=== PATIENT | female | born 1945 | race Caucasian/White ===

== ENCOUNTER 2025-07-17 17:34 | Inpatient (IN) | payer SELFPAY ==
[~2025-07-17] VITALS: Ht 160 cm; Wt 92.6 kg
[~2025-07-17 17:34] MED LIST: DOBUTamine/D5W 500mg/250ml premix IV ONE; calcium chloride 100 MG/1 ML inj IV ONE; epiNEPHrine 0.1mg/ml 10ml syringe ONE
--- NOTE | 2025-07-17 17:46 | ELECTROCARDIOGRAPH REPORT ---
[facility] Test Date: 2025-07-17 Test Time: 17:35:59 Pat Name: SONIA BRANTLEY Department: EMERGENCY ROOM Patient ID: [id number] Room: Gender: F Relief Pharmacist: MIRANDA : 1945 Requested By: PERI CASTRO Order Number: [id number] Reading MD: Measurements Intervals [place] Rate: 59 P: 0 NE: 61 QRS: 163 QRSD: 177 T: 25 QT: 470 QTc: 466 Interpretive Statements Sinus bradycardia Multiple premature complexes, vent & supraven Short NE interval Right bundle branch block Baseline wander in lead(s) I,aVL Please click the below link to view image of tracing.
--- NOTE | 2025-07-17 17:48 | Physician Documentation ---
History of Present Illness General Chief Complaint: Respiratory Arrest Stated Complaint: RESPIRATORY Time Seen by MD: 17:48 History of Present Illness Initial Comments The patient is a 80-year-old female who has had a history of atrial fibrillation as well as a coronary angiogram 18 years ago who had sudden onset collapse and CPR was performed for 4 minutes the patient received one round of epinephrine in the field through an IO that was placed in the right leg, the patient had return of spontaneous circulation after the epinephrine. The patient arrived in the emergency room conversant breathing on her own. The patient denies any preced ing chest pain or shortness of breath. She denies any recent changes to her medications. She states he recently went back into AFib and she does take Eliquis. The patient denies any chest pain or shortness of breath Medication Reconciliation Allergies: Coded Allergies: No Known Allergies (Unverified , 07/17/25) Scheduled Apixaban (Eliquis), 1 TAB PO BID, (Reported) Carvedilol Phosphate (Carvedilol ER), 1 CAP PO DAILY, (Reported) Losartan Potassium (Losartan Potassium), 1 TAB PO HS, (Reported) Propafenone HCl (Propafenone HCl), 1 CAP PO BID, (Reported) Rosuvastatin Calcium (Rosuvastatin Calcium), 1 TAB PO DAILY, (Reported) Past Medical History Past Medical History: Atrial Fibrillation, Coronary Artery Disease Review of Systems All Other Systems at this time: Reviewed and Negative Physical Exam Physical Exam Physical Exam VITALS: Reviewed and as above. GENERAL: Alert, no apparent distress. HEENT: Normocephalic, atraumatic, PERRL, EOMI, dry mucosa, no erythema RESPIRATORY: Lungs clear, normal breath sounds, no respiratory distress. CHEST: No accessory muscle use, no retractions CV: Bradycardic irregularly irregular rhythm, no edema, no murmur, No: JVD GI: Soft, non-tender, bowels sounds present, no rebound, guarding, or rigidity BACK: No CVA tenderness, or swelling MUSCULOSKELETAL: No deformities, no edema SKIN: Pale cool NEURO: Oriented x4, No motor or sensory deficit PSYCH: Normal mood and affect, no agitation Progress Progress Note The patient presented after 4 minutes of CPR and one round of epi in the field for sudden onset cardiac arrest, the patient had regain of spontaneous pulse and circulation in route to the emergency department and was conversant and at her neurologic baseline on arrival in the emergency department. The patient's EKG shows a bradycardic rate of uncertain etiology possibly atrial fib possibly complete heart block, the patient has remained hemodynamically stable the p atient will be admitted to the ICU the patient has been discussed with the oncoming physician the patient will be signed out to the oncoming physician for further management. Results/Orders Results/Orders Orders - OHLPERI SOSA MD Chest,Single View (07/17/25 17:44) Monitor (07/17/25 17:44) Saline Lock (07/17/25 17:44) Oxygen (07/17/25 17:44) Completed Orders - PERI BLACKWELL MD Chest,Single View (07/17/25 17:44) Cbc/Diff (07/17/25 17:44) BMP (07/17/25 17:44) PBNP (07/17/25 17:44) Electrocardiogram (07/17/25 17:44) Hs Troponin I W Calculations (07/17/25 17:44) Hs Troponin I W Calculations (07/17/25 19:44) Hs Troponin I W Calculations (07/17/25 20:44) Man Diff (07/17/25 17:38) Pathology Review (07/17/25 17:38) Normal Saline 1000ml (0.9% Sodium Chlori (07/17/25 18:15) MG (07/17/25 17:38) Vital Signs 07/17/25 07/17/25 07/17/25 07/17/25 17:45 17:49 18:04 18:08 Temp 99.1 Pulse 56 67 57 Resp 24 20 24 B/P (MAP) 129/89 96/77 (83) Pulse Ox 96 96 98 98 O2 Delivery Simple Mask* Nasal Cannula* Non-Rebreather O2 Flow Rate 10.0 10 10.0 2 FiO2 99 N/A 07/17/25 07/17/25 07/17/25 07/17/25 18:18 18:30 18:36 18:50 Pulse 49 46 49 Resp 19 24 24 22 B/P (MAP) 75/43 (54) 99/63 (75) 105/64 (78) Pulse Ox 100 98 99 O2 Flow Rate 10.0 10.0 10.0 07/17/25 18:58 Pulse 55 Resp 28 B/P (MAP) 127/83 (98) Laboratory Tests Test 07/17/25 17:38 07/17/25 17:46 White Blood Count 11.8 H Red Blood Count 3.96 L Hemoglobin 12.0 Hematocrit 37.5 Mean Corpuscular Volume 94.7 Mean Corpuscular Hemoglobin 30.2 Mean Corpuscular Hemoglobin Concent 31.9 L Red Cell Distribution Width 14.5 Platelet Count 219 Mean Platelet Volume 9.4 Neutrophils (%) (Auto) 46.1 Lymphocytes (%) (Auto) 44.2 Monocytes (%) (Auto) 6.6 Eosinophils (%) (Auto) 2.7 Basophils (%) (Auto) 0.4 Neutrophils # (Auto) 5.5 Lymphocytes # (Auto) 5.2 H Monocytes # (Auto) 0.8 Eosinophils # (Auto) 0.3 Basophils # (Auto) 0.0 CBC Comment Differential Total Cells Counted 100 Neutrophils % (Manual) 50.0 Lymphocytes % (Manual) 38.0 Monocytes % (Manual) 7.0 Eosinophils % (Manual) 2.0 Reactive Lymphocytes 3.0 H Platelet Estimate Normal Giant Platelets Few Red Blood Cell Morphology Normal Basophilic Stippling Hematology Pathologist Comment See note Sodium Level 142 Potassium Level 3.8 Chloride Level 104 Carbon Dioxide Level 24.6 Anion Gap 13 Blood Urea Nitrogen 25 H Creatinine 1.53 H Estimated GFR/1.73 m2 33 BUN/Creatinine Ratio 16.3 17.9 Glucose Level 138 H Calcium Level 8.5 Magnesium Level 2.4 Troponin I High Sensitivity 10 Pro-B-Type Natriuretic Peptide 1503 H Albumin 3.3 L Chemistry Comments Bedside Hemoglobin 11.9 L Bedside Hematocrit 35 Bedside Sodium 143 Bedside Potassium 3.8 Bedside Chloride 105 Bedside Total CO2 23 L Bedside Anion Gap 15 H Bedside Blood Urea Nitrogen 25 H Bedside Creatinine 1.4 H Bedside Estimated GFR (eGFR) 36 Bedside Glucose 142 H Bedside Ionized Calcium (Shannon) 1.17 Medical Decision Making Additional information obtaine: other Findings Twelve lead EKG demonstrates a bradycardia with bradycardia right bundle-branch block nonspecific ST-T abnormalities rate of 57 time of the EKG is 1737 the EKG was interpreted by me Differential Diagnosis Cardiac arrest, dysrhythmia, electrolyte derangement Addendum Sign-out note: I received sign-out on this patient at shift change. Briefly: She presents with cardiac arrest. Now she is awake and alert. Pending workup. Re-evaluation: The patient is awake and alert, appears pale. She is hypotensive and bradycardic. Reviewed her EKG which shows a abnormal rhythm, po ssibly reperfusion rhythm. The patient's blood pressure continued to decrease. She was given push dose epinephrine with minimal improvement. She was given IV calcium. We planned for central line or possible pacemaker. She was then started on dobutamine. She responded well to this, including increased heart rate and blood pressure. Labs returned without an obvious cause for this episode. Consult: I spoke to the internal medicine service, for admission in the hospital Critical Care Note The very real possibility of a deterioration of this patient's condition required the highest level of my preparedness for sudden, emergent intervention. I provided critical care services, which included medication orders, frequent reevaluations of the patient's condition and response to treatment, ordering and reviewing test results, and discussing the case with various consultants. Excludes time spent performing separately billable procedures. The critical care time associated with the care of the patient was 45 minutes in the management of hypotensive cardiogenic shock Flavio Gottlieb MD Departure Impression: Primary Impression: Cardiac arrest Referrals: NO PRIMARY CARE PROVIDER (PCP) Signature Scribe Signature: na Attestation: na The note accurately reflects work and decisions made by me.Peri Blackwell MD 07/21/25 07:13 PERI BLACKWELL MD Jul 17, 2025 17:48 FLAVIO GOTTLIEB MD Jul 19, 2025 03:09
[2025-07-17 17:49] VITALS: PULSE 67; RESP 20; O2SAT 96
[2025-07-17 17:54] LABS: MEAN PLATELET VOLUME 9.4 FL (7.4-10.4); RED CELL DISTRIBUTION WIDTH 14.5 % (11.5-14.5)
--- NOTE | 2025-07-17 18:12 | RADIOLOGY REPORT ---
CHEST RADIOGRAPH Indication: CP Technique: Single frontal view of the chest was obtained Comparison: None FINDINGS: Lines and Tubes: None Lungs: No focal consolidation. Fat interstitial prominence. Pleura: No effusion. No pneumothorax. Cardiomediastinal contours: Borderline cardiomegaly Bones: No acute osseous abnormality. IMPRESSION: Borderline cardiomegaly with mild pulmonary vascular congestion.
[2025-07-17 18:15] LABS: CREATININE 1.53 MG/DL (0.40-0.90); PRO BRAIN NATRIURETIC PEPTIDE 1503 PG/ML (0-450); TOTAL CARBON DIOXIDE 24.6 MMOL/L (24-32); eCRCL 25 ML/MIN; eGFR 33 ML/MIN
[2025-07-17] MEDS: normal saline 1000ml 1,000 ML IV ONE (18:18)
[2025-07-17] MEDS: normal saline 1000ml 1,000 ML IV SCH (18:25)
[2025-07-17] MEDS ORDERED: morphine 4 MG/ML inj SYRINge IV PRN (18:25)
[2025-07-17] MEDS ORDERED: DOPamine 400mg/D5W 250ml 250 ML IV SCH (18:25)
[2025-07-17] MEDS ORDERED: ondansetron/PF 4mg/2ml inj IV PRN (18:25)
[2025-07-17] MEDS: DOBUTamine-DoBUTrex 500mg/D5W 250 ML IV PRN (18:37)
[2025-07-17] MEDS ORDERED: DOBUTamine-DoBUTrex 500mg/D5W 250 ML IV PRN (18:40)
[2025-07-17 18:42] LABS: EOSINOPHILS % (MANUAL) 2.0 % (0-6); LYMPHOCYTES % (MANUAL) 38.0 % (21-51); MONOCYTES % (MANUAL) 7.0 % (2-12); NEUTROPHILS % (MANUAL) 50.0 % (42-75); REACTIVE LYMPHOCYTES % 3.0 % (0-0)
[2025-07-17 18:43] LABS: GIANT PLATELET FEW; PLATELET ESTIMATE NORMAL
--- NOTE | 2025-07-17 19:11 | HISTORY AND PHYSICAL-Residence ---
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 The patient was traveling from [facility] to [place] for the [facility], and as she got out of a car she progressively became short of breath and collapsed to the ground. A bystander noticed and started doing chest compressions and called the EMS. On arrival of the EMS, the patient was found to be in asystole. She was coded for 4 minutes and received epinephrine during this time. She was stabilized and brought into the ER, she was awake, alert and oriented x4. However, she was bradycardic and hypotensive due to which ICU was consulted for admission. She denies any prior similar history of cardiac arrest. She denies recent nausea, vomiting, diarrhea, recent illnesses that could cause electrolyte imbalances. Her baseline rhythm is first-degree heart block and her resting heart rate as per the patient is usually between 50-60 and her blood pressure runs most of time between 110/80 but sometimes does happen to go down to the 90s systolic. Allergies: Coded Allergies: No Known Allergies (Unverified , 07/17/25) Past Medical History Past Medical History CAD to the LAD x2 2002 Orthostatic hypotension, stopped midodrine in January 2025 as hypotension resolved Recurrence of paroxysmal atrial fibrillation in 2024- on metoprolol and Eliquis Past Surgical History Surgical History Comment Bilateral parathyroidectomy Past Social History Social History Comment Lifetime nonsmoker. Occasionally drinks alcohol, no other illicit drug abuse. 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 Ambulates independently ROS ROS As stated above in the HPI, otherwise all systems are reviewed and negative. Exam Vitals: Vital Signs Date Time Temp Pulse Resp B/P (MAP) Pulse Ox O2 Delivery O2 Flow Rate FiO2 07/17/25 18:58 55 28 127/83 (98) 07/17/25 18:50 99 10.0 07/17/25 18:08 Nasal Cannula* N/A Non-Rebreather 07/17/25 17:45 99.1 General: General: Awake and Alert, complaining of chest pain HEENT: Conjunctiva pink, Sclera clear, Mucus Membranes moist. Resp: Unlabored. Bilateral rhonchi heard Heart: Bradycardia, normal S1 and S2 without murmur, rub or gallop. Abdomen: Soft and non tender no organomegaly. Bowel sounds present Extremities: No cyanosis,clubbing or edema. Right IO in place Skin: Warm and Dry. No rashes Diagnostic Data Last Recorded Lab Results: 07/17/25 1738 07/17/25 1738 Advance Care Planning Advanced Care plannin - 30 Minutes Additional Plan Out of hospital cardiac arrest Asystole on the field Hypotension secondary to above EKG in the hospital reveals right bundle branch block, PACs and sinus bradycardia Stat echocardiogram ordered 2 L IV fluid boluses given, continue maintenance IVF at a rate of 75 cc/hour Heart rate and blood pressure improved significantly with dobutamine drip; currently running at a low rate at 1.5 units/kg/hour Consulted Dr. High, plan for pacemaker in a.m. Patient is currently asymptomatic with the bradycardia, if she develops any symptoms, prefer transcutaneous pacing Maintain map greater than 65. Maintain heart rate greater than 40 bpm Close telemetry monitoring Atrial fibrillation: Currently in sinus rhythm Continue telemetry monitoring Stop metoprolol at discharge Eliquis to be restarted 24 hours after pacemaker placement CAD status post PTCA: PTCA to the proximal and distal LAD in 2002 [place]s forensic materials engineer [place] [facility]. Garland Continue statin after reconciliation Acute on chronic kidney injury: Continue IVF Lines: PIV DVT prophylaxis: Lovenox Gi prophylaxis: Protonix Diet: Heart healthy Code status: Full code; POA sister Brielle Amada Villafana PGY3, Internal medicine resident Patient seen, examined and plan of care discussed with Dr. Nakia MD Patient is seen and examined and agree with above assessment and plan. Overall prognosis remains guarded Critical care time in excess of 35 minutes. Date of Service: Jul 17, 2025 Billing Provider: JANAY FELTON MD, DEEPANJALI, [facility] Jul 17, 2025 19:11 JANAY FELTON MD Jul 18, 2025 13:48
[2025-07-17] MEDS: fentaNYL/PF 50MCG/1 ML 2ML syringe IV ONE ×2 (20:27→20:40)
[2025-07-17] MEDS ORDERED: CARV10CP7 PO (20:53)
[2025-07-17] MEDS ORDERED: LOSA50TA64 PO (20:53)
[2025-07-17] MEDS ORDERED: ROSU40TA89 PO (20:53)
[2025-07-17] MEDS ORDERED: APIX5TAB3 PO (20:53)
[2025-07-17] MEDS ORDERED: [UNRECOGNIZED DRUG - CODE] PO (20:53)
[2025-07-17] MEDS: ondansetron/PF 4mg/2ml inj IV STA (21:04)
[2025-07-17 22:30] VITALS: BP 109/76; PULSE 72; RESP 30; O2SAT 92
[2025-07-17 23:00] VITALS: BP 109/54; PULSE 72; RESP 22; RESP 26; O2SAT 92; O2SAT 97
[2025-07-17 23:23] VITALS: PULSE 71; RESP 12; RESP 72; O2SAT 93
[2025-07-18] VITALS (27 sets, daily range): BP systolic 89–117; BP diastolic 52–72; PULSE 68–121; RESP 0–27; O2SAT 92–98
[2025-07-18] MEDS: ketorolac trometh 15mg/ml vial 15 MG/ML ML IV ONE (00:24)
[2025-07-18] MEDS ORDERED: DOBUTamine/D5W 500mg/250ml premix IV ONE (03:00)
[2025-07-18] MEDS ORDERED: epiNEPHrine 0.1mg/ml 10ml syringe ONE (03:00)
[2025-07-18] MEDS ORDERED: calcium chloride 100 MG/1 ML inj IV ONE (03:00)
[2025-07-18 06:04] LABS: MEAN PLATELET VOLUME 9.6 FL (7.4-10.4); RED CELL DISTRIBUTION WIDTH 14.2 % (11.5-14.5)
[2025-07-18 06:14] LABS: APTT 28 SECONDS (22-32); INR 1.2 INR
--- NOTE | 2025-07-18 06:19 | ELECTROCARDIOGRAPH REPORT ---
[facility] Test Date: 2025-07-17 Test Time: 21:35:18 Pat Name: SONIA WARNER Department: EMERGENCY ROOM Room: [place] [address] Gender: F Directory Compiler: MORIAH : 1945 Requested By: JANYA FELTON Order Number: [id number] Reading MD: Dr. CRISTHIAN High Measurements Intervals [place] Rate: 66 P: 27 DC: 339 QRS: -10 QRSD: 112 T: 83 QT: 427 QTc: 448 Interpretive Statements Sinus rhythm Atrial premature complex Prolonged DC interval Probable left atrial enlargement Incomplete left bundle branch block Low voltage, extremity and precordial leads Anterior Q waves, possibly due to ILBBB Electronically Signed On 07-19-2025 15:17:[address] CRISTHIAN High Please click the below link to view image of tracing.
[2025-07-18 06:27] LABS: CREATININE 1.35 MG/DL (0.40-0.90); PHOSPHORUS 4.3 MG/DL (2.3-4.5); TOTAL CARBON DIOXIDE 23.7 MMOL/L (24-32); eCRCL 28 ML/MIN; eGFR 38 ML/MIN
[2025-07-18 07:48] LABS: ISTAT ANION GAP 15.0 (8-12); ISTAT BUN 25.0 mg/dL (7-18); ISTAT CL 105.0 mmol/L (99-107); ISTAT CREATININE 1.4 mg/dL (0.6-1.1); ISTAT GLUCOSE 142.0 mg/dL (70-104); ISTAT HGB 11.9 g/dl (12.0-16.0); ISTAT Hct 35.0 %PCV (35-45); ISTAT IONIZED CALCIUM 1.17 mmol/L (1.03-1.32); ISTAT K 3.8 mmol/L (3.5-5.1); ISTAT NA 143.0 mmol/L (135-145); ISTAT TOTAL CO2 23.0 mmol/L (24-32); ISTAT eGFR 36.0 ML/MIN; POC BUN/CREATININE RATIO 17.9 (6.6-38.0)
[2025-07-18] MEDS ORDERED: enoxaparin 40mg/0.4ml syringe SUBCUT SCH (08:00)
[2025-07-18] MEDS ORDERED: fentaNYL/PF 50MCG/1 ML 2ML syringe ONE (09:50)
[2025-07-18] MEDS ORDERED: iohexol 350 MG/ML 50ML vial IV ONE (09:50)
[2025-07-18] MEDS ORDERED: midazolam 1 mg/ML 2ml injection ONE ×2 (09:50→11:33)
[2025-07-18] MEDS ORDERED: LIDOcaine 1% W/epiNEPHrine 1:100,000 20ml vial ONE (09:51)
[2025-07-18] MEDS: normal saline 500ml IV soln 500 ML IV SCH (12:54)
[2025-07-18] MEDS ORDERED: HYDROcodone/acetaminophen 10/325mg tab PO PRN (12:55)
[2025-07-18] MEDS ORDERED: HYDROcodone/acetaminophen 5mg/325mg tablet PO PRN (12:55)
--- NOTE | 2025-07-18 13:53 | PROGRESS NOTE ---
Subjective Subjective Patient is seen today. She is status post pacemaker implantation after cardiac arrest and high-grade AV block. Reason for visit: Pulmonary critical care follow-up Reviewed: Care Plan, H&P, Labs, Radiology Review of Systems Changes from previous H/P or p: No Changes Daily Progress Note Exam Vitals Vital Signs Date Time Temp Pulse Resp B/P (MAP) Pulse Ox O2 Delivery O2 Flow Rate FiO2 07/18/25 13:00 76 19 107/63 (78) 96 Nasal Cannula 5.0 07/18/25 07:53 36 07/18/25 03:00 98.2 Result Diagram: 07/18/2514 07/18/2514 Exam General: Awake and Alert, complaining of chest pain HEENT: Conjunctiva pink, Sclera clear, Mucus Membranes moist. Resp: Unlabored. Bilateral rhonchi heard Heart: Bradycardia, normal S1 and S2 without murmur, rub or gallop. Abdomen: Soft and non tender no organomegaly. Bowel sounds present Extremities: No cyanosis,clubbing or edema. Right IO in place Skin: Warm and Dry. No rashes Results Coagulation Studies Laboratory Tests Test 07/18/25 05:14 Prothrombin Time 11.8 SECONDS (9.0-12.0) INR International Normalized Ratio 1.2 INR Activated Partial Thromboplast Time 28 SECONDS (22-32) Coagulation Comments VTE VTE Risk Score VTE Risk Score Reference Ranges: Score 0-1 = Low Risk (Aggressive mobilization; early ambulation; no VTE prophylaxis required) Score 2: Moderate Risk (Intermittent/Pneumatic Compression Device OR Lovenox/Heparin/Coumadin) Score 3-4: High Risk (Intermittent/Pneumatic Compression Device AND Lovenox/Heparin/Coumadin) Score > or = 5: Highest Risk (Intermittent/Pneumatic Compression Device AND Lovenox/Heparin/Coumadin) Assessment/Plan Plan Advanced Care planning: Additional Plan Out of hospital cardiac arrest Asystole on the field Hypotension secondary to above Status post pacemaker implantation. Off pressors. 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 Garland Continue statin after reconciliation Acute on chronic kidney injury: Continue IVF Lines: PIV DVT prophylaxis: Lovenox Gi prophylaxis: Protonix Diet: Heart healthy Code status: Full code; POA sister Brielle Overall prognosis remains guarded Critical care time in excess of 35 minutes. JANAY FELTON MD Jul 18, 2025 13:53
--- NOTE | 2025-07-18 14:44 | CARDIOLOGY REPORT ---
APPROVED REPORT EXAM: Comprehensive 2D, Doppler, and color-flow Echocardiogram. Patient Location: 2008 A Blood Pressure: 101/65 mmHg Heart Rate: 71 bpm Rhythm: Sinus Rhythm Indications Cardiomegaly S/P Cardiac Arrest (4 min of CPR) Respiratory Distress 1st Degree Heart block/ Bradycardia Hx of CAD Stents X 2 LAD (2002) Aircraft Cleaner: MD Karlee (Consult) Previous echo: None available (Patient is from the area) 2D Dimensions RVDd 3.4 cm LA Diam 3.9 cm RA Minor 4.1 cm LVOT Diameter 2.13 (1.8-2.4cm) Ao Asc Diam. 3.15 cm IVC 16.00 mm CO 3.0 L/min M-Mode Dimensions IVSd 1.28 (0.7-1.1cm) LVDd 4.49 (4.0-5.6cm) PWd 1.32 (0.7-1.1cm) IVSs 1.52 cm LVDs 2.92 (2.0-3.8cm) FS (%) 36 % PWs 1.64 cm ESV(Teich) 22.5 ml LVEF(%) 66 (>50%) Aortic Valve AoV Peak Andrew. 259.9 cm/s AoV VTI 51.2 cm AO Peak GR. 27.0 mmHg AO Mean GR. 14 mmHg LVOT VTI 20.00 cm LVOT Peak Andrew. 106.1 cm/s DANDRE (VTI) 1.54 cm2 AV DI 0.39 % Mitral Valve MV E Velocity 105.5 cm/s MV Peak Gr. 6 mmHg MV DECEL TIME 244 ms MV A Velocity 64.8 cm/s MV Mean Gr. 2 mmHg MV PHT 68 ms E/A Ratio 1.6 MV VMax 125.7 cm/s MV VMean 64.2 cm/s MVA VTI 2.87 cm2 MV VTI 28.8 cm Tricuspid Valve TR P. Velocity 258 cm/s RAP ESTIMATE 10 mmHg TR Peak Gr. 27 mmHg RVSP 37 mmHg LEFT VENTRICLE Normal LV size and function. Mild concentric hypertrophy. Overall LVEF is 65-70%. RIGHT VENTRICLE Right ventricle is mildly dilated with normal function. Estimated PA systolic pressure is 37 mmHg. ATRIA The left atrium size is normal. Right atrium is mildly dilated. AORTIC VALVE Trileaflet AV appears moderately calcified with at least mild stenosis. DANDRE: 1.54 cmsq; Pkv : 259.9 cm/sec; Gradients: 27/14 mmHG. No significant insufficiency appreciated. Doppler measurements are estimates due to poor Doppler angles. Recommend clinical correlation if indicated. MITRAL VALVE Moderate MV annular calcification with very mild stenosis. MVA:2.89 cmsq (Averaged VTI); Pkv: 125.7 cm/sec; Gradients: 6/2 mmHG. Mild regurgitation. TRICUSPID VALVE TV appears structurally normal with mild regurgitation. PULMONIC VALVE Normal PV without stenosis, physiologic insufficiency. GREAT VESSELS The aortic root is normal in size. IVC is normal in size and collapses less than 50% with inspiration. PERICARDIUM Normal pericardium. Epicardial fat pad is noted. No pericardial effusion seen. Other Information Study Quality: Fair. TDS due to body habitus and respiratory status. Conclusion Overall LVEF is 65-70%. Normal LV size and function. Mild concentric hypertrophy. Right ventricle is mildly dilated with normal function. Estimated PA systolic pressure is 37 mmHg. Trileaflet AV appears moderately calcified with at least mild stenosis. DANDRE: 1.54 cmsq; Pkv : 259.9 cm/sec; Gradients: 27/14 mmHG. No significant insufficiency appreciated. Doppler measurements are estimates due to poor Doppler angles. Recommend clinical correlation if indicated. Moderate MV annular calcification with very mild stenosis. MVA:2.89 cmsq (Averaged VTI); Pkv: 125.7 cm/sec; Gradients: 6/2 mmHG. Mild regurgitation. TV appears structurally normal with mild regurgitation. Normal PV without stenosis, physiologic insufficiency. Normal pericardium. Epicardial fat pad is noted. No pericardial effusion seen.
[2025-07-18] MEDS: HYDROcodone/acetaminophen 10/325mg tab PO PRN (14:52)
[2025-07-18] MEDS ORDERED: vancomycin/NS 1 GM ADD-VANTAGE 250 ML IV ONE (15:00)
[2025-07-18] MEDS: vancomycin/NS 1 GM ADD-VANTAGE 250 ML X 1 DOSE IV ONE (15:30)
--- NOTE | 2025-07-18 18:11 | RADIOLOGY REPORT ---
CHEST RADIOGRAPH Indication: s/p pacemaker placement Technique: Single frontal view of the chest was obtained COMPARISON: DI CHEST,SINGLE VIEW on DOS: 07/17/25 FINDINGS: Lines and Tubes: Left chest pacemaker Lungs: Congestion Pleura: No effusion.No pneumothorax. Cardiomediastinal contours: Cardiomegaly Bones: Unremarkable IMPRESSION: Pulmonary vascular congestion, mild
[2025-07-19] VITALS (18 sets, daily range): BP systolic 81–109; BP diastolic 52–66; PULSE 79–127; RESP 14–22; TEMP 96.6–98.1; O2SAT 90–97
[2025-07-19 03:40] LABS: MEAN PLATELET VOLUME 9.3 FL (7.4-10.4); RED CELL DISTRIBUTION WIDTH 14.2 % (11.5-14.5)
[2025-07-19 05:48] LABS: APTT 30 SECONDS (22-32); INR 1.1 INR
[2025-07-19 06:11] LABS: CREATININE 0.97 MG/DL (0.40-0.90); PHOSPHORUS 2.9 MG/DL (2.3-4.5); TOTAL CARBON DIOXIDE 23.7 MMOL/L (24-32); eCRCL 40 ML/MIN; eGFR 56 ML/MIN
--- NOTE | 2025-07-19 11:02 | PROGRESS NOTE ---
Subjective Subjective Patient is seen today. She is status post pacemaker implantation after cardiac arrest and high-grade AV block. Complain of anterior chest wall pains after cardiac arrest and CPR. Reason for visit: Pulmonary critical care follow-up Reviewed: Care Plan, H&P, Labs, Radiology Daily Progress Note Exam Vitals Vital Signs Date Time Temp Pulse Resp B/P (MAP) Pulse Ox O2 Delivery O2 Flow Rate FiO2 07/19/25 10:50 22 07/19/25 10:00 104 97/53 (68) 96 Nasal Cannula 2.0 07/19/25 08:00 96.8 07/18/25 18:53 36 Result Diagram: 07/19/25 0322 07/19/25 0433 Exam General: Awake and Alert, complaining of chest pain HEENT: Conjunctiva pink, Sclera clear, Mucus Membranes moist. Resp: Unlabored. Bilateral rhonchi heard Heart: Bradycardia, normal S1 and S2 without murmur, rub or gallop. Abdomen: Soft and non tender no organomegaly. Bowel sounds present Extremities: No cyanosis,clubbing or edema. Right IO in place Skin: Warm and Dry. No rashes Results Coagulation Studies Laboratory Tests Test 07/19/25 04:33 Prothrombin Time 11.6 SECONDS (9.0-12.0) INR International Normalized Ratio 1.1 INR Activated Partial Thromboplast Time 30 SECONDS (22-32) Coagulation Comments VTE VTE Risk Score VTE Risk Score Reference Ranges: Score 0-1 = Low Risk (Aggressive mobilization; early ambulation; no VTE prophylaxis required) Score 2: Moderate Risk (Intermittent/Pneumatic Compression Device OR Lovenox/Heparin/Coumadin) Score 3-4: High Risk (Intermittent/Pneumatic Compression Device AND Lovenox/Heparin/Coumadin) Score > or = 5: Highest Risk (Intermittent/Pneumatic Compression Device AND Lovenox/Heparin/Coumadin) Assessment/Plan Plan Advanced Care planning: Additional Plan Out of hospital cardiac arrest Asystole on the field Hypotension secondary to above: Resolved and off pressors. Status post pacemaker implantation. Off pressors. Atrial fibrillation: Currently in AFib. Continue telemetry monitoring Restart Eliquis as per Cardiology Services. 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 Garland Continue statin after reconciliation Acute on chronic kidney injury: Continue IVF Lines: PIV DVT prophylaxis: Resume Eliquis. Gi prophylaxis: Protonix Diet: Heart healthy Code status: Full code; POA sister Brielle Overall prognosis remains guarded Critical care time in excess of 35 minutes. JANAY FELTON MD Jul 19, 2025 11:02
[2025-07-19] MEDS: normal saline 500ml IV soln 500 ML IV ONE (11:22)
[2025-07-19] MEDS: metoprolol tartrate 1mg/ml inj IV ONE ×2 (11:30→12:00)
[2025-07-19] MEDS: propafenone 150mg tablet PO SCH (11:41)
--- NOTE | 2025-07-19 15:07 | PROGRESS NOTE ---
Progress Note Cardiology Providers to CC ~ Subjective Subjective Patient seen and examined in ICU this morning. Overall she is doing well. Pacemaker is working fine. Patient has developed AFib with RVR. Objective Result Diagram: 07/19/25 0322 07/19/25 0433 Objective General: Normal body habitus, no acute distress, HEENT: Sclerae clear, PERRL, gums without lesions or bleeding, oropharynx clear without erythema or exudate. Neck: Supple without enlargement of the thyroid, or lymphadenopathy, Chest: Normal size and shape, no tenderness, nonlabored breathing, Breath sounds clear to auscultation. Heart: Irregularly irregular, variable S1. Abdomen: Soft, nontender, no organomegaly, bowel sounds present. Extremities: No edema cyanosis or clubbing. Pacemaker site looks good. Coagulation Studies Laboratory Tests Test 07/19/25 04:33 Prothrombin Time 11.6 SECONDS (9.0-12.0) INR International Normalized Ratio 1.1 INR Activated Partial Thromboplast Time 30 SECONDS (22-32) Coagulation Comments Problem\Assessment\Plan Additional Plan 1. 80-year-old female with third-degree AV block with asystole: Status post dual-chamber ppm on 07/18/25. Pacemaker working well. Chest x-ray shows no pneumothorax. Patient educated about staple removal in one week with her primary building construction teacher 2. History of PAF: It recurred this morning. Resume propafenone 300 mg p.o. t.i.d. resume anticoagulation continue beta blockers. 3. CAD status post proximal and distal LAD stent: Recommend aspirin 81 mg p.o. q.d. 4. Hypertension hyperlipidemia counseled on coronary risk factor modification MACI MOLINA MD Jul 19, 2025 15:07
[2025-07-19] MEDS: normal saline 1000ml 500 ML IV ONE (22:05)
[2025-07-20] VITALS (30 sets, daily range): BP systolic 82–121; BP diastolic 46–78; PULSE 64–124; RESP 12–26; TEMP 97.5–97.8; O2SAT 91–99
[2025-07-20] MEDS: normal saline 1000ml 500 ML IV ONE (02:10)
[2025-07-20 06:25] LABS: MEAN PLATELET VOLUME 9.3 FL (7.4-10.4); RED CELL DISTRIBUTION WIDTH 14.0 % (11.5-14.5)
[2025-07-20 06:38] LABS: APTT 33 SECONDS (22-32); INR 1.2 INR
[2025-07-20 06:46] LABS: CREATININE 0.96 MG/DL (0.40-0.90); PHOSPHORUS 3.0 MG/DL (2.3-4.5); TOTAL CARBON DIOXIDE 22.2 MMOL/L (24-32); eCRCL 40 ML/MIN; eGFR 56 ML/MIN
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
[2025-07-20] MEDS: aspirin 81mg, enteric-coated 1 TAB TABLET.DR PO SCH (08:00)
[2025-07-20] MEDS ORDERED: propafenone 150mg tablet PO SCH ×2 (08:00→13:00)
--- NOTE | 2025-07-20 08:38 | RADIOLOGY REPORT ---
CHEST RADIOGRAPH Indication: hypoxia Technique: Single frontal view of the chest was obtained Comparison: DI CHEST,SINGLE VIEW on DOS: 07/18/25, DI CHEST,SINGLE VIEW on DOS: 07/17/25, DI CHEST,SINGLE VIEW on DOS: 07/18/25 FINDINGS: Lines and Tubes: Left chest pacemaker Lungs: Congestion Pleura: No effusion.No pneumothorax. Cardiomediastinal contours: Cardiomegaly Bones: Unremarkable IMPRESSION: 1. Pulmonary vascular congestion, mild
[2025-07-20] MEDS: amiodarone 150mg/dext, iso-os 100 ML IV ONE (08:40)
[2025-07-20] MEDS: albuterol 2.5 MG/3 ML nebule CONTNEB PRN (08:52)
[2025-07-20] MEDS: metoprolol tartrate 1mg/ml inj IV SCH (08:55)
[2025-07-20] MEDS: amiodarone/D5 360MG/200ML BAG 200 ML IV SCH (10:35)
--- NOTE | 2025-07-20 10:45 | PROGRESS NOTE- Residence ---
Progress Note - Resident Providers to CC Resident Creating Document: GABRIELE SLATER RES ~ Antibiotic Timeout Antibiotic Ordered?: No Subjective A rapid response was activated due to acute hypoxia. The patient's oxygen saturation dropped to the 80s. On exam, she had moderate bilateral wheezing. HR was in the 130s, consistent with AFib with RVR. Blood pressure was soft. She remained alert, able to speak in full sentences and responded appropriately. Mentation was intact. Pacemaker was function appropriately. ProBNP was elevated. Chest x-ray showed vascular congestion with 2+ pedal edema. She had received 1 L NS bolus overnight and has been on maintenance fluid at 100 mL/hour. Objective Vital Signs Date Time Temp Pulse Resp B/P (MAP) Pulse Ox O2 Delivery O2 Flow Rate FiO2 07/20/25 10:11 60 07/20/25 10:10 77 16 97 07/20/25 08:36 Non-Rebreather 16 07/20/25 02:00 97.8 82/50 (61) General: Awake and Alert, BiPAP Resp: Bilateral wheezing Heart: Regular rhythm, heart rate in 130s Abdomen: Soft and non tender no organomegaly Extremities: 2+ pedal edema Skin: Warm and Dry. Result Diagram: 07/20/25 0551 07/20/25 0551 Coagulation Studies Laboratory Tests Test 07/20/25 05:51 Prothrombin Time 11.9 SECONDS (9.0-12.0) INR International Normalized Ratio 1.2 INR Activated Partial Thromboplast Time 33 SECONDS (22-32) H Coagulation Comments Advance Care Planning Advanced Care plannin - 30 Minutes Assessment Assessment Assessment and plan: 80-year-old female with third-degree AV block, status post dual-chamber pacemaker placement on July 14 2025, now presenting with the acute hypoxia in the atrial fibrillation with RVR. Third-degree AV block with asystole Status post dual-chamber pacemaker 07/18/2025. Device functioning appropriately. No evidence of lead malfunction Staple removal with her primary document imaging specialist in one week Atrial fibrillation with RVR Heart rate in the 130s Propafenone discontinued Amiodarone 150 mg IV bolus given, followed by amiodarone drip Lopressor 5 mg IV given Continue close telemetry monitoring and upgrad to CICU if becomes hemodynamically unstable. Continue Eliquis 5 mg twice daily Acute hypoxemic respiratory failure Acute CHFpEF exacerbation CXR shows pulmonary vascular congestion with 2+ pedal edema Received 1 L IV fluid bolus or night + 100 mL/hour maintenance. Discontinued BiPAP initiated for hypoxemic respiratory failure Monitor respiratory status closely Diuresis with Lasix 20 mg IV daily Reassess ABG, mental status, and oxygenation frequently Coronary artery disease, status post proximal distal LAD stent Continuous with a rate 1 mg p.o. daily Hypertension Hyperlipidemia Counseled on coronary risk factor modifications Gabriele Slater Internal Medicine Resident, PGY-3 (Cardiology) Patient seen and examined in PCU by Dr. Janel AGUIRRE. Patient with AFib with RVR and CHF became more symptomatic transferred to ICU. Started on IV amiodarone. Also got some digoxin for rate control. Has been diuresing well with Lasix. Continue anticoagulation for AFib. Continue to monitor her heart rate blood pressure and hemodynamics. Date of Service: Jul 20, 2025 Billing Provider: MACI MOLINA MD, SHAMS, RES Jul 20, 2025 10:45 MACI MOLINA MD Jul 20, 2025 17:26
--- NOTE | 2025-07-20 11:53 | ELECTROCARDIOGRAPH REPORT ---
[facility] Test Date: 2025-07-20 Test Time: 07:01:27 Pat Name: SONIA WARNER Department: [facility] 3S Room: [place] [address] [address] Gender: F Practice Business Asst: : 1945 Requested By: MACI HIGH Order Number: [id number] Reading MD: Dr. CRISTHIAN High Measurements Intervals [place] Rate: 114 P: 0 MN: 0 QRS: 10 QRSD: 104 T: 177 QT: 368 QTc: 507 Interpretive Statements Atrial fibrillation Low voltage, precordial leads Abnormal R-wave progression, early transition Repol abnrm suggests ischemia, anterolateral Prolonged QT interval Electronically Signed On 07-20-2025 12:49:[address] CRISTHIAN High Please click the below link to view image of tracing.
[2025-07-20] MEDS: ipratropium/albuterol 3ml nebule NEB SCH (12:16)
--- NOTE | 2025-07-20 12:18 | RADIOLOGY REPORT ---
CHEST RADIOGRAPH Indication: RIB PAIN , S/P CPR Technique: DI RIBS,BILAT 3VW MIN COMPARISON: None FINDINGS: Left chest dual lead cardiac pacer device. The cardiac silhouette is enlarged. The lungs demonstrate bilateral patchy airspace opacities. The pulmonary vasculature is prominent. Moderate left and small right pleural effusions. There is no pneumothorax. No identifiable rib fracture. If concern persists recommend obtaining CT chest to evaluate. IMPRESSION: As above
[2025-07-20 12:30] LABS: ABG BASE EXCESS -7.8 mmol/L (-2.0-3.0); ABG HCO3 17.1 mmol/L (21.0-28.0); ABG OXYGEN SATURATION 99.6 % (94.0-98.0); ABG PCO2 (T) 31.6 mmHg (32.0-45.0); ABG PH (T) 7.349 (7.350-7.450); ABG PO2 (T) 225.6 mmHg (83.0-108.0); ALLEN'S TEST POSITIVE; FCOHb 0.4 % (0.5-1.5); FHHb 0.4 % (0.0-5.0); FIO2 90.0 mmHg/%; FMetHb 0.3 % (0.0-1.5); FO2Hb 98.9 % (94.0-98.0); MODE MASK - BIPAP; PATIENT TEMPERATURE 36.4; RESPIRATORY RATE 12 b/min; TOTAL HEMOGLOBIN 10.2 G/dl (12.0-16.0)
[2025-07-20] MEDS: digoxin 250mcg/ml 2ml ampule IV ONE ×2 (13:42→19:41)
[2025-07-20] MEDS: NORepinephrine 8mg/ 250ml NS 250 ML IV SCH (18:23)
--- NOTE | 2025-07-20 18:34 | RADIOLOGY REPORT ---
CHEST RADIOGRAPH Indication: central line placement Technique: Single frontal view of the chest was obtained COMPARISON: DI CHEST,SINGLE VIEW on DOS: 07/20/25, DI CHEST,SINGLE VIEW on DOS: 07/18/25, DI CHEST,SINGLE VIEW on DOS: 07/17/25 FINDINGS: Right-sided central line with tip near the cavoatrial junction. Left chest wall pacing device with leads unchanged. Stable enlargement of the cardiac silhouette with diffuse prominence of the pulmonary vasculature. Stable small layering bilateral pleural effusions with mild bibasilar atelectatic changes. No pneumothorax or other adverse interval change IMPRESSION: Right-sided central line appears well positioned terminating near the cavoatrial junction.
--- NOTE | 2025-07-20 19:07 | PROCEDURE NOTE- Residance ---
Procedure Note Providers to CC ~ Planned Procedure Right internal jugular central venous catheter placement Description Consent was obtained and a time-out was completed verifying correct patient, procedure, site, and positioning. The patient was placed in appropriate dependent position for central line placement. The patients right neck was prepped and draped in sterile fashion. 1% Lidocaine was used to anesthetize the surrounding skin area. Ultrasound was used to identify the vein and observe the needle entering the vein. A quadruple lumen catheter was introduced into the internal jugular vein using Seldinger technique. The catheter was threaded smoothly over the guide wire and guide wire was removed. Appropriate blood return was obtained and each lumen of the catheter was evacuated of air and flushed with sterile saline. The catheter was then sutured in place to the skin and a sterile dressing applied. The patient tolerated the procedure well and there were no complications. Blood loss was minimal. Date of Service: Jul 20, 2025 Billing Provider: JANAY FELTON MD, SOWMYA MANJARI, [facility] Jul 20, 2025 19:07 JANAY FELTON MD Jul 25, 2025 11:59
--- NOTE | 2025-07-20 19:14 | PROGRESS NOTE- Residence ---
Progress Note - Resident Providers to CC Resident Creating Document: NOEMI SUH, RES ~ Antibiotic Timeout Antibiotic Ordered?: Yes Subjective The patient was seen and examined at bedside today. This morning the patient was hypoxic when she was off BiPAP and her saturations dropped down to 50s. She was later transferred to the ICU for close monitoring. She continued being hypotensive and required initiation of Levophed. Objective Vital Signs Date Time Temp Pulse Resp B/P (MAP) Pulse Ox O2 Delivery O2 Flow Rate FiO2 07/20/25 18:00 100.2 96 18 95/59 (71) 97 Bi-pap/CPAP 50 07/20/25 08:36 16 Result Diagram: 07/20/25 0551 07/20/25 0551 Elderly female, alert and oriented, on BiPAP Head: Normocephalic with an atraumatic Eyes: Pupils- 3mm, reacting to light, conjunctiva- anicteric Nose and throat: No polyps, septum- normal, no mucosal ulcers Neck: Supple, no lymphadenopathy, no carotid bruit, right IJV line in place Respiratory: On BiPAP, coarse breath sounds bilaterally Cardiac: S1-S2 heard, rhythm irregular, no gallop/murmur Abdomen: non distended, no tenderness, no organomegaly, bowel sounds - heard Extremities: no clubbing, 2+ pedal edema, no deformities, peripheral pulses - 2+ Skin: warm and dry, no rash, no purpura Neuro: No focal deficit, gross cranial nerve exam - normal Coagulation Studies Laboratory Tests Test 07/20/25 05:51 Prothrombin Time 11.9 SECONDS (9.0-12.0) INR International Normalized Ratio 1.2 INR Activated Partial Thromboplast Time 33 SECONDS (22-32) H Coagulation Comments Assessment Assessment Cardiovascular system: Out of hospital cardiac arrest Hypotension secondary to above 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 High is on board. The patient has been brought back to the ICU today for close monitoring. Patient started on Levophed for hypotension. Continue Lasix 20 mg IV daily for diuresis. Close telemetry monitoring. Atrial fibrillation with RVR She continues to have AFib with RVR. Currently on amiodarone running at 1 mg/minute. Because of hypotension, she was started on digoxin by Cardiology. Discontinue metoprolol. Eliquis for anticoagulation. Continue telemetry monitoring. Acute hypoxemic respiratory failure Likely secondary to CHF exacerbation Continue BiPAP. CAD status post PTCA: PTCA to the proximal and distal LAD in 2002 Follows boom tender in [place]; Dr. Garland Continue atorvastatin 80 mg and aspirin 81 mg daily. Acute on chronic kidney injury, resolved Continue to monitor kidney functions. Lines: Right IJV line DVT prophylaxis: Eliquis Gi prophylaxis: Protonix Diet: Heart healthy Code status: Full code; POA sister Brielle Noemi Suh MD Internal Medicine Resident, PGY-2 The patient was seen, examined and discussed with the attending physician, Dr. Yee. Case discussed prior to morning conference ,at morning conference and multidisciplinary rounds. Agree with above assessment and plan. CC Time 35 minutes Date of Service: Jul 20, 2025 Billing Provider: JANAY YEE MD, SOWMYA MANJARI, RES Jul 20, 2025 19:14 JANAY YEE MD Jul 25, 2025 11:55
--- NOTE | 2025-07-20 21:44 | PROGRESS NOTE ---
Daily Progress Note Providers to CC ~ Antibiotic Timeout Antibiotic Ordered?: No Subjective Patient was seen in presence of nursing staff. They called rapid response early this morning for her blood pressure was soft. warehouse distribution specialist evaluated the patient and further order placed. We will follow ABG x-ray chest. Objective Vital Signs Date Time Temp Pulse Resp B/P (MAP) Pulse Ox O2 Delivery O2 Flow Rate FiO2 07/20/25 21:04 88 07/20/25 19:29 15 Bi-pap 45 07/20/25 19:26 97 07/20/25 19:00 100.4 100/55 (70) 07/20/25 08:36 16 Result Diagram: 07/20/25 0551 07/20/25 0551 General-patient not in any acute distress, awake ill-appearing, obese HEENT-atraumatic normocephalic, neck supple without elevated JVD, no thyromegaly or carotid bruit. No lymphadenopathy bilaterally. Eyes-no icterus or pallor seen in eyes Chest-decreased breathing sounds to auscultation bilaterally, breathing nonlabored no tachypnea, no wheezing, no crepitation, no crackles.on BiPAP Heart-S1-S2 normal, regular heart rate no murmur Abdomen bowel sounds positive on auscultation, soft nondistended nontender no guarding, no rigidity Skin -visible bruise over right flank. 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 The patient was traveling from [facility] to [facility], and as she got out of a car she progressively became short of breath and collapsed to the ground. A bystander noticed and started doing chest compressions and called the EMS. On arrival of the EMS, the patient was found to be in asystole. She was coded for 4 minutes and received epinephrine during this time. She was stabilized and brought into the ER, she was awake, alert and oriented x4. However, she was bradycardic and hypotensive due to which ICU was consulted for admission. she is currently in PCU. Out of hospital cardiac arrest Asystole on the field Hypotension secondary to above EKG in the hospital reveals right bundle branch block, PACs and sinus bradycardia Heart rate and blood pressure stable Consulted Dr. 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 Garland will Continue statin Acute on chronic kidney injury: Continue IVF Lines: PIV DVT prophylaxis: Lovenox Gi prophylaxis: Protonix Diet: Heart healthy Code status: Full code; POA sister Brielle Patient's current condition is guarded we will continue to follow patient in PCU . Date of Service: Jul 20, 2025 Billing Provider: DYLAN CRONIN MD Common Visit Codes: [id number] INP/OBS CARE(HIGH) DYLAN CRONIN MD Jul 20, 2025 21:44
[2025-07-20] MEDS ORDERED: morphine 4 MG/ML inj SYRINge IV PRN (21:50)
[2025-07-20] MEDS: albumin (human) 25% 100 ML IV solution IV ONE (22:42)
[2025-07-20] MEDS: NORepinephrine 8mg/ 250ml NS 250 ML IV PRN (22:57)
[2025-07-21] VITALS (49 sets, daily range): BP systolic 83–129; BP diastolic 39–71; PULSE 64–100; RESP 13–35; TEMP 99.5; O2SAT 91–99
[2025-07-21 02:45] LABS: MEAN PLATELET VOLUME 9.0 FL (7.4-10.4); RED CELL DISTRIBUTION WIDTH 14.0 % (11.5-14.5)
[2025-07-21 02:57] LABS: APTT 37 SECONDS (22-32); INR 1.3 INR
[2025-07-21 03:01] LABS: CREATININE 1.02 MG/DL (0.40-0.90); PHOSPHORUS 2.8 MG/DL (2.3-4.5); TOTAL CARBON DIOXIDE 24.4 MMOL/L (24-32); eCRCL 38 ML/MIN; eGFR 52 ML/MIN
[2025-07-21] MEDS ORDERED: magnesium sulf-water 2g/50mL 50 ML IV PRN (04:25)
[2025-07-21] MEDS ORDERED: potassium Cl 20 mEq SR tablet PO PRN (04:25)
[2025-07-21] MEDS ORDERED: potassium Cl 40MEQ/270ML bag 270 ML IV PRN (04:25)
[2025-07-21] MEDS ORDERED: potassium Cl 40MEQ/1/2NS 520ml 520 ML IV PRN (04:25)
[2025-07-21] MEDS ORDERED: magnesium sulf-water 4G/100mL 100 ML IV PRN (04:25)
[2025-07-21] MEDS: potassium Cl 20 mEq SR tablet PO PRN (04:51)
[2025-07-21] MEDS: pantoprazole 40mg Tablet.DR PO SCH (07:04)
[2025-07-21 07:41] LABS: LEUKOCYTE ESTERASE ,URINE NEGATIVE (Neg); NITRITES, URINE NEGATIVE (Neg); OCCULT BLOOD,URINE MODERATE (Neg)
[2025-07-21] MEDS: K and/or MAG REPLACEMENT MC SCH (07:41)
[2025-07-21 07:43] LABS: UA COLLECTION TYPE CLN CATCH MIDSTREAM
[2025-07-21 07:47] LABS: AMORPHOUS URATES 1+; SQUAMOUS EPITHELIAL CELL,UR FEW /LPF (FEW)
--- NOTE | 2025-07-21 08:24 | RADIOLOGY REPORT ---
EXAM: DI CHEST,SINGLE VIEW Indication: HYPOXIA Technique: Single frontal view of the chest was obtained Comparison: DI CHEST,SINGLE VIEW on DOS: 07/20/25, DI CHEST,SINGLE VIEW on DOS: 07/20/25, DI CHEST,SINGLE VIEW on DOS: 07/18/25, DI CHEST,SINGLE VIEW on DOS: 07/17/25 FINDINGS: Lines and Tubes: Cardiac pacemaker projects over left chest wall. Right internal jugular central venous catheter tip projects over the SVC. Lungs: Small bilateral pleural effusions. Bibasilar opacities. Pulmonary edema. No pneumothorax. Cardiomediastinal contours: Cardiomegaly. Bones: No acute osseous abnormality. IMPRESSION: Cardiomegaly with small bilateral pleural effusions. Pulmonary edema and bibasilar opacities.
[2025-07-21] MEDS ORDERED: potassium CL 10mEq/100ml bag 100 ML IV PRN (10:20)
[2025-07-21] MEDS ORDERED: potassium Cl 40MEQ/270ML bag 250 ML IV PRN (10:20)
[2025-07-21] MEDS: potassium Cl 20 mEq SR tablet PO SCH (10:35)
[2025-07-21 10:51] LABS: CREATININE 1.00 MG/DL (0.40-0.90); TOTAL CARBON DIOXIDE 27.2 MMOL/L (24-32); eCRCL 38 ML/MIN; eGFR 54 ML/MIN
[2025-07-21] MEDS: magnesium sulf-water 4G/100mL 100 ML IV PRN (11:08)
[2025-07-21] MEDS: potassium Cl 20mEq/100mL bag 100 ML IV PRN (11:09)
--- NOTE | 2025-07-21 11:57 | PROGRESS NOTE- Residence ---
Progress Note - Resident Providers to CC Resident Creating Document: NOEMI SUH, RES ~ Antibiotic Timeout Antibiotic Ordered?: No Subjective The patient was seen and examined at bedside today. She was transferred back to the ICU yesterday for respiratory distress and hypotension. She is on high-flow nasal cannula. Was started on Levophed last night. Still in AFib. Plan to cardiovert her if she continues to stay in AFib by this afternoon. Dr. High is on board. Objective Vital Signs Date Time Temp Pulse Resp B/P (MAP) Pulse Ox O2 Delivery O2 Flow Rate FiO2 07/21/25 11:00 85 18 High Flow Nasal Cannula 60.0 50 07/21/25 11:00 99.7 93/54 (66) 96 Result Diagram: 07/21/25 0230 07/21/25 1030 Elderly female, alert and oriented, in mild distress because of shortness of breath Head: Normocephalic with an atraumatic Eyes: Pupils- 3mm, reacting to light, conjunctiva- anicteric Nose and throat: No polyps, septum- normal, no mucosal ulcers Neck: Supple, no lymphadenopathy, no carotid bruit, right IJV line in place Respiratory: On HFNC, coarse breath sounds bilaterally, tender chest Cardiac: S1-S2 heard, rhythm irregular, no gallop/murmur Abdomen: non distended, no tenderness, no organomegaly, bowel sounds - heard Extremities: no clubbing, 1+ pedal edema, no deformities, peripheral pulses - 2+ Skin: warm and dry, no rash, no purpura Neuro: No focal deficit, gross cranial nerve exam - normal Coagulation Studies Laboratory Tests Test 07/21/25 02:30 Prothrombin Time 12.9 SECONDS (9.0-12.0) H INR International Normalized Ratio 1.3 INR Activated Partial Thromboplast Time 37 SECONDS (22-32) H Coagulation Comments Plan Plan Out of hospital cardiac arrest Hypotension secondary to above 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 High is on board. Patient started on Levophed for hypotension currently running at 0.01 mcg/kg/minute. Increased the Lasix to 40 mg q.6 H along with potassium 40 mEq q.6 H in addition to the protocol. Maintain potassium above four and magnesium above two. Close telemetry monitoring. Atrial fibrillation with RVR She continues to have AFib with RVR. Currently on amiodarone running at 0.5 mg/minute. She received two doses of digoxin - 500 mcg and 250 mcg. Plan to cardiovert her if she continues to stay in AFib by this afternoon. Maintain potassium above four and magnesium above two. Eliquis for anticoagulation. Continue telemetry monitoring. Acute hypoxemic respiratory failure Likely secondary to CHFpEF exacerbation Continue high-flow nasal cannula. Switch back to BiPAP if necessary. Continue diuresis. CAD status post PTCA PTCA to the proximal and distal LAD in 2002 Follows quiller runner in [place]; Dr. Garland Continue atorvastatin 80 mg and aspirin 81 mg daily. Acute on chronic kidney injury, resolved Continue to monitor kidney functions. Strict I&Os. Lines: Right IJV line DVT prophylaxis: Eliquis Gi prophylaxis: Protonix Diet: Heart healthy Code status: Full code; POA sister Brielle Disposition: The patient is currently in the ICU under the care of cloth winding supervisor. We will assume care of the patient once she is downgraded to the floors. Noemi Suh MD Internal Medicine Resident, PGY-2 The patient was seen, examined and discussed with the attending physician, Dr. Garza. Date of Service: Jul 21, 2025 Billing Provider: DYLAN GARZA MD Common Visit Codes: [id number] INP/OBS CARE(MOD) NOEMI SUH, RES Jul 21, 2025 11:57 DYLAN GARZA MD Jul 21, 2025 18:41
[2025-07-21] MEDS: midazolam 1 mg/ML 2ml injection ONE (12:16)
[2025-07-21] MEDS: fentaNYL/PF 50MCG/1 ML 2ML syringe ONE (12:16)
[2025-07-21] MEDS: fentaNYL/PF 50MCG/1 ML 2ML syringe IV ONE (12:35)
[2025-07-21] MEDS: midazolam 1 mg/ML 2ml injection IV ONE (12:36)
--- NOTE | 2025-07-21 13:50 | PROGRESS NOTE- Residence ---
Progress Note - Resident Providers to CC Resident Creating Document: RALPH SLATER RES ~ Antibiotic Timeout Antibiotic Ordered?: No Subjective Patient was evaluated at bedside in the ICU. She remains in atrial fibrillation with RVR despite receiving digoxin, amiodarone drip, and rate control measures. She is hemodynamically unstable, with persistent low blood pressure requiring vasopressor support. Due to refractory RVR and instability, the patient was successfully cardioverted today. Objective Vital Signs Date Time Temp Pulse Resp B/P (MAP) Pulse Ox O2 Delivery O2 Flow Rate FiO2 07/21/25 13:31 73 18 96 60.0 55 07/21/25 13:00 99.5 96/54 (68) High Flow Nasal Cannula General: Awake and Alert, BiPAP Resp: Bilateral wheezing Heart: Sinus rhythm after cardioversion Abdomen: Soft and non tender no organomegaly Extremities: 2+ pedal edema Skin: Warm and Dry. Result Diagram: 07/21/25 0230 07/21/25 1030 Coagulation Studies Laboratory Tests Test 07/21/25 02:30 Prothrombin Time 12.9 SECONDS (9.0-12.0) H INR International Normalized Ratio 1.3 INR Activated Partial Thromboplast Time 37 SECONDS (22-32) H Coagulation Comments Advance Care Planning Advanced Care plannin - 30 Minutes Assessment Assessment Assessment and plan: 80-year-old female with third-degree AV block, status post dual-chamber pacemaker placement on July 14 2025, now presenting with the acute hypoxia in the atrial fibrillation with RVR. Third-degree AV block with asystole Status post dual-chamber pacemaker 07/18/2025. Device functioning appropriately. 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 Continue Eliquis 5 mg twice daily Cardioverted today, sinus rhythm Acute hypoxemic respiratory failure Acute CHFpEF exacerbation CXR shows pulmonary vascular congestion with 2+ pedal edema Received 1 L IV fluid bolus or night + 100 mL/hour maintenance. Discontinued BiPAP initiated for hypoxemic respiratory failure Monitor respiratory status closely Diuresis with Lasix 20 mg IV daily Reassess ABG, mental status, and oxygenation frequently Coronary artery disease, status post proximal distal LAD stent Continuous with a rate 1 mg p.o. daily Hypertension Hyperlipidemia Counseled on coronary risk factor modifications Attestation: Patient seen and examined in ICU with Dr. Janel AGUIRRE. Despite receiving digoxin, and on amiodarone drip, she is hemodynamically unstable, with persistent low blood pressure requiring vasopressor support. Due to refractory RVR and instability, the patient was successfully cardioverted today. Ralph Slater Internal Medicine Resident, PGY-3 (Cardiology) Patient seen and examined by Dr. Janel AGUIRRE. Subsequently underwent planned electrical cardioversion. Converted to normal sinus rhythm. We will gradually transitioned to p.o. amiodarone and carvedilol when able to tolerate Date of Service: Jul 21, 2025 Billing Provider: MACI MOLINA MD, SHAMS, RES Jul 21, 2025 13:50 MACI MOLINA MD Jul 21, 2025 17:30
--- NOTE | 2025-07-21 16:12 | PROGRESS NOTE- Residence ---
Progress Note - Resident Providers to CC Resident Creating Document: DILMA DUARTE RES ~ Antibiotic Timeout Antibiotic Ordered?: No Subjective Patient seen and examined today. Got electrically cardioverted today by Dr. High. Remains in sinus rhythm. Levophed requirement coming down-now at 0.1 mcg/kg/minute. Mentioned that she feels better than earlier. Requiring high-flow with 60 L and intermittent BiPAP Objective Vital Signs Date Time Temp Pulse Resp B/P (MAP) Pulse Ox O2 Delivery O2 Flow Rate FiO2 07/21/25 16:03 92/46 07/21/25 16:00 99.0 76 18 97 High Flow Nasal Cannula 60.0 50 Result Diagram: 07/21/25 0230 07/21/25 1030 General: Alert and oriented x 4. In mild distress due to shortness of breaths HEENT: Normocephalic and atraumatic. Pupils equal round and reactive to light and accommodation. Extraocular movements intact. Oral and nasal mucosa moist Neck: Trachea is in midline. No masses or JVD. Right IJ in place Lungs: Bilateral mildly decreased breath sounds. Bilateral crackles present. No rhonchi or wheezes Heart: Regular rate and rhythm. S1-S2 normal. No rubs or murmurs Abdomen: Soft, nontender and nondistended. 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 High on 07/18/2025. Hypotensive due to acute heart failure with preserved EF and requiring pressors. Management ICU Plan Plan 3rd degree AV block with asystole S/p dual-chamber pacemaker placement on 07/18/2025 AFib with RVR-resolved - s/p electrical cardioversion today Continues to be on amiodarone drip On Coreg 3.125 mg p.o. b.i.d. per Cardiology but not receiving due to low hypotension - receiving one dose in 24 hours at a max Maintain potassium above four and magnesium above two. Continue Eliquis 5 mg p.o. b.i.d.. No longer on propofol now Received two doses of digoxin 500 mcg IV and 250 mcg IV on 07/20/2025 Acute hypoxemic respiratory failure/ARDS Acute heart failure with preserved ejection fraction exacerbation Possible cardiogenic shock Trending down Levophed requirement-now requiring 0.1 mcg/kg/minute PH in ABG on 07/20 close to normal but elevated PO2, low pCO2 and low bicarb- like a compensated metabolic acidosis Repeat ABG ordered On high-flow with 60 L with intermittent BiPAP Increased the Lasix to 40 mg IV q.6 H along with potassium 40 mEq p.o. q.6 H in addition to the protocol. Switch back to BiPAP if necessary. Negative fluid - 686 Strict I&Os Urinalysis showed moderate occult blood, 5-10 WBC, 1+ bacteria Preliminary urine culture and blood cultures negative CAD status post PTCA PTCA to the proximal and distal LAD in 2002 Follows anesthetist in [place]; Dr. Garland Continue atorvastatin 80 mg and aspirin 81 mg daily. Acute on chronic kidney stage III A Improving Continue diuresis for heart failure Normocytic normochromic anemia H&H stable Platelets improved to normal level # corrected calcium with albumin-within normal limits Lines: Right IJV line DVT prophylaxis: Eliquis Gi prophylaxis: Protonix Diet: Heart healthy and sodium restricted diet Code status: Full code; POA sister Brielle Duarte MD Internal Medicine Resident, PGY 3 Date of Service: Jul 21, 2025 Billing Provider: JANAY FELTON MD, MANOJNA RES Jul 21, 2025 16:12 JANAY FELTON MD Jul 25, 2025 11:55
[2025-07-21 16:55] LABS: ABG BASE EXCESS 0.1 mmol/L (-2.0-3.0); ABG HCO3 23.8 mmol/L (21.0-28.0); ABG OXYGEN SATURATION 92.5 % (94.0-98.0); ABG PCO2 (T) 35.6 mmHg (32.0-45.0); ABG PH (T) 7.445 (7.350-7.450); ABG PO2 (T) 62.0 mmHg (83.0-108.0); ALLEN'S TEST POSITIVE; FCOHb 0.8 % (0.5-1.5); FHHb 7.4 % (0.0-5.0); FIO2 40.0 mmHg/%; FLOW 60 L/min; FMetHb 0.3 % (0.0-1.5); FO2Hb 91.5 % (94.0-98.0); MODE HIGH FLOW; PATIENT TEMPERATURE 37.3; TOTAL HEMOGLOBIN 10.3 G/dl (12.0-16.0)
[2025-07-21] MEDS: HYDROcodone/acetaminophen 5mg/325mg tablet PO PRN (20:13)
--- NOTE | 2025-07-21 22:17 | PROGRESS NOTE ---
Progress Note Dictate Providers to CC ~HYPOXIC RESPIRATORY FAILURE Central Line/PICC still needed: N\A [place] Indications Met/Not Met: F/C Indications Met Antibiotic Ordered?: N/A MRSA Education MRSA Education Provided to pt: N/A Objective Vitals Vital Signs Date Time Temp Pulse Resp B/P (MAP) Pulse Ox O2 Delivery O2 Flow Rate FiO2 07/21/25 20:13 35 07/21/25 20:08 82 07/21/25 19:37 Bi-pap 40 07/21/25 19:33 99 07/21/25 17:48 99.5 122/51 (74) 60.0 Lab Results: 07/21/25 0230 07/21/25 1030 Coagulation Studies Laboratory Tests Test 07/21/25 02:30 Prothrombin Time 12.9 SECONDS (9.0-12.0) H INR International Normalized Ratio 1.3 INR Activated Partial Thromboplast Time 37 SECONDS (22-32) H Coagulation Comments Counseling Services Smoking & Tobacco Cessation: N/A Advance Care Planning Advanced Care planning: N/A Problem\Assessment\Plan Additional Plan IMPRESSION/PLAN: 1. 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 b.i.d.. 2. Acute hypoxemic respiratory failure Acute heart failure with preserved ejection fraction exacerbation BiPAP 35%, 10/5 Lasix 40 q6h Urine and blood cx neg so far 3. CAD status post PTCA PTCA to the proximal and distal LAD in 2002 Continue atorvastatin 80 mg and aspirin 81 mg daily. 4. Acute on chronic kidney stage III A Lasix 5. Normocytic normochromic anemia H&H stable Lines: Right IJV line DVT prophylaxis: Eliquis Gi prophylaxis: Protonix Code status: Full code Patient seen and assessed with HIPAA compliant audio visual aid MD OLIVER Adamson SUCHITRA MD Jul 21, 2025 22:17
[2025-07-22] VITALS (43 sets, daily range): BP systolic 96–127; BP diastolic 48–67; PULSE 64–80; RESP 17–33; O2SAT 86–99
[2025-07-22 02:42] LABS: MEAN PLATELET VOLUME 8.5 FL (7.4-10.4); RED CELL DISTRIBUTION WIDTH 13.7 % (11.5-14.5)
[2025-07-22 02:59] LABS: APTT 35 SECONDS (22-32); INR 1.2 INR
[2025-07-22 03:07] LABS: CREATININE 1.04 MG/DL (0.40-0.90); PHOSPHORUS 1.8 MG/DL (2.3-4.5); TOTAL CARBON DIOXIDE 30.3 MMOL/L (24-32); eCRCL 37 ML/MIN; eGFR 51 ML/MIN
[2025-07-22] MEDS ORDERED: SODIUM PHOSPHATE IN D5W 260 ML IV PRN (06:55)
--- NOTE | 2025-07-22 08:40 | RADIOLOGY REPORT ---
CHEST RADIOGRAPH Indication: PULMONARY EDEMA Technique: Single frontal view of the chest was obtained Comparison: DI CHEST,SINGLE VIEW on DOS: 07/21/25, DI CHEST,SINGLE VIEW on DOS: 07/20/25, DI CHEST,SINGLE VIEW on DOS: 07/20/25, DI CHEST,SINGLE VIEW on DOS: 07/18/25, DI CHEST,SINGLE VIEW on DOS: 07/17/25, DI CHEST,SINGLE VIEW on DOS: 07/21/25 FINDINGS: Lines and Tubes: Cardiac pacemaker projects over left chest wall. Right internal jugular central venous catheter tip projects over the SVC. Lungs: Small bilateral pleural effusions. Bibasilar opacities. Pulmonary edema. No pneumothorax. Cardiomediastinal contours: Cardiomegaly. Bones: No acute osseous abnormality. IMPRESSION: Cardiomegaly with small bilateral pleural effusions. Pulmonary edema and bibasilar opacities.
[2025-07-22] MEDS: sodium phos 15mmol/D5 255mL 255 ML IV PRN (08:55)
--- NOTE | 2025-07-22 09:19 | PROGRESS NOTE- Residence ---
Progress Note - Resident Providers to CC Resident Creating Document: RALPH SLATER RES ~ Antibiotic Timeout Antibiotic Ordered?: No Subjective Patient seen and examined today. She has remained in sinus rhythm since cardioversion. Started on BiPAP last night, switching to high flow. Still requires minimal Levopohed (0.07 mcg/kg/m). Objective Vital Signs Date Time Temp Pulse Resp B/P (MAP) Pulse Ox O2 Delivery O2 Flow Rate FiO2 07/22/25 09:00 100.0 72 33 119/63 (81) 98 Bi-pap/CPAP 35 07/21/25 19:00 60.0 General: Awake and Alert, BiPAP Resp: Bilateral wheezing Heart: Sinus rhythm after cardioversion Abdomen: Soft and non tender no organomegaly Extremities: 2+ pedal edema Skin: Warm and Dry. Result Diagram: 07/22/2522407/22/25224 Coagulation Studies Laboratory Tests Test 07/22/25 02:25 Prothrombin Time 12.5 SECONDS (9.0-12.0) H INR International Normalized Ratio 1.2 INR Activated Partial Thromboplast Time 35 SECONDS (22-32) H Coagulation Comments Advance Care Planning Advanced Care plannin - 30 Minutes Assessment Assessment 80-year-old female with third-degree AV block, status post dual-chamber pacemaker placement on July 14 2025, now presenting with the acute hypoxia in the atrial fibrillation with RVR. Electrical cardioversion yesterday, has remained in sinus rhythm. Plan Plan Third-degree AV block with asystole Status post dual-chamber pacemaker 07/18/2025. Device functioning appropriately. 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 Continue Eliquis 5 mg twice daily Cardioverted 07/22, has remained in sinus rhythm Acute hypoxemic respiratory failure Acute CHFpEF exacerbation CXR shows pulmonary vascular congestion with 2+ pedal edema Received 1 L IV fluid bolus or night + 100 mL/hour maintenance. Discontinued BiPAP initiated for hypoxemic respiratory failure Monitor respiratory status closely Continue diuresing well with Lasix 40 mg Q6H Strictly monitor JUAN JOSÉ's, Heart healthy diet Reassess ABG, mental status, and oxygenation frequently Coronary artery disease, status post proximal distal LAD stent Aggressive cardiovascular risk factor modification recommended, including: - Heart healthy diet: Low-fat, low-cholesterol, low-sodium - Maintain ideal body weight and engage in regular aerobic exercise as tolerated - Achieve lipid goal with LDL less than 70 mg/dL - Optimize blood pressure control - Adherence to guideline directed medical therapy Hypertension Hyperlipidemia Counseled on coronary risk factor modifications Attestation: Patient seen and examined in ICU with Dr. Janel AGUIRRE. Scheduled electrical cardioversion on 07/21. Has remained in sinus rhythm. Will be transitioned to p.o. amiodarone and carvedilol when able to tolerate Ralph Sltaer Internal Medicine Resident, PGY-3 (Cardiology) Patient seen and examined by Dr. SCHMIDT. Patient continues to be in sinus rhythm. Plans to transition IV amiodarone to p.o. amiodarone. Patient still on pressors. Once patient is off of Lopressor and stable blood pressure consider low-dose beta blockers Date of Service: Jul 22, 2025 Billing Provider: MACI MOLINA MD, SHAMS, RES Jul 22, 2025 09:19 MACI MOLINA MD Jul 22, 2025 17:24
--- NOTE | 2025-07-22 12:42 | PROGRESS NOTE- Residence ---
Progress Note - Resident Providers to CC Resident Creating Document: DILMA DUARTE RES ~ Antibiotic Timeout Antibiotic Ordered?: No Subjective Patient seen and examined today. Remains in sinus rhythm with regular rate. On BiPAP at night. Stated that she does not feel much change. T-max in the last 24 hours-100.8 F. Levophed requirement went up Objective Vital Signs Date Time Temp Pulse Resp B/P (MAP) Pulse Ox O2 Delivery O2 Flow Rate FiO2 07/22/25 12:00 100.0 78 18 100/50 (67) 86 High Flow Nasal Cannula 40.0 30 Result Diagram: 07/22/2522407/22/25224 General: Alert and oriented x 4. In mild distress due to shortness of breaths HEENT: Normocephalic and atraumatic. Pupils equal round and reactive to light and accommodation. Extraocular movements intact. Oral and nasal mucosa moist Neck: Trachea is in midline. No masses or JVD. Right IJ in place Lungs: Bilateral mildly decreased breath sounds. Bilateral crackles present. No rhonchi or wheezes Heart: Regular rate and rhythm. S1-S2 normal. No rubs or murmurs Abdomen: Soft, nontender and nondistended. 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 High on 07/18/2025. Hypotensive due to acute heart failure with preserved EF and requiring pressors. Management in ICU Plan Plan 3rd degree AV block with asystole S/p dual-chamber pacemaker placement on 07/18/2025 AFib with RVR-resolved - s/p electrical cardioversion on 07/21/25 Continues to be on amiodarone drip On Coreg 3.125 mg p.o. b.i.d. per Cardiology but not receiving due to low hypotension - receiving one dose in 24 hours at a max Maintain potassium above four and magnesium above two. Continue Eliquis 5 mg p.o. b.i.d.. No longer on propofol now Received two doses of digoxin 500 mcg IV and 250 mcg IV on 07/20/2025 Management as per the geotechnical department manager Acute hypoxemic respiratory failure/ARDS Acute heart failure with preserved ejection fraction exacerbation Possible cardiogenic shock Suspected pneumonia due to elevated temperatures, neutrophilia but WBC normal and procalcitonin not elevated Sputum culture showed few Gram-positive cocci in pairs. Follow up with the final result Requiring Levophed-at 0.07 mcg/kg/minute Requiring BiPAP at night and high-flow at 40 L/minute Repeat ABG on 07/21 showed normal pH but low PO2 Continue Lasix 40 mg IV q.6 H along with potassium 40 mEq p.o. q.6 H in addition to the protocol. Good urine output. 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 Garland Continue atorvastatin 80 mg and aspirin 81 mg daily. Acute on chronic kidney stage III A Hypokalemia, hypophosphatemia Improving Continue diuresis for heart failure Replacing phosphorus as per protocol Continue potassium 40 mEq p.o. q.6 H in addition to the protocol. Normocytic normochromic anemia H&H stable Platelets improved to normal level # corrected calcium with albumin-within normal limits Lines: Right IJV line DVT prophylaxis: Eliquis Gi prophylaxis: Protonix Diet: Heart healthy and sodium restricted diet Code status: Full code; POA sister Brielle Disposition: Continue management in ICU Dilma Duarte MD Internal Medicine Resident, PGY 3 The patient was seen, examined and discussed with the attending physician, Dr. Yee. Case discussed prior to morning conference ,at morning conference and multidisciplinary rounds. Agree with above assessment and plan. CC Time 35 minutes Date of Service: Jul 22, 2025 Billing Provider: DILMA DUARTE RES, MANOJNA RES Jul 22, 2025 12:42 JANAY YEE MD Jul 25, 2025 11:56
[2025-07-22] MEDS: psyllium seed 5.8 gm packet (sugar-free) PO SCH (13:22)
--- NOTE | 2025-07-22 16:17 | PROGRESS NOTE- Residence ---
Progress Note - Resident Providers to CC Resident Creating Document: NOEMI SUH, RES ~ Antibiotic Timeout Antibiotic Ordered?: Yes Subjective Patient seen and examined today. She got cardioverted by cardiology yesterday for Afib. She is currently in sinus rhythm but still has some runs of Afib. Still on amiodarone maintainance drip and levophed. Urine output of almost 7000 ml in the last 24 hours. Elevated temperature last night. Objective Vital Signs Date Time Temp Pulse Resp B/P (MAP) Pulse Ox O2 Delivery O2 Flow Rate FiO2 07/22/25 15:00 99.1 73 20 114/61 (78) 92 High Flow Nasal Cannula 40.0 30 Result Diagram: 07/22/2522407/22/25224 Elderly female, alert and oriented, in mild distress because of shortness of breath Head: Normocephalic with an atraumatic Eyes: Pupils- 3mm, reacting to light, conjunctiva- anicteric Nose and throat: No polyps, septum- normal, no mucosal ulcers Neck: Supple, no lymphadenopathy, no carotid bruit, right IJV line in place Respiratory: On HFNC, bibasilar bilaterally, tender chest Cardiac: S1-S2 heard, rhythm irregular, no gallop/murmur Abdomen: non distended, no tenderness, no organomegaly, bowel sounds - heard Extremities: no clubbing, trace pedal edema, no deformities, peripheral pulses - 2+ Skin: warm and dry, no rash, no purpura Neuro: No focal deficit, gross cranial nerve exam - normal Coagulation Studies Laboratory Tests Test 07/22/25 02:25 Prothrombin Time 12.5 SECONDS (9.0-12.0) H INR International Normalized Ratio 1.2 INR Activated Partial Thromboplast Time 35 SECONDS (22-32) H Coagulation Comments Assessment Assessment The 80-year-old female was admitted for systolic, third-degree AV block and got a dual-chamber pacemaker placement done by Dr. High on 07/18/2025. Hypotensive due to acute heart failure with preserved EF and requiring pressors. She is currently being managed in the ICU. Plan Plan Out of hospital cardiac arrest Hypotension secondary to above 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 High is on board. Continue Levophed currently running at 0.07 mcg/kg/minute. Continue Lasix 40 mg q.6 H along with potassium 40 mEq q.6 H in addition to the protocol. Urine output of almost 7000 mL in the last 24 hours. Continue diuresis. Maintain potassium above four and magnesium above two. Close telemetry monitoring. Atrial fibrillation with RVR S/p electrical cardioversion, 07/21/2025 The patient is currently in sinus rhythm. She underwent electrical cardioversion by Dr. High yesterday. Still has few runs of AFib. Currently on amiodarone running at 0.5 mg/minute. Home propafenone discontinued. Maintain potassium above four and magnesium above two. Eliquis for anticoagulation. Continue telemetry monitoring. Acute hypoxemic respiratory failure Likely secondary to CHFpEF exacerbation Continue high-flow nasal cannula. Switch back to BiPAP if necessary. Continue diuresis. 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 Garland Continue atorvastatin 80 mg and aspirin 81 mg daily. Acute on chronic kidney injury, resolved Continue to monitor kidney functions. Strict I&Os. Lines: Right IJV line DVT prophylaxis: Eliquis Gi prophylaxis: Protonix Diet: Heart healthy Code status: Full code; POA sister Brielle Disposition: The patient is currently in the ICU under the care of palletizer operator. We will assume care of the patient once she is downgraded to the floors. Noemi Suh MD Internal Medicine Resident, PGY-2 The patient was seen, examined and discussed with the attending physician, Dr. Garza. Date of Service: Jul 22, 2025 Billing Provider: DYLAN GARZA MD Common Visit Codes: [id number] INP/OBS CARE(MOD) NOEMI SUH, RES Jul 22, 2025 16:17 DYLAN GARZA MD Jul 22, 2025 18:28
[2025-07-23] VITALS (39 sets, daily range): BP systolic 85–116; BP diastolic 35–72; PULSE 64–135; RESP 12–35; O2SAT 89–98
[2025-07-23 02:51] LABS: MEAN PLATELET VOLUME 7.8 FL (7.4-10.4); RED CELL DISTRIBUTION WIDTH 14.0 % (11.5-14.5)
[2025-07-23 02:59] LABS: INR 1.2 INR
[2025-07-23 03:01] LABS: CREATININE 0.98 MG/DL (0.40-0.90); PHOSPHORUS 3.2 MG/DL (2.3-4.5); TOTAL CARBON DIOXIDE 33.2 MMOL/L (24-32); eCRCL 39 ML/MIN; eGFR 55 ML/MIN
[2025-07-23 03:07] LABS: APTT 34 SECONDS (22-32)
[2025-07-23] MEDS: magnesium sulf-water 2g/50mL 50 ML IV PRN (04:32)
--- NOTE | 2025-07-23 09:07 | RADIOLOGY REPORT ---
EXAM: DI CHEST,SINGLE VIEW Indication: monitor changes Technique: Single frontal view of the chest was obtained Comparison: DI CHEST,SINGLE VIEW on DOS: 07/22/25, DI CHEST,SINGLE VIEW on DOS: 07/21/25, DI CHEST,SINGLE VIEW on DOS: 07/20/25, DI CHEST,SINGLE VIEW on DOS: 07/20/25, DI CHEST,SINGLE VIEW on DOS: 07/18/25 FINDINGS: Lines and Tubes: Cardiac pacemaker projects over left chest wall. Lungs: Small left pleural effusion and left basilar opacity. Pulmonary vascular congestion. No pneumothorax. Cardiomediastinal contours: Unremarkable Bones: No acute osseous abnormality. IMPRESSION: No significant change compared to prior exam.
--- NOTE | 2025-07-23 09:17 | PROGRESS NOTE- Residence ---
Progress Note - Resident Providers to CC Resident Creating Document: GABRIELE SLATER RES ~ Antibiotic Timeout Antibiotic Ordered?: No Subjective Patient seen and examined in CICU today. She reports thick phlegm coming up onto her throat. Mixed color, modest leukocytosis. She had been in sinus rhythm since cordioversion, however, back to A-fib this morning with CVR. She is on Lasix 40 mg Q6H and is diuresing well with a net negative of >4 L the day before and > 2 L yesterday. Her HCO3 is elevated (>33), consistent with contractio alkalosis in the setting of aggessive diuresis. Objective Vital Signs Date Time Temp Pulse Resp B/P (MAP) Pulse Ox O2 Delivery O2 Flow Rate FiO2 07/23/25 08:57 15 07/23/25 07:23 66 Bi-pap 40 07/23/25 07:22 92 40 07/23/25 06:00 95/56 (69) 07/23/25 05:00 99.1 General: Awake and Alert, BiPAP Resp: Bilateral wheezing Heart: Sinus rhythm after cardioversion Abdomen: Soft and non tender no organomegaly Extremities: 2+ pedal edema Skin: Warm and Dry. Result Diagram: 07/23/25 0230 07/23/25 0230 Coagulation Studies Laboratory Tests Test 07/23/25 02:30 Prothrombin Time 12.4 SECONDS (9.0-12.0) H INR International Normalized Ratio 1.2 INR Activated Partial Thromboplast Time 34 SECONDS (22-32) H Coagulation Comments Advance Care Planning Advanced Care plannin - 30 Minutes Assessment Assessment 80-year-old female with third-degree AV block, status post dual-chamber pacemaker placement on July 14 2025, now presenting with the acute hypoxia in the atrial fibrillation with RVR. She had been in sinus rhythm since cordioversion, however, back to A-fib this morning with CVR. Plan Plan Third-degree AV block with asystole Status post dual-chamber pacemaker 07/18/2025. Device functioning appropriately. No evidence of lead malfunction Staple removal with her primary stone driller in one week Atrial fibrillation with RVR Heart rate in the 70's Propafenone discontinued Amiodarone 150 mg IV bolus given, followed by amiodarone drip Lopressor 5 mg IV given Continue close telemetry monitoring and upgrad to CICU if becomes hemodynamically unstable. Continue Eliquis 5 mg twice daily Cardioverted 07/22, has remained in sinus rhythm 07/23/25: She had been in sinus rhythm since cordioversion, however, back to A-fib this morning with CVR. She is on Lasix 40 mg Q6H and is diuresing well with a net negative of >4 L the day before and > 2 L yesterday. Her HCO3 is elevated (>33), consistent with contraction alkalosis in the setting of aggessive diuresis. Acute hypoxemic respiratory failure Acute CHFpEF exacerbation CXR shows pulmonary vascular congestion with 2+ pedal edema Received 1 L IV fluid bolus or night + 100 mL/hour maintenance. Discontinued BiPAP initiated for hypoxemic respiratory failure Monitor respiratory status closely Continue diuresing well with Lasix 40 mg Q6H Strictly monitor JUAN JOSÉ's, Heart healthy diet 07/23/25: She is on Lasix 40 Q6H and is diuresing well with a net negative of >4 L the day before and > 2 L yesterday. Her HCO3 is elevated (>33), consistent with contractio alkalosis in the setting of aggessive diuresis. She continues to require low dose levophed. She had remained in sinus rhythm but has now converted back to A-fib with CVR. - Continue Amiodarone 200 mg po twice daily - Once patient is off of Lopressor and stable blood pressure consider low-dose beta blockers - Repeat proBNP Coronary artery disease, status post proximal distal LAD stent Aggressive cardiovascular risk factor modification recommended, including: - Heart healthy diet: Low-fat, low-cholesterol, low-sodium - Maintain ideal body weight and engage in regular aerobic exercise as tolerated - Achieve lipid goal with LDL less than 70 mg/dL - Optimize blood pressure control - Adherence to guideline directed medical therapy Hypertension Hyperlipidemia Counseled on coronary risk factor modifications Attestation: Patient seen and examined in ICU with Dr. Janel Slaetr Internal Medicine Resident, PGY-3 (Cardiology) Patient seen and examined by Dr. Janel AGUIRRE. Discussed with booking supervisor team. Patient converted back to AFib with relatively controlled ventricular rhythm. Continue p.o. amiodarone. Date of Service: Jul 23, 2025 Billing Provider: MACI MOLINA MD, SHAMS, RES Jul 23, 2025 09:17 MACI MOLINA MD Jul 23, 2025 16:54
[2025-07-23] MEDS: midodrine tablet 2.5 MG TABLET PO SCH (14:00)
[2025-07-23] MEDS: midodrine 5mg tablet ONE (14:07)
--- NOTE | 2025-07-23 16:26 | RADIOLOGY REPORT ---
CTA Chest with intravenous contrast INDICATION: Chest pain. Rule out pulmonary embolus. COMPARISON: None TECHNIQUE: Multidetector spiral CTA of the chest was performed of the chest with intravenous contrast. PULMONARY ANGIOGRAPHY PROTOCOL was utilized using a bolus- tracking technique centered on the main pulmonary artery. Axial, coronal and sagittal multiplanar and MIP reformats were performed. Radiation Dose : 1. Chest: CTDI volume is 24.91 mGy. Dose-length product is 826.98 mGy*cm The dose indicators for CT are the volume Computed Tomography (CT) Dose Index (CTDIvol) and the Dose Length Product (DLP), and are measured in units of mGy and mGy-cm, respectively. These indicators are not patient dose, but values generated from the CT scanner acquisition factors. The report includes radiation exposure data for exposures received during this examination. Findings: Pulmonary artery: No pulmonary embolism Lower neck: Normal thyroid. Lungs: Mild diffuse interlobular septal thickening. Moderate passive atelectatic changes within both lower lobes. Heart/Vascular Structures: Multichamber cardiac enlargement. Left chest wall pacing device with lead tips in the right atrium and right ventricle. Coronary calcifications. Lymph Nodes: No adenopathy Pleura: Small bilateral pleural effusions. Musculoskeletal: Fractures of the right anterior 1st through 7th ribs and left anterior 2nd through 7th ribs. A few of the fractures are mildly displaced. For example, the right anterior 2nd through 5th fractures. Soft tissues: Normal. Upper abdomen: Limited portions of the upper abdomen are unremarkable. IMPRESSION: No pulmonary embolus. Cardiomegaly with bilateral effusions and mild pulmonary edema. Multiple bilateral anterior rib fractures.
--- NOTE | 2025-07-23 18:20 | PROGRESS NOTE- Residence ---
Progress Note - Resident Providers to CC Resident Creating Document: NOEMI SUH, RES ~ Antibiotic Timeout Antibiotic Ordered?: No Subjective The patient was seen and examined at bedside today. She does not have any new complaints. Continuing aggressive diuresis. Continues to be on Levophed. Objective Vital Signs Date Time Temp Pulse Resp B/P (MAP) Pulse Ox O2 Delivery O2 Flow Rate FiO2 07/23/25 18:00 100.4 117 17 104/65 (78) 95 High Flow Nasal Cannula 40.0 65 Result Diagram: 07/23/25 0230 07/23/25 0230 Elderly female, alert and oriented, in no acute distress Head: Normocephalic with an atraumatic Eyes: Pupils- 3mm, reacting to light, conjunctiva- anicteric Nose and throat: No polyps, septum- normal, no mucosal ulcers Neck: Supple, no lymphadenopathy, no carotid bruit, right IJV line in place Respiratory: On HFNC, bibasilar bilaterally, tender chest Cardiac: S1-S2 heard, rhythm irregular, no gallop/murmur Abdomen: non distended, no tenderness, no organomegaly, bowel sounds - heard Extremities: no clubbing, no pedal edema, no deformities, peripheral pulses - 2+ Skin: warm and dry, no rash, no purpura Neuro: No focal deficit, gross cranial nerve exam - normal Coagulation Studies Laboratory Tests Test 07/23/25 02:30 Prothrombin Time 12.4 SECONDS (9.0-12.0) H INR International Normalized Ratio 1.2 INR Activated Partial Thromboplast Time 34 SECONDS (22-32) H Coagulation Comments Assessment Assessment The 80-year-old female was admitted for systolic, third-degree AV block and got a dual-chamber pacemaker placement done by Dr. High on 07/18/2025. Hypotensive due to acute heart failure with preserved EF and requiring pressors. She is currently being managed in the ICU. Plan Plan Out of hospital cardiac arrest Hypotension secondary to above 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 High is on board. Continue Levophed currently running at 0.09 mcg/kg/minute. Started on midodrine 10 mg TID. Decreased Lasix to 20 mg q.6 H along with potassium 40 mEq q.6 H in addition to the protocol. Urine output of almost 5500 mL in the last 24 hours. Continue diuresis. Maintain potassium above four and magnesium above two. Close telemetry monitoring. Atrial fibrillation with RVR S/p electrical cardioversion, 07/21/2025 The patient reverted back to AFib this morning. Amiodarone drip stopped and she is currently on p.o. amiodarone 200 mg b.i.d. Home propafenone discontinued. Maintain potassium above four and magnesium above two. Eliquis for anticoagulation. Continue telemetry monitoring. Acute hypoxemic respiratory failure Likely secondary to CHFpEF exacerbation Continue high-flow nasal cannula. Switch back to BiPAP if necessary. Continue diuresis. 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 Garland Continue atorvastatin 80 mg and aspirin 81 mg daily. Acute on chronic kidney injury, resolved Continue to monitor kidney functions. Strict I&Os. Lines: Right IJV line DVT prophylaxis: Eliquis Gi prophylaxis: Protonix Diet: Heart healthy Code status: Full code; POA sister Brielle Disposition: The patient is currently in the ICU under the care of chief of safety and protection. We will assume care of the patient once she is downgraded to the floors. Noemi Suh MD Internal Medicine Resident, PGY-2 The patient was seen, examined and discussed with the attending physician, Dr. Garza. Date of Service: Jul 23, 2025 Billing Provider: DYLAN GARZA MD Common Visit Codes: [id number] INP/OBS CARE(MOD) NOEMI SUH, RES Jul 23, 2025 18:20 DYLAN GARZA MD Jul 23, 2025 19:24
--- NOTE | 2025-07-23 18:58 | PROGRESS NOTE- Residence ---
Progress Note - Resident Providers to CC Resident Creating Document: DILMA DUARTE RES ~ Antibiotic Timeout Antibiotic Ordered?: No Subjective Patient seen and examined today. Continues to require 40 L O2 via high-flow nasal cannula. No significant improvement. T-max 100.8 in the last 24 hours Objective Vital Signs Date Time Temp Pulse Resp B/P (MAP) Pulse Ox O2 Delivery O2 Flow Rate FiO2 07/23/25 18:00 100.4 117 17 104/65 (78) 95 High Flow Nasal Cannula 40.0 65 Result Diagram: 07/23/25 0230 07/23/25 0230 General: Alert and oriented x 4. In mild distress due to shortness of breaths HEENT: Normocephalic and atraumatic. Pupils equal round and reactive to light and accommodation. Extraocular movements intact. Oral and nasal mucosa moist Neck: Trachea is in midline. No masses or JVD. Right IJ in place Lungs: Bilateral mildly decreased breath sounds. Bilateral crackles present. No rhonchi or wheezes Heart: Irregular rhythm. Controlled rate. S1-S2 normal. No rubs or murmurs Abdomen: Soft, nontender and nondistended. Bowel sounds present [employer] [place] [employer]: No gross sensory or motor abnormalities Extremities: No cyanosis, clubbing or edema Skin: Warm and dry Coagulation Studies Laboratory Tests Test 07/23/25 02:30 Prothrombin Time 12.4 SECONDS (9.0-12.0) H INR International Normalized Ratio 1.2 INR Activated Partial Thromboplast Time 34 SECONDS (22-32) H Coagulation Comments Assessment Assessment The 80-year-old female was admitted for systolic, third-degree AV block and got a dual-chamber pacemaker placement done by Dr. High on 07/18/2025. Hypotensive due to acute heart failure with preserved EF and requiring pressors. She is currently being managed in the ICU. Plan Plan 3rd degree AV block with asystole S/p dual-chamber pacemaker placement on 07/18/2025 AFib with RVR-resolved - s/p electrical cardioversion on 07/21/25 Back to AFib this morning but with a controlled ventricular rate Amiodarone drip changed to p.o. amiodarone On Coreg 3.125 mg p.o. b.i.d. per Cardiology but not receiving due to low hypotension - receiving one dose in 24 hours at a max Maintain potassium above four and magnesium above two. Continue Eliquis 5 mg p.o. b.i.d.. No longer on propofol now Still requiring Levophed and started midodrine 10 mg p.o. q.8h Received two doses of digoxin 500 mcg IV and 250 mcg IV on 07/20/2025 Management as per the leather stretcher Acute hypoxemic respiratory failure Acute heart failure with preserved ejection fraction exacerbation Possible cardiogenic shock Suspected pneumonia due to elevated temperatures, neutrophilia but WBC normal and procalcitonin not elevated Sputum culture showed few Gram-positive cocci in pairs. Follow up with the final result Requiring Levophed-at 0.07 mcg/kg/minute Requiring BiPAP at night and high-flow at 40 L/minute Repeat ABG on 07/21 showed normal pH but low PO2 Decreased Lasix to 20 mg IV q.6h Continue potassium 40 mEq p.o. q.6 H in addition to the protocol. Good urine output. Negative 4122 mL in the last 24 hours Strict I&Os Urinalysis showed moderate occult blood, 5-10 WBC, 1+ bacteria Preliminary urine culture and blood cultures negative Chest CTA negative for PE. Cardiomegaly with bilateral pleural effusion-worse on the right and mild pulmonary edema. Multiple anterior rib fractures. 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 Garland Continue atorvastatin 80 mg and aspirin 81 mg daily. Acute on chronic kidney stage III A Hypokalemia, hypophosphatemia Improving Continue diuresis for heart failure Replacing phosphorus as per protocol Continue potassium 40 mEq p.o. q.6 H in addition to the protocol. Normocytic normochromic anemia H&H stable Platelets improved to normal level # corrected calcium with albumin-within normal limits Lines: Right IJV line DVT prophylaxis: Eliquis Gi prophylaxis: Protonix Diet: Heart healthy and sodium restricted diet Code status: Full code; POA sister Brielle Disposition: Continue management in ICU Dilma Duarte MD Internal Medicine Resident, PGY 3 The patient was seen, examined and discussed with the attending physician, Dr. Yee. Case discussed prior to morning conference ,at morning conference and multidisciplinary rounds. Agree with above assessment and plan. CC Time 35 minutes Date of Service: Jul 23, 2025 Billing Provider: JANAY YEE MD [facility] Jul 23, 2025 18:57 JANAY YEE MD Jul 25, 2025 11:57
[2025-07-24] VITALS (40 sets, daily range): BP systolic 81–121; BP diastolic 46–76; PULSE 81–130; RESP 11–32; O2SAT 87–97
[2025-07-24 03:06] LABS: MEAN PLATELET VOLUME 8.0 FL (7.4-10.4); RED CELL DISTRIBUTION WIDTH 13.7 % (11.5-14.5)
[2025-07-24 03:15] LABS: APTT 35 SECONDS (22-32); INR 1.3 INR
[2025-07-24 03:19] LABS: CREATININE 1.06 MG/DL (0.40-0.90); PHOSPHORUS 3.8 MG/DL (2.3-4.5); TOTAL CARBON DIOXIDE 34.3 MMOL/L (24-32); eCRCL 36 ML/MIN; eGFR 50 ML/MIN
[2025-07-24] MEDS: potassium Cl 20 mEq SR tablet PO SCH (08:13)
--- NOTE | 2025-07-24 09:02 | PROGRESS NOTE- Residence ---
Progress Note - Resident Providers to CC Resident Creating Document: RALPH SLATER RES ~ Antibiotic Timeout Antibiotic Ordered?: Yes Subjective Patient seen and examined in CICU today. Continues to require 50 L O2 via high- flow nasal cannula. Still in A-fib with controlled heart rate. Off pressors, BP soft. Diuresing well with a net negative of >2 L yesterday and >3 L today. Lasix decreased to 20 mg Q6H. She had a spike of early in the morning. She still reports thick phlegm coming up onto her throat. Mixed color with leukocytosis. CT chest shows left lower lobe consolidation/pleural effusion. Started on Zosyn. Objective Vital Signs Date Time Temp Pulse Resp B/P (MAP) Pulse Ox O2 Delivery O2 Flow Rate FiO2 07/24/25 08:28 19 07/24/25 08:00 99.9 117 82/64 (70) 97 High Flow Nasal Cannula 50.0 55 General: Awake and Alert, High flow oxygen Resp: air entry LLL reduced. Heart: Sinus rhythm after cardioversion Abdomen: Soft and non tender no organomegaly Extremities: 1+ pedal edema Skin: Warm and Dry. Result Diagram: 07/24/25 0200 07/24/25 0200 Coagulation Studies Laboratory Tests Test 07/24/25 02:00 Prothrombin Time 12.8 SECONDS (9.0-12.0) H INR International Normalized Ratio 1.3 INR Activated Partial Thromboplast Time 35 SECONDS (22-32) H Coagulation Comments Advance Care Planning Advanced Care plannin - 30 Minutes Assessment Assessment 80-year-old female with third-degree AV block, status post dual-chamber pacemaker placement on July 14 2025, now presenting with the acute hypoxia in the atrial fibrillation with RVR. She had been in sinus rhythm since cordioversion, however, back to A-fib yesterday morning with CVR. Plan Plan Third-degree AV block with asystole Status post dual-chamber pacemaker 07/18/2025. Device functioning appropriately. No evidence of lead malfunction Staple removal with her primary machine sewer in one week Atrial fibrillation with RVR Heart rate in the 90's Propafenone discontinued Amiodarone 150 mg IV bolus given, followed by amiodarone drip Lopressor 5 mg IV given Continue close telemetry monitoring and upgrad to CICU if becomes hemodynamically unstable. Continue Eliquis 5 mg twice daily Cardioverted 07/22, has remained in sinus rhythm 07/23/25: She had been in sinus rhythm since cordioversion, however, back to A-fib this morning with CVR. Digoxin 05 mcg now, 0.25 mcg after six hours, and 0.125 mg once daily, starting tomorrow. She is on Lasix 40 mg Q6H and is diuresing well with a net negative of >4 L the day before and > 2 L yesterday. Her HCO3 is elevated (>33), consistent with contraction alkalosis in the setting of aggessive diuresis. 07/24/25: She continues to require 50 L O2 via high-flow nasal cannula. Still in A-fib with controlled heart rate. Off pressors, BP soft. She had a spike of fever early in the morning. She still reports thick phlegm coming up onto her throat. Mixed color with leukocytosis. CT chest shows left lower lobe consolidation/pleural effusion. Started on Zosyn. Acute hypoxemic respiratory failure Acute CHFpEF exacerbation CXR shows pulmonary vascular congestion with 2+ pedal edema Received 1 L IV fluid bolus or night + 100 mL/hour maintenance. Discontinued BiPAP initiated for hypoxemic respiratory failure Monitor respiratory status closely Continue diuresing well with Lasix 40 mg Q6H Strictly monitor JUAN JOSÉ's, Heart healthy diet 07/23/25: She is on Lasix 40 Q6H and is diuresing well with a net negative of >4 L the day before and > 2 L yesterday. Her HCO3 is elevated (>33), consistent with contractio alkalosis in the setting of aggessive diuresis. She continues to require low dose levophed. She had remained in sinus rhythm but has now converted back to A-fib with CVR. - Continue Amiodarone 200 mg po twice daily - Once patient is off of Lopressor and stable blood pressure consider low-dose beta blockers - Repeat proBNP 07/24/25: ProBNP 3360. Diuresing well with a net negative of >2 L yesterday and >3 L today. Lasix decreased to 20 mg Q6H. Cr is okay. Coronary artery disease, status post proximal distal LAD stent Aggressive cardiovascular risk factor modification recommended, including: - Heart healthy diet: Low-fat, low-cholesterol, low-sodium - Maintain ideal body weight and engage in regular aerobic exercise as tolerated - Achieve lipid goal with LDL less than 70 mg/dL - Optimize blood pressure control - Adherence to guideline directed medical therapy Hypertension Hyperlipidemia Counseled on coronary risk factor modifications Patient seen and examined by Dr. Janel AGUIRRE. Discussed with industrial arts teacher team. Ralph Slater Internal Medicine Resident, PGY-3 (Cardiology) Patient seen and examined by Dr. Janel AGUIRRE. Short-term digoxin added for better control of atrial fibrillation. Patient on antibiotic for pulmonary infection. Date of Service: Jul 24, 2025 Billing Provider: MACI MOLINA MD, SHAMS, RES Jul 24, 2025 09:02 MACI MOLINA MD Jul 24, 2025 19:04
--- NOTE | 2025-07-24 09:13 | RADIOLOGY REPORT ---
EXAM: DI CHEST,SINGLE VIEW Indication: monitor changes Technique: Single frontal view of the chest was obtained Comparison: DI CHEST,SINGLE VIEW on DOS: 07/23/25, DI CHEST,SINGLE VIEW on DOS: 07/22/25, DI CHEST,SINGLE VIEW on DOS: 07/21/25, DI CHEST,SINGLE VIEW on DOS: 07/20/25, DI CHEST,SINGLE VIEW on DOS: 07/20/25 FINDINGS: Lines and Tubes: Right central venous catheter tip projects over superior vena cava. Cardiac pacemaker projects over left chest wall. Lungs: Left retrocardiac opacity. Pleura: Trace bilateral pleural effusions. No pneumothorax. Cardiomediastinal contours: Cardiomegaly. Bones: No acute osseous abnormality. IMPRESSION: Cardiomegaly with left retrocardiac opacity and trace bilateral pleural effusions.
[2025-07-24] MEDS: piperacillin/tazo 4.5gm/100ml 100 ML IV SCH (11:10)
[2025-07-24 12:11] LABS: INFLUENZA TYPE A ANTIGEN RAPID NEGATIVE (Negative); INFLUENZA TYPE B ANTIGEN RAPID NEGATIVE (Negative)
--- NOTE | 2025-07-24 12:52 | PROGRESS NOTE- Residence ---
Progress Note - Resident Providers to CC Resident Creating Document: DILMA DUARTE RES ~ Antibiotic Timeout Antibiotic Ordered?: No Subjective Patient seen and examined today. She still requires about 52 L O2 via high-flow cannula. Mentioned that she is bringing up sputum has cough. Chest CT showed left lower lobe consolidative changes and so is started on Zosyn. In AFib and heart rate ranging between 90s to 110/minute with occasional increase to 130/minute. T-max at 100.8 degree F in the last 24 hours Objective Vital Signs Date Time Temp Pulse Resp B/P (MAP) Pulse Ox O2 Delivery O2 Flow Rate FiO2 07/24/25 11:48 104 18 High Flow Nasal Cannula 50.0 55 07/24/25 11:43 94 07/24/25 09:08 84/53 07/24/25 08:00 99.9 Result Diagram: 07/24/25 0200 07/24/25 0200 General: Alert and oriented x 4. In mild distress due to shortness of breaths HEENT: Normocephalic and atraumatic. Pupils equal round and reactive to light and accommodation. Extraocular movements intact. Oral and nasal mucosa moist Neck: Trachea is in midline. No masses or JVD. Right IJ in place Lungs: Bilateral mildly decreased breath sounds. Bilateral crackles present. No rhonchi or wheezes Heart: Irregular rhythm. Controlled rate. S1-S2 normal. No rubs or murmurs Abdomen: Soft, nontender and nondistended. Bowel sounds present DRY CAN TENDER: No gross sensory or motor abnormalities Extremities: No cyanosis, clubbing or edema Skin: Warm and dry Coagulation Studies Laboratory Tests Test 07/24/25 02:00 Prothrombin Time 12.8 SECONDS (9.0-12.0) H INR International Normalized Ratio 1.3 INR Activated Partial Thromboplast Time 35 SECONDS (22-32) H Coagulation Comments Assessment Assessment The 80-year-old female was admitted for systolic, third-degree AV block and got a dual-chamber pacemaker placement done by Dr. High on 07/18/2025. Hypotensive due to acute heart failure with preserved EF and requiring pressors. She is currently being managed in the ICU. Plan Plan 3rd degree AV block with asystole S/p dual-chamber pacemaker placement on 07/18/2025 AFib with RVR-resolved - s/p electrical cardioversion on 07/21/2025 On amiodarone 200 mg p.o. b.i.d. On Coreg 3.125 mg p.o. b.i.d. per Cardiology but not receiving due to low hypotension - receiving one dose in 24 hours at a max Maintain potassium above four and magnesium above two. Continue Eliquis 5 mg p.o. b.i.d.. No longer on propofol now Still requiring Levophed and on midodrine 10 mg p.o. q.8h Received two doses of digoxin 500 mcg IV and 250 mcg IV on 07/20/2025 Management as per the hourly associate Acute hypoxemic respiratory failure Acute heart failure with preserved ejection fraction exacerbation Possible cardiogenic shock Suspected pneumonia due to elevated temperatures, neutrophilia but WBC normal and procalcitonin not elevated Sputum culture showed few Gram-positive cocci in pairs. Follow up with the final result Chest CTA showed no pulmonary embolism, cardiomegaly with bilateral effusions and mild pulmonary edema, multiple bilateral anterior rib fractures, consolidative changes in left lower lobe, and T-max 100.8 F Started Zosyn 4.5 g IV q.8h Requiring Levophed-at 0.09mcg/kg/minute Requiring BiPAP at night and high-flow at 50 L/minute Repeat ABG on 07/21 showed normal pH but low PO2 Continue Lasix to 20 mg IV q.6h Potassium went up to 5.2. Decreased scheduled K-Dur Good urine output Strict I&Os Urinalysis showed moderate occult blood, 5-10 WBC, 1+ bacteria Preliminary urine culture and blood cultures negative CAD status post PTCA PTCA to the proximal and distal LAD in 2002 Follows hourly associate in [place]; Dr. Garland Continue atorvastatin 80 mg and aspirin 81 mg daily. Acute on chronic kidney stage III A Hypokalemia, hypophosphatemia Improving Continue diuresis for heart failure Replacing phosphorus as per protocol Normocytic normochromic anemia H&H stable Platelets improved to normal level # corrected calcium with albumin-within normal limits Lines: Right IJ line DVT prophylaxis: Eliquis Gi prophylaxis: Protonix Diet: Heart healthy and sodium restricted diet Code status: Full code; POA sister Brielle Disposition: Continue management in ICU Dilma Duarte MD Internal Medicine Resident, PGY 3 The patient was seen, examined and discussed with the attending physician, Dr. Yee. Case discussed prior to morning conference ,at morning conference and multidisciplinary rounds. Agree with above assessment and plan. CC Time 35 minutes Date of Service: Jul 24, 2025 Billing Provider[facility] Jul 24, 2025 12:52 JANAY YEE MD Jul 25, 2025 11:58
[2025-07-24] MEDS ORDERED: morphine 4 MG/ML inj SYRINge IV PRN (14:41)
[2025-07-24] MEDS: digoxin 250mcg/ml 2ml ampule IV SCH ×2 (15:16→19:20)
[2025-07-24] MEDS: midodrine 5mg tablet PO SCH (17:22)
--- NOTE | 2025-07-24 18:39 | PROGRESS NOTE ---
Daily Progress Note Providers to CC ~ Antibiotic Timeout Antibiotic Ordered?: Yes Subjective Patient is seen in presence of her sister and her friend today. Concerned about her lung secretions Objective Vital Signs Date Time Temp Pulse Resp B/P (MAP) Pulse Ox O2 Delivery O2 Flow Rate FiO2 07/24/25 18:00 100.6 108 21 92/68 (76) 96 High Flow Nasal Cannula 50.0 55 Result Diagram: 07/24/25 0200 07/24/25 0200 General-patient not in any acute distress, awake ill-appearing, obese, on high-flow oxygen HEENT-atraumatic normocephalic, neck supple without elevated JVD, no thyromegaly or carotid bruit. No lymphadenopathy bilaterally. Eyes-no icterus or pallor seen in eyes Chest-decreased breathing sounds to auscultation bilaterally, breathing nonlabored no tachypnea, no wheezing, Heart-S1-S2 normal, regular heart rate no murmur Abdomen bowel sounds positive on auscultation, soft nondistended nontender no guarding, no rigidity Neurology-grossly intact, nonfocal alert awake oriented Extremity- no pedal edema able to move all 4 extremities Psychiatry - patient is not confused or agitated cooperated during physical examination Coagulation Studies Laboratory Tests Test 07/24/25 02:00 Prothrombin Time 12.8 SECONDS (9.0-12.0) H INR International Normalized Ratio 1.3 INR Activated Partial Thromboplast Time 35 SECONDS (22-32) H Coagulation Comments Problem\Assessment\Plan This is a 80-year-old female patient with a 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 The patient was traveling from [facility] to [facility], and as she got out of a car she progressively became short of breath and collapsed to the ground. A bystander noticed and started doing chest compressions and called the EMS. On arrival of the EMS, the patient was found to be in asystole. She was coded for 4 minutes and received epinephrine during this time. She was stabilized and brought into the ER, she was awake, alert and oriented x4. However, she was bradycardic and hypotensive due to which ICU was consulted for admission. she is currently in PCU. Out of hospital cardiac arrest Asystole on the field Hypotension secondary to above EKG in the hospital reveals right bundle branch block, PACs and sinus bradycardia Heart rate and blood pressure stable Consulted Dr. Cobos and pacemaker was placed Close telemetry monitoring done on Levophed and midodrine 10 mg TID. on Lasix to 20 mg q.6 H along with potassium 40 mEq q.6 H in addition to the protocol. Atrial fibrillation: Currently in sinus rhythm Continue telemetry monitoring on Eliquis CAD status post PTCA: PTCA to the proximal and distal LAD in 2002 Follows therapeutic recreation assistant in [place]; Dr. Garland Continued statin Acute on chronic kidney injury: Continue to monitor renal function Lines: PIV DVT prophylaxis: Lovenox Gi prophylaxis: Protonix Diet: Heart healthy Code status: Full code; POA sister Brielle Patient's current condition is guarded we will continue to follow patient in CICU. Date of Service: Jul 24, 2025 Billing Provider: DYLAN CRONIN MD Common Visit Codes: [id number] INP/OBS CARE(MOD) DYLAN CRONIN MD Jul 24, 2025 18:39
[2025-07-25] VITALS (43 sets, daily range): BP systolic 86–130; BP diastolic 39–75; PULSE 71–96; RESP 13–26; O2SAT 93–99
[2025-07-25 02:08] LABS: MEAN PLATELET VOLUME 7.2 FL (7.4-10.4); RED CELL DISTRIBUTION WIDTH 13.8 % (11.5-14.5)
[2025-07-25 02:23] LABS: APTT 37 SECONDS (22-32); INR 1.3 INR
[2025-07-25 02:58] LABS: CREATININE 1.42 MG/DL (0.40-0.90); PHOSPHORUS 4.5 MG/DL (2.3-4.5); TOTAL CARBON DIOXIDE 34.5 MMOL/L (24-32); eCRCL 27 ML/MIN; eGFR 36 ML/MIN
[2025-07-25] MEDS: potassium Cl 20 mEq SR tablet PO PRN (03:06)
[2025-07-25] MEDS: digoxin 250mcg/ml 2ml ampule IV SCH (10:29)
--- NOTE | 2025-07-25 12:02 | PROGRESS NOTE ---
Subjective Subjective Patient seen and examined today. She is awake alert and conversant. She is in no apparent distress. Reason for visit: Pulmonary critical care follow-up Reviewed: Care Plan, H&P, Labs, Radiology Daily Progress Note Exam Vitals Vital Signs Date Time Temp Pulse Resp B/P (MAP) Pulse Ox O2 Delivery O2 Flow Rate FiO2 07/25/25 11:46 82 20 High Flow Nasal Cannula 45.0 50 07/25/25 11:45 98 07/25/25 11:00 98.8 97/56 (70) Result Diagram: 07/25/25 0145 07/25/25 0014 Exam General: Awake and Alert, complaining of chest pain HEENT: Conjunctiva pink, Sclera clear, Mucus Membranes moist. Resp: Unlabored. Bilateral rhonchi heard Heart: Bradycardia, normal S1 and S2 without murmur, rub or gallop. Abdomen: Soft and non tender no organomegaly. Bowel sounds present Extremities: No cyanosis,clubbing or edema. Right IO in place Skin: Warm and Dry. No rashes Results Coagulation Studies Laboratory Tests Test 07/25/25 01:45 Prothrombin Time 13.0 SECONDS (9.0-12.0) H INR International Normalized Ratio 1.3 INR Activated Partial Thromboplast Time 37 SECONDS (22-32) H Coagulation Comments VTE VTE Risk Score VTE Risk Score Reference Ranges: Score 0-1 = Low Risk (Aggressive mobilization; early ambulation; no VTE prophylaxis required) Score 2: Moderate Risk (Intermittent/Pneumatic Compression Device OR Lovenox/Heparin/Coumadin) Score 3-4: High Risk (Intermittent/Pneumatic Compression Device AND Lovenox/Heparin/Coumadin) Score > or = 5: Highest Risk (Intermittent/Pneumatic Compression Device AND Lovenox/Heparin/Coumadin) Assessment/Plan Assessment Cardiovascular system: Out of hospital cardiac arrest Hypotension secondary to above 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 High is on board. The patient has been brought back to the ICU today for close monitoring. Patient started on Levophed for hypotension. Continue Lasix 20 mg IV daily for diuresis. Close telemetry monitoring. Atrial fibrillation with RVR She continues to have AFib with RVR. Currently on amiodarone running at 1 mg/minute. Because of hypotension, she was started on digoxin by Cardiology. Discontinue metoprolol. Eliquis for anticoagulation. Continue telemetry monitoring. Acute hypoxemic respiratory failure Likely secondary to CHF exacerbation Continue BiPAP. CAD status post PTCA: PTCA to the proximal and distal LAD in 2002 Follows risk investigator in [place]; Dr. Garland Continue atorvastatin 80 mg and aspirin 81 mg daily. Acute on chronic kidney injury, resolved Continue to monitor kidney functions. Lines: Right IJV line DVT prophylaxis: Eliquis Gi prophylaxis: Protonix Diet: Heart healthy Code status: Full code; POA sister Brielle Franklin Tarv Villanueva MD Internal Medicine Resident, PGY-2 The patient was seen, examined and discussed with the attending physician, Dr. Yee. Case discussed prior to morning conference ,at morning conference and multidisciplinary rounds. Agree with above assessment and plan. 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 b.i.d. Discontinue 3.125 mg p.o. b.i.d. in light of hypotension. Maintain potassium above four and magnesium above two. Continue Eliquis 5 mg p.o. b.i.d.. No longer on propofol now Still requiring Levophed and on midodrine 10 mg p.o. q.8h Received two doses of digoxin 500 mcg IV and 250 mcg IV on 07/20/2025 Management as per the risk investigator Acute hypoxemic respiratory failure Acute heart failure with preserved ejection fraction exacerbation Possible cardiogenic shock Suspected pneumonia due to elevated temperatures, neutrophilia but WBC normal and procalcitonin not elevated Sputum culture showed few Gram-positive cocci in pairs. Follow up with the final result Chest CTA showed no pulmonary embolism, cardiomegaly with bilateral effusions and mild pulmonary edema, multiple bilateral anterior rib fractures, consolidative changes in left lower lobe, and T-max 100.8 F Started Zosyn 4.5 g IV q.8h Requiring Levophed-at 0.09mcg/kg/minute Requiring BiPAP at night and high-flow at 50 L/minute Repeat ABG on 07/21 showed normal pH but low PO2 Continue Lasix to 20 mg IV q.6h Potassium went up to 5.2. Decreased scheduled K-Dur Good urine output Strict I&Os Urinalysis showed moderate occult blood, 5-10 WBC, 1+ bacteria Preliminary urine culture and blood cultures negative CAD status post PTCA PTCA to the proximal and distal LAD in 2002 Follows risk investigator in [place]; Dr. Garland Continue atorvastatin 80 mg and aspirin 81 mg daily. Acute on chronic kidney stage III A Hypokalemia, hypophosphatemia Improving Continue diuresis for heart failure Replacing phosphorus as per protocol Normocytic normochromic anemia H&H stable Platelets improved to normal level # corrected calcium with albumin-within normal limits Lines: Right IJ line DVT prophylaxis: Eliquis Gi prophylaxis: Protonix Diet: Heart healthy and sodium restricted diet Code status: Full code; POA sister Brielle Disposition: Continue management in ICU Prognosis remains guarded Critical care time 35 minutes. Expected Outcome/Goals Expected Outcomes/Goals: Meet minimum 75% estimated protein and energy needs, ONS acceptance, wt maintenance, bowel regularity, skin integrity JANAY YEE MD Jul 25, 2025 12:02
[2025-07-25 12:05] LABS: PHOSPHORUS 4.2 MG/DL (2.3-4.5)
--- NOTE | 2025-07-25 17:15 | PROGRESS NOTE ---
Daily Progress Note Providers to CC ~ Antibiotic Timeout Antibiotic Ordered?: Yes Subjective Patient is seen in CICU communicating well. On high-flow oxygen and still on pressors. Management as per supervisory investigative specialist and coal feeder operator team. Objective Vital Signs Date Time Temp Pulse Resp B/P (MAP) Pulse Ox O2 Delivery O2 Flow Rate FiO2 07/25/25 17:02 99.1 78 25 124/50 (74) 94 High Flow Nasal Cannula 40.0 40 Result Diagram: 07/25/25 0145 07/25/25 1058 General-patient not in any acute distress, awake ill-appearing, obese, on high-flow oxygen HEENT-atraumatic normocephalic, neck supple without elevated JVD, no thyromegaly or carotid bruit. No lymphadenopathy bilaterally. Eyes-no icterus or pallor seen in eyes Chest- breathing sounds improved and more clear to auscultation bilaterally, breathing nonlabored no tachypnea, no wheezing, Heart-S1-S2 normal, regular heart rate no murmur Abdomen bowel sounds positive on auscultation, soft nondistended nontender no guarding, no rigidity Neurology-grossly intact, nonfocal alert awake oriented Extremity- no pedal edema able to move all 4 extremities Psychiatry - patient is not confused or agitated cooperated during physical examination Coagulation Studies Laboratory Tests Test 07/25/25 01:45 Prothrombin Time 13.0 SECONDS (9.0-12.0) H INR International Normalized Ratio 1.3 INR Activated Partial Thromboplast Time 37 SECONDS (22-32) H Coagulation Comments Problem\Assessment\Plan This is a 80-year-old female patient with a 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 The patient was traveling from [facility] to [facility], and as she got out of a car she progressively became short of breath and collapsed to the ground. A bystander noticed and started doing chest compressions and called the EMS. On arrival of the EMS, the patient was found to be in asystole. She was coded for 4 minutes and received epinephrine during this time. She was stabilized and brought into the ER, she was awake, alert and oriented x4. However, she was bradycardic and hypotensive due to which ICU was consulted for admission. she is currently in PCU. Out of hospital cardiac arrest Asystole on the field Hypotension secondary to above EKG in the hospital reveals right bundle branch block, PACs and sinus bradycardia Heart rate and blood pressure stable Consulted Dr. Cobos and pacemaker was placed Close telemetry monitoring done on Levophed and midodrine 10 mg TID. on Lasix to 20 mg q.6 H along with potassium 40 mEq q.6 H in addition to the protocol. Atrial fibrillation: Currently in sinus rhythm Continue telemetry monitoring on Eliquis CAD status post PTCA: PTCA to the proximal and distal LAD in 2002 Follows fundraiser in [place]; Dr. Garland Continued statin Acute on chronic kidney injury: Continue to monitor renal function Lines: PIV DVT prophylaxis: Lovenox Gi prophylaxis: Protonix Diet: Heart healthy Code status: Full code; POA sister Brielle Patient's current condition is guarded we will continue to follow patient in CICU. Date of Service: Jul 25, 2025 Billing Provider: DYLAN CRONIN MD Common Visit Codes: [id number] INP/OBS CARE(MOD) DYLAN CRONIN MD Jul 25, 2025 17:15
[2025-07-26] VITALS (38 sets, daily range): BP systolic 98–171; BP diastolic 39–90; PULSE 67–114; RESP 11–27; O2SAT 93–99
[2025-07-26 02:37] LABS: CREATININE 1.49 MG/DL (0.40-0.90); PHOSPHORUS 4.6 MG/DL (2.3-4.5); TOTAL CARBON DIOXIDE 36.7 MMOL/L (24-32); eCRCL 26 ML/MIN; eGFR 34 ML/MIN
[2025-07-26 02:46] LABS: MEAN PLATELET VOLUME 7.6 FL (7.4-10.4); RED CELL DISTRIBUTION WIDTH 13.9 % (11.5-14.5)
[2025-07-26 03:16] LABS: APTT 38 SECONDS (22-32); INR 1.3 INR
[2025-07-26] MEDS: magnesium hydroxide 30ml (MOM) UD suspension PO PRN (07:45)
[2025-07-26] MEDS: digoxin 125mcg (0.125mg) tablet PO SCH (07:47)
[2025-07-26] MEDS ORDERED: digoxin 250mcg/ml 2ml ampule IV SCH (08:00)
--- NOTE | 2025-07-26 10:57 | PROGRESS NOTE ---
Subjective Subjective Patient seen and examined today. She is awake alert and conversant. She is in no apparent distress. Reason for visit: Pulmonary critical care follow-up Reviewed: Care Plan, H&P, Labs, Radiology Review of Systems Changes from previous H/P or p: No Changes Daily Progress Note Exam Vitals Vital Signs Date Time Temp Pulse Resp B/P (MAP) Pulse Ox O2 Delivery O2 Flow Rate FiO2 07/26/25 10:09 14 07/26/25 10:00 98.4 72 98/39 (58) 95 High Flow Nasal Cannula 25.0 35 Result Diagram: 07/26/2514407/26/25144 Exam General: Awake and Alert, complaining of chest pain HEENT: Conjunctiva pink, Sclera clear, Mucus Membranes moist. Resp: Unlabored. Bilateral rhonchi heard Heart: AFib normal S1 and S2 without murmur, rub or gallop. Abdomen: Soft and non tender no organomegaly. Bowel sounds present Extremities: No cyanosis,clubbing or edema. Right IO in place Skin: Warm and Dry. No rashes Results Coagulation Studies Laboratory Tests Test 07/26/25 01:45 Prothrombin Time 12.6 SECONDS (9.0-12.0) H INR International Normalized Ratio 1.3 INR Activated Partial Thromboplast Time 38 SECONDS (22-32) H Coagulation Comments VTE VTE Risk Score VTE Risk Score Reference Ranges: Score 0-1 = Low Risk (Aggressive mobilization; early ambulation; no VTE prophylaxis required) Score 2: Moderate Risk (Intermittent/Pneumatic Compression Device OR Lovenox/Heparin/Coumadin) Score 3-4: High Risk (Intermittent/Pneumatic Compression Device AND Lovenox/Heparin/Coumadin) Score > or = 5: Highest Risk (Intermittent/Pneumatic Compression Device AND Lovenox/Heparin/Coumadin) Assessment/Plan Assessment Cardiovascular system: Out of hospital cardiac arrest Hypotension secondary to above 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 High is on board. The patient has been brought back to the ICU today for close monitoring. Patient started on Levophed for hypotension. Continue Lasix 20 mg IV daily for diuresis. Close telemetry monitoring. Atrial fibrillation with RVR She continues to have AFib with RVR. Currently on amiodarone running at 1 mg/minute. Because of hypotension, she was started on digoxin by Cardiology. Discontinue metoprolol. Eliquis for anticoagulation. Continue telemetry monitoring. Acute hypoxemic respiratory failure Likely secondary to CHF exacerbation Continue BiPAP. CAD status post PTCA: PTCA to the proximal and distal LAD in 2002 Follows plan examiner in [place]; Dr. Garland Continue atorvastatin 80 mg and aspirin 81 mg daily. Acute on chronic kidney injury, resolved Continue to monitor kidney functions. Lines: Right IJV line DVT prophylaxis: Eliquis Gi prophylaxis: Protonix Diet: Heart healthy Code status: Full code; POA sister Brielle Franklin Trav Villanueva MD Internal Medicine Resident, PGY-2 The patient was seen, examined and discussed with the attending physician, Dr. Yee. Case discussed prior to morning conference ,at morning conference and multidisciplinary rounds. Agree with above assessment and plan. 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 b.i.d. 3.125 mg p.o. b.i.d. discontinued in light of hypotension. Maintain potassium above four and magnesium above two. Continue Eliquis 5 mg p.o. b.i.d.. No longer on propofol now Still requiring Levophed and on midodrine 10 mg p.o. q.8h Received two doses of digoxin 500 mcg IV and 250 mcg IV on 07/20/2025 Management as per the plan examiner Acute hypoxemic respiratory failure Acute heart failure with preserved ejection fraction exacerbation Possible cardiogenic shock Suspected pneumonia due to elevated temperatures, neutrophilia but WBC normal and procalcitonin not elevated Sputum culture showed few Gram-positive cocci in pairs. Follow up with the final result Chest CTA showed no pulmonary embolism, cardiomegaly with bilateral effusions and mild pulmonary edema, multiple bilateral anterior rib fractures, consolidative changes in left lower lobe, and T-max 99.5 F Started Zosyn 4.5 g IV q.8h Requiring Levophed-at 0.04mcg/kg/minute Requiring BiPAP at night and high-flow at 50 L/minute Continue Lasix to 40 mg IV q.6h Potassium went up to 3.3. Increased scheduled potassium to 40 mEq p.o. q.6 again. Good urine output Strict I&Os Urinalysis showed moderate occult blood, 5-10 WBC, 1+ bacteria Preliminary urine culture and blood cultures negative CAD status post PTCA PTCA to the proximal and distal LAD in 2002 Follows plan examiner in [place]; Dr. Garland Continue atorvastatin 80 mg and aspirin 81 mg daily. Acute on chronic kidney stage III A Hypokalemia, hypophosphatemia Improving Continue diuresis for heart failure Replacing phosphorus as per protocol Normocytic normochromic anemia H&H stable Platelets improved to normal level # corrected calcium with albumin-within normal limits Lines: Right IJ line DVT prophylaxis: Eliquis Gi prophylaxis: Protonix Diet: Heart healthy and sodium restricted diet Code status: Full code; POA sister Brielle Disposition: Continue management in ICU Prognosis remains guarded Critical care time 35 minutes. Expected Outcome/Goals Expected Outcomes/Goals: Meet minimum 75% estimated protein and energy needs, ONS acceptance, wt maintenance, bowel regularity, skin integrity JANAY YEE MD Jul 26, 2025 10:57
--- NOTE | 2025-07-26 12:08 | PROCEDURE NOTE CC ---
Procedure Note Providers to CC ~ Planned Procedure Right radial artery A-line placement Indications Hypotension on Levophed. Post Operative Dx: Cardiogenic shock, acute CHF Outbound Supervisor Nakia Type of Anesthesia 1% lidocaine without epinephrine Informed Consent Yes Description The right wrist was prepped and draped in sterile fashion after locating the radial artery with ultrasound. The radial artery was cannulated with an 18 gauge needle after a few attempts and a guidewire was inserted into the radial artery. The a line was then inserted over the guidewire using Seldinger technique and secured to the skin with a suture. A dicrotic waveform was noted on the monitor confirming appropriate placement of the a line in the radial artery. Estimated Blood Loss Negligible Complication Non X-Ray Findings Not indicated JANAY FELTON MD Jul 26, 2025 12:08
[2025-07-26] MEDS: potassium Cl 20 mEq SR tablet PO SCH (14:27)
[2025-07-26] MEDS: midodrine 5mg tablet PO SCH (15:45)
--- NOTE | 2025-07-26 18:23 | PROGRESS NOTE ---
Daily Progress Note Providers to CC ~ Antibiotic Timeout Antibiotic Ordered?: Yes Subjective Patient is seen in CICU she is on Zosyn even though her blood cultures showed no growth after five days and urine culture showed no growth after two days. Sputum culture results in preliminary report does not show any organism. She is currently on 3 L of oxygen saturating 93%. Patient is still requiring pressor agents. On Norcos for pain control Objective Vital Signs Date Time Temp Pulse Resp B/P (MAP) Pulse Ox O2 Delivery O2 Flow Rate FiO2 07/26/25 17:52 98.8 94 16 102/45 (64) 93 Nasal Cannula 3.0 07/26/25 15:38 36 Result Diagram: 07/26/25 0145 07/26/25 0145 General-patient not in any acute distress, awake ill-appearing, obese, on 3 L nasal cannula HEENT-atraumatic normocephalic, neck supple without elevated JVD, no thyromegaly or carotid bruit. No lymphadenopathy bilaterally. Eyes-no icterus or pallor seen in eyes Chest- coarse breath sounds present to auscultation bilaterally, breathing nonlabored no tachypnea, no wheezing, Heart-S1-S2 normal, regular heart rate no murmur Abdomen bowel sounds positive on auscultation, soft nondistended nontender no guarding, no rigidity Neurology-grossly intact, nonfocal alert awake oriented Extremity- no pedal edema able to move all 4 extremities Psychiatry - patient is not confused or agitated cooperated during physical examination Coagulation Studies Laboratory Tests Test 07/26/25 01:45 Prothrombin Time 12.6 SECONDS (9.0-12.0) H INR International Normalized Ratio 1.3 INR Activated Partial Thromboplast Time 38 SECONDS (22-32) H Coagulation Comments Problem\Assessment\Plan This is a 80-year-old female patient with a past medical history of 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 The patient was traveling from [facility] to [facility], and as she got out of a car she progressively became short of breath and collapsed to the ground. A bystander noticed and started doing chest compressions and called the EMS. On arrival of the EMS, the patient was found to be in asystole. She was coded for 4 minutes and received epinephrine during this time. She was stabilized and brought into the ER, she was awake, alert and oriented x4. However, she was bradycardic and hypotensive due to which ICU was consulted for admission. Out of hospital cardiac arrest Asystole on the field Hypotension secondary to above EKG in the hospital reveals right bundle branch block, PACs and sinus bradycardia Heart rate and blood pressure stable Consulted Dr. Cobos and pacemaker was placed Close telemetry monitoring done on Levophed and midodrine 10 mg TID. on Lasix to 20 mg q.6 H along with potassium 40 mEq q.6 H in addition to the protocol. 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 Garland Continued statin Acute on chronic kidney injury: Continue to monitor renal function Lines: PIV DVT prophylaxis: Lovenox Gi prophylaxis: Protonix Diet: Heart healthy Code status: Full code; POA sister Brielle Patient's current condition is guarded we will continue to follow patient in CICU along with butcher helper team Date of Service: Jul 26, 2025 Billing Provider: DYLAN CRONIN MD Common Visit Codes: [id number] INP/OBS CARE(MOD) DYLAN CRONIN MD Jul 26, 2025 18:23
--- NOTE | 2025-07-26 21:06 | PROGRESS NOTE ---
Progress Note Dictate Providers to CC ~ Progress Note: 65 year old admitted after cardiac arrest with hypotension and bradycardia. Antibiotic Ordered?: Yes Objective Vitals Vital Signs Date Time Temp Pulse Resp B/P (MAP) Pulse Ox O2 Delivery O2 Flow Rate FiO2 07/26/25 20:41 20 07/26/25 19:47 85 Nasal Cannula 4.0 07/26/25 19:40 95 36 07/26/25 19:00 99.3 171/90 (117) Lab Results: 07/26/25 0145 07/26/25 014 Coagulation Studies Laboratory Tests Test 07/26/25 01:45 Prothrombin Time 12.6 SECONDS (9.0-12.0) H INR International Normalized Ratio 1.3 INR Activated Partial Thromboplast Time 38 SECONDS (22-32) H Coagulation Comments Problem\Assessment\Plan Additional Plan K repleted. on 3L NC and appears comfortable. Plan: continue po amiodarone lasix for diuresis on levophed for shock zosyn empirically CCT 51 min using HIPPA compliant A/V technology1 HELEN HILTON MD Jul 26, 2025 21:06
[2025-07-27] VITALS (33 sets, daily range): BP systolic 84–120; BP diastolic 38–66; PULSE 68–99; RESP 12–24; TEMP 97.1–97.8; O2SAT 93–100
[2025-07-27 02:42] LABS: MEAN PLATELET VOLUME 7.4 FL (7.4-10.4); RED CELL DISTRIBUTION WIDTH 13.7 % (11.5-14.5)
[2025-07-27 03:00] LABS: APTT 36 SECONDS (22-32); INR 1.3 INR
[2025-07-27 03:52] LABS: CREATININE 1.48 MG/DL (0.40-0.90); PHOSPHORUS 3.7 MG/DL (2.3-4.5); TOTAL CARBON DIOXIDE 35.6 MMOL/L (24-32); eCRCL 26 ML/MIN; eGFR 34 ML/MIN
[2025-07-27] MEDS: docusate sod 100mg capsule PO SCH (08:38)
--- NOTE | 2025-07-27 09:46 | PROGRESS NOTE- Residence ---
Progress Note - Resident Providers to CC Resident Creating Document: DILMA DUARTE RES ~ Antibiotic Timeout Antibiotic Ordered?: Yes Subjective Patient seen and examined today. She feels a lot better. Oxygen requirement significantly decreased. Remains in AFib with CVR. No elevated temperatures in the last 48 hours Objective Vital Signs Date Time Temp Pulse Resp B/P (MAP) Pulse Ox O2 Delivery O2 Flow Rate FiO2 07/27/25 09:00 99.0 82 17 97/51 (66) 95 Nasal Cannula 4.0 07/27/25 08:11 36 Result Diagram: 07/27/2520407/27/25204 General: Alert and oriented x 4. In mild distress due to shortness of breaths HEENT: Normocephalic and atraumatic. Pupils equal round and reactive to light and accommodation. Extraocular movements intact. Oral and nasal mucosa moist Neck: Trachea is in midline. No masses or JVD. Right IJ in place Lungs: Bilateral mildly decreased breath sounds. Bilateral mild crackles present. No rhonchi or wheezes Heart: Irregular rhythm. Controlled rate. S1-S2 normal. No rubs or murmurs Abdomen: Soft, nontender and nondistended. Bowel sounds present OLIVE PICKER: No gross sensory or motor abnormalities Extremities: No cyanosis, clubbing or edema Skin: Warm and dry Coagulation Studies Laboratory Tests Test 07/27/25 02:05 Prothrombin Time 12.9 SECONDS (9.0-12.0) H INR International Normalized Ratio 1.3 INR Activated Partial Thromboplast Time 36 SECONDS (22-32) H Coagulation Comments Assessment Assessment The 80-year-old female was admitted for systolic, third-degree AV block and got a dual-chamber pacemaker placement done by Dr. High on 07/18/2025. Hypotensive due to acute heart failure with preserved EF and requiring pressors. She is currently being managed in the ICU. 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 daily, amiodarone 200 mg p.o. b.i.d. One aspirin 81 mg p.o. daily and Eliquis 5 mg p.o. b.i.d. Off Levophed since yesterday On midodrine 20 mg p.o. q.8h Acute hypoxemic respiratory failure-improving Acute heart failure with preserved ejection fraction exacerbation Possible cardiogenic shock-resolved WBC went up. No elevated temperatures Requiring 4 L O2 via nasal cannula Continue Zosyn 4.5 g IV q.8h-day 4 Suspected pneumonia due to elevated temperatures, neutrophilia but WBC normal and procalcitonin not elevated Sputum culture showed few Gram-positive cocci in pairs. 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 Garland Continue atorvastatin 80 mg and aspirin 81 mg daily. Acute on chronic kidney stage III A Hyponatremia, Hypokalemia, hypophosphatemia Held diuresis for now Creatinine went up Replace electrolytes as per protocol Normocytic normochromic anemia H&H stable Platelets improved to normal level # corrected calcium with albumin-within normal limits Lines: Right IJ line DVT prophylaxis: Eliquis Gi prophylaxis: Protonix Diet: Heart healthy and sodium restricted diet Code status: Full code; POA sister Brielle Disposition: Transfer to PCU. Requires Lasix at the time of discharge. Remove right IJ line before transfer. Complete antibiotic course for a week to 10 days Dilma Duarte MD Internal Medicine Resident, PGY 3 Date of Service: Jul 27, 2025 Billing Provider: ALMA ROBERSON MD, MANOJNA RES Jul 27, 2025 09:46
--- NOTE | 2025-07-27 19:44 | PROGRESS NOTE ---
Daily Progress Note Providers to CC ~ Antibiotic Timeout Antibiotic Ordered?: Yes Subjective Patient was seen in presence of patient's sister in PCU today. Patient feels she has not pass the stools since couple of days treatment ordered for constipation Objective Vital Signs Date Time Temp Pulse Resp B/P (MAP) Pulse Ox O2 Delivery O2 Flow Rate FiO2 07/27/25 17:55 97.8 84 14 115/51 (72) 96 Nasal Cannula 3.0 07/27/25 15:08 36 Result Diagram: 07/27/25 0205 07/27/25 0205 General-patient not in any acute distress, awake ill-appearing, obese, on 3 L nasal cannula HEENT-atraumatic normocephalic, neck supple without elevated JVD, no thyromegaly or carotid bruit. No lymphadenopathy bilaterally. Eyes-no icterus or pallor seen in eyes Chest- coarse breath sounds present to auscultation bilaterally, breathing nonlabored no tachypnea, no wheezing, Heart-S1-S2 normal, regular heart rate no murmur Abdomen bowel sounds positive on auscultation, soft nondistended nontender no guarding, no rigidity Neurology-grossly intact, nonfocal alert awake oriented Extremity- no pedal edema able to move all 4 extremities Psychiatry - patient is not confused or agitated cooperated during physical examination Coagulation Studies Laboratory Tests Test 07/27/25 02:05 Prothrombin Time 12.9 SECONDS (9.0-12.0) H INR International Normalized Ratio 1.3 INR Activated Partial Thromboplast Time 36 SECONDS (22-32) H Coagulation Comments Problem\Assessment\Plan This is a 80-year-old female patient with a 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 The patient was traveling from [facility] to [place] for the [facility], and as she got out of a car she progressively became short of breath and collapsed to the ground. A bystander noticed and started doing chest compressions and called the EMS. On arrival of the EMS, the patient was found to be in asystole. She was coded for 4 minutes and received epinephrine during this time. She was stabilized and brought into the ER, she was awake, alert and oriented x4. However, she was bradycardic and hypotensive due to which ICU was consulted for admission. Out of hospital cardiac arrest Asystole on the field Hypotension secondary to above EKG in the hospital reveals right bundle branch block, PACs and sinus bradycardia Heart rate and blood pressure stable Consulted Dr. Cobos and pacemaker was placed Close telemetry monitoring done Levophed stopped on midodrine 10 mg TID. on Lasix to 20 mg q.6 H along with potassium 40 mEq q.6 H in addition to the protocol. 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 Garland Continued statin Acute on chronic kidney injury: Continue to monitor renal function Lines: PIV DVT prophylaxis: Lovenox Gi prophylaxis: Protonix Diet: Heart healthy Code status: Full code; POA sister Brielle Patient's current condition is guarded we will continue to follow patient in PCU . Date of Service: Jul 27, 2025 Billing Provider: DYLAN CRONIN MD Common Visit Codes: [id number] INP/OBS CARE(HIGH) DYLAN CRONIN MD Jul 27, 2025 19:44
[2025-07-27] MEDS: polyethylene glycol 3350 17gm powd pack PO SCH (20:25)
[2025-07-28] VITALS (20 sets, daily range): BP systolic 98–117; BP diastolic 50–89; PULSE 60–91; RESP 14–24; TEMP 96.5–97.6; O2SAT 90–99
[2025-07-28 06:23] LABS: MEAN PLATELET VOLUME 7.1 FL (7.4-10.4); RED CELL DISTRIBUTION WIDTH 13.6 % (11.5-14.5)
[2025-07-28 06:33] LABS: APTT 34 SECONDS (22-32); INR 1.2 INR
[2025-07-28 06:38] LABS: CREATININE 1.54 MG/DL (0.40-0.90); PHOSPHORUS 3.9 MG/DL (2.3-4.5); TOTAL CARBON DIOXIDE 36.5 MMOL/L (24-32); eCRCL 25 ML/MIN; eGFR 33 ML/MIN
--- NOTE | 2025-07-28 11:12 | RADIOLOGY REPORT ---
EXAM: DI CHEST,SINGLE VIEW HISTORY: sob, coarse breath sounds COMPARISON: DI CHEST,SINGLE VIEW on DOS: 07/24/25, DI CHEST,SINGLE VIEW on DOS: 07/23/25, DI CHEST,SINGLE VIEW on DOS: 07/22/25, DI CHEST,SINGLE VIEW on DOS: 07/21/25, DI CHEST,SINGLE VIEW on DOS: 07/20/25, CT scan of the chest dated 07/23/2025. TECHNIQUE: Portable upright AP view of the chest was performed. FINDINGS: The film is mildly rotated LPO. There are bilateral lung base opacities, stable on the right and improved on the left since the previous chest x-ray. No pneumothorax, consolidative infiltrates, or pulmonary edema. The heart is enlarged. Left chest pacemaker is re-identified. There are degenerative changes of the spine and shoulders. IMPRESSION: 1. Bilateral lung base infiltrates and effusions are stable on the right and improved on the left compared with chest x-ray performed 4 days earlier. 2. Cardiomegaly and left chest pacemaker re-identified.
[2025-07-28] MEDS: bisacodyl 10mg suppository rectal RC STA (11:50)
--- NOTE | 2025-07-28 11:59 | PROGRESS NOTE- Residence ---
Progress Note - Resident Providers to CC Resident Creating Document: NOEMI SUH, RES ~ Antibiotic Timeout Antibiotic Ordered?: Yes Subjective The patient was seen and examined at bedside today. She is on 2 L of oxygen through nasal cannula. She sounds to be having significant upper airway secretions. Suction at bedside. Repeat chest x-ray stable. Awaiting placement. She also reported that she has not passed stools yet. Refused Dulcolax suppository last night and she is getting it this morning. Objective Vital Signs Date Time Temp Pulse Resp B/P (MAP) Pulse Ox O2 Delivery O2 Flow Rate FiO2 07/28/25 11:00 97.2 70 17 117/89 (98) 98 Nasal Cannula 2.0 07/28/25 07:56 28 Result Diagram: 07/28/2560107/28/25601 Elderly female, alert and oriented, ill appearing, appears to be in moderate distress because of pain Head: Normocephalic with an atraumatic Eyes: Pupils- 3mm, reacting to light, conjunctiva- anicteric Nose and throat: No polyps, septum- normal, no mucosal ulcers Neck: Supple, no lymphadenopathy, no carotid bruit Respiratory: On 2L NC, coarse breath sounds bilaterally, tender left upper chest with bandage on pacemaker site Cardiac: S1-S2 heard, rhythm irregular, no gallop/murmur Abdomen: non distended, no tenderness, no organomegaly, bowel sounds - heard Extremities: no clubbing, no pedal edema, no deformities, peripheral pulses - 2+ Skin: warm and dry, no rash, no purpura Neuro: No focal deficit, gross cranial nerve exam - normal Coagulation Studies Laboratory Tests Test 07/28/25 06:02 Prothrombin Time 12.3 SECONDS (9.0-12.0) H INR International Normalized Ratio 1.2 INR Activated Partial Thromboplast Time 34 SECONDS (22-32) H Coagulation Comments Assessment Assessment The 80-year-old female was admitted for systolic, third-degree AV block and got a dual-chamber pacemaker placement done by Dr. High on 07/18/2025. Postprocedure, she developed exacerbation of CHF for which she was on BiPAP and was aggressively diuresed. She is now back on floors. 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 daily, amiodarone 200 mg p.o. b.i.d. On aspirin 81 mg p.o. daily and Eliquis 5 mg p.o. b.i.d. On midodrine 20 mg p.o. q.8h Acute hypoxemic respiratory failure-improving Acute heart failure with preserved ejection fraction exacerbation Possible cardiogenic shock-resolved The patient has significant upper airway secretions. Continue suction. Repeat chest x-ray stable. WBC normalized. No elevated temperatures Requiring 2 L O2 via nasal cannula Continue Zosyn 4.5 g IV q.8h-day 5 Sputum culture showed few Gram-positive cocci in pairs. Chest CTA showed no pulmonary embolism, cardiomegaly with bilateral effusions and mild pulmonary edema, multiple bilateral anterior rib fractures, consolidative changes in left lower lobe. 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 Garland Continue atorvastatin 80 mg and aspirin 81 mg daily. Acute on chronic kidney stage III A Hyponatremia, Hypokalemia, hypophosphatemia Held diuresis for now Creatinine trending up Replace electrolytes as per protocol Normocytic normochromic anemia H&H stable Platelets improved to normal level DVT prophylaxis: Eliquis Gi prophylaxis: Protonix Diet: Heart healthy and sodium restricted diet Code status: Full code; ANNETTA sister Brielle PT: Post-acute care Disposition: Continue care in PCU. Pending placement. Continue pain management. Noemi Suh MD Internal Medicine Resident, PGY-2 The patient was seen, examined and discussed with the attending physician, Dr. Garza. Date of Service: Jul 28, 2025 Billing Provider: DYLAN GARZA MD Common Visit Codes: [id number] INP/OBS CARE(HIGH) NOEMI SUH, RES Jul 28, 2025 11:59 DYLAN GARZA MD Jul 28, 2025 19:04
[2025-07-29] VITALS (21 sets, daily range): BP systolic 96–124; BP diastolic 46–87; PULSE 66–97; RESP 15–24; TEMP 97–97.7; O2SAT 91–99
--- NOTE | 2025-07-29 04:15 | RADIOLOGY REPORT ---
CHEST RADIOGRAPH Indication: SOB Technique: Single frontal view of the chest was obtained Comparison: DI CHEST,SINGLE VIEW on DOS: 07/28/25, DI CHEST,SINGLE VIEW on DOS: 07/24/25, DI CHEST,SINGLE VIEW on DOS: 07/23/25 FINDINGS: Lines and Tubes: Dual-chamber pacemaker is present with right atrial and ventricular leads. Lungs: There are bilateral airspace opacities which are similar in appearance to the prior study. Pleura: Similar bilateral pleural effusions. No pneumothorax. Cardiomediastinal contours: Stable. Bones: No acute osseous abnormality. IMPRESSION: 1. Bilateral airspace opacities and bilateral pleural effusions which are similar in appearance to the prior study.
[2025-07-29 06:28] LABS: MEAN PLATELET VOLUME 7.4 FL (7.4-10.4); RED CELL DISTRIBUTION WIDTH 13.8 % (11.5-14.5)
[2025-07-29 06:35] LABS: CREATININE 1.39 MG/DL (0.40-0.90); PHOSPHORUS 4.0 MG/DL (2.3-4.5); TOTAL CARBON DIOXIDE 38.1 MMOL/L (24-32); eCRCL 28 ML/MIN; eGFR 37 ML/MIN
[2025-07-29 06:37] LABS: APTT 33 SECONDS (22-32); INR 1.3 INR
[2025-07-29] MEDS ORDERED: meropenem inj 500 MG in normal saline 100ml IV soln 100 ML IV SCH (08:00)
[2025-07-29] MEDS: CefTRIAXone 2gm/D5W 50ml BAG 50 ML IV SCH (10:33)
[2025-07-29 11:14] LABS: ABG BASE EXCESS 13.8 mmol/L (-2.0-3.0); ABG HCO3 38.5 mmol/L (21.0-28.0); ABG OXYGEN SATURATION 96.9 % (94.0-98.0); ABG PCO2 (T) 48.4 mmHg (32.0-45.0); ABG PH (T) 7.519 (7.350-7.450); ABG PO2 (T) 85.8 mmHg (83.0-108.0); ALLEN'S TEST POSITIVE; FCOHb 1.2 % (0.5-1.5); FHHb 3.1 % (0.0-5.0); FIO2 36.0 mmHg/%; FMetHb 0.3 % (0.0-1.5); FO2Hb 95.4 % (94.0-98.0); PATIENT TEMPERATURE 37.0; TOTAL HEMOGLOBIN 12.6 G/dl (12.0-16.0)
[2025-07-29] MEDS: potassium Cl 40MEQ/1/2NS 520ml 520 ML IV PRN (15:28)
--- NOTE | 2025-07-29 16:24 | PROGRESS NOTE- Residence ---
Progress Note - Resident Providers to CC Resident Creating Document: NOEMI SUH, RES ~ Antibiotic Timeout Antibiotic Ordered?: Yes Subjective The patient was seen and examined at bedside today. She is currently on 4 L of oxygen through nasal cannula. Last night, she desaturated and was put on Venturi mask. She is currently stable. She is also passing bowels. Objective Vital Signs Date Time Temp Pulse Resp B/P (MAP) Pulse Ox O2 Delivery O2 Flow Rate FiO2 07/29/25 15:40 66 16 Nasal Cannula 3.0 07/29/25 15:35 94 32 07/29/25 15:00 97.6 103/55 (71) Result Diagram: 07/29/25 0544 07/29/25 0544 Elderly female, alert and oriented, ill appearing, appears to be in moderate distress because of pain Head: Normocephalic with an atraumatic Eyes: Pupils- 3mm, reacting to light, conjunctiva- anicteric Nose and throat: No polyps, septum- normal, no mucosal ulcers Neck: Supple, no lymphadenopathy, no carotid bruit Respiratory: On 4L NC, coarse breath sounds bilaterally, tender left upper chest with bandage on pacemaker site Cardiac: S1-S2 heard, rhythm irregular, no gallop/murmur Abdomen: non distended, no tenderness, no organomegaly, bowel sounds - heard Extremities: no clubbing, no pedal edema, no deformities, peripheral pulses - 2+ Skin: warm and dry, no rash, no purpura Neuro: No focal deficit, gross cranial nerve exam - normal Coagulation Studies Laboratory Tests Test 07/29/25 05:44 Prothrombin Time 12.6 SECONDS (9.0-12.0) H INR International Normalized Ratio 1.3 INR Activated Partial Thromboplast Time 33 SECONDS (22-32) H Coagulation Comments Assessment Assessment The 80-year-old female was admitted for systolic, third-degree AV block and got a dual-chamber pacemaker placement done by Dr. High on 07/18/2025. Postprocedure, she developed exacerbation of CHF for which she was on BiPAP and was aggressively diuresed. She is now back on floors. 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 daily, amiodarone 200 mg p.o. b.i.d. On aspirin 81 mg p.o. daily and Eliquis 5 mg p.o. b.i.d. On midodrine 20 mg p.o. q.8h Acute hypoxemic respiratory failure-improving Acute heart failure with preserved ejection fraction exacerbation Possible cardiogenic shock-resolved The patient has significant upper airway secretions. Continue suction. Repeat chest x-ray stable. ABG showed mildly increased pCO2. WBC increased again. No elevated temperatures. Requiring 4 L O2 via nasal cannula Discontinued zosyn and started her on ceftriaxone 1 gm IV daily. Sputum culture showed few Gram-positive cocci in pairs. Chest CTA showed no pulmonary embolism, cardiomegaly with bilateral effusions and mild pulmonary edema, multiple bilateral anterior rib fractures, consolidative changes in left lower lobe. 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 Garland Continue atorvastatin 80 mg and aspirin 81 mg daily. Acute on chronic kidney stage III A Hyponatremia, Hypokalemia, hypophosphatemia Held diuresis for now Creatinine trending up Replace electrolytes as per protocol Normocytic normochromic anemia H&H stable Platelets improved to normal level DVT prophylaxis: Eliquis Gi prophylaxis: Protonix Diet: Heart healthy and sodium restricted diet Code status: Full code; ANNETTA Hannah PT: Post-acute care Disposition: Continue care in PCU. Pending placement. Continue pain management. Noemi Suh MD Internal Medicine Resident, PGY-2 The patient was seen, examined and discussed with the attending physician, Dr. Garza. Date of Service: Jul 29, 2025 Billing Provider: DYLAN GARZA MD Common Visit Codes: [id number] INP/OBS CARE(HIGH) NOEMI SUH, RES Jul 29, 2025 16:24 DYLAN GARZA MD Jul 29, 2025 16:27
[2025-07-30] VITALS (16 sets, daily range): BP systolic 97–143; BP diastolic 52–88; PULSE 66–91; RESP 16–32; TEMP 97.2–97.7; O2SAT 87–97
[2025-07-30 06:36] LABS: MEAN PLATELET VOLUME 7.5 FL (7.4-10.4); RED CELL DISTRIBUTION WIDTH 13.7 % (11.5-14.5)
[2025-07-30 06:45] LABS: APTT 33 SECONDS (22-32); INR 1.3 INR
[2025-07-30 06:52] LABS: CREATININE 1.47 MG/DL (0.40-0.90); PHOSPHORUS 3.3 MG/DL (2.3-4.5); TOTAL CARBON DIOXIDE 34.5 MMOL/L (24-32); eCRCL 26 ML/MIN; eGFR 34 ML/MIN
--- NOTE | 2025-07-30 10:03 | PROGRESS NOTE ---
Daily Progress Note Providers to CC ~ Antibiotic Timeout Antibiotic Ordered?: Yes Subjective No new complaints. Appears short of breath Objective Vital Signs Date Time Temp Pulse Resp B/P (MAP) Pulse Ox O2 Delivery O2 Flow Rate FiO2 07/30/25 08:14 85 07/30/25 07:28 22 Nasal Cannula 3.0 07/30/25 07:19 97 36 07/30/25 06:57 97.3 97/52 (67) Result Diagram: 07/30/25 0607/30/25 0605 Gen. awake alert oriented asymptomatic HEENT: Normocephalic, atraumatic, pupils round reactive to light and accommodation, extraocular movements are intact, sclera anicteric, conjunctiva pinkish, moist oral mucosa, no rash or ulcers. NECK: Supple, no JVD, trachea midline. CHEST Crackles right base , Pacemaker noted HEART: Regular rate rhythm, no murmur gallop or rub. ABDOMEN: Soft, nontender, no organomegaly. EXTREMITIES: No cyanosis clubbing or edema. NEURO EXAM: Grossly nonfocal. MUSCULOSKELETAL : No joint swelling or deformities. SKIN: No rash or ulcers noted. Coagulation Studies Laboratory Tests Test 07/30/25 06:05 Prothrombin Time 13.1 SECONDS (9.0-12.0) H INR International Normalized Ratio 1.3 INR Activated Partial Thromboplast Time 33 SECONDS (22-32) H Coagulation Comments Other Results Medications reviewed Problem\Assessment\Plan This is a 80-year-old female patient with a past medical history of CAD to the LAD presented to the hospital after she had an episode of a cardiac arrest in the field requiring CPR for about 4 minutes. The patient was traveling from [facility] to [facility], and as she got out of a car she progressively became short of breath and collapsed to the ground. A bystander noticed and started doing chest compressions and called the EMS. On arrival of the EMS, the patient was found to be in asystole. She was coded for 4 minutes and received epinephrine during this time. She was stabilized and brought into the ER, she was awake, alert and oriented x4. However, she was bradycardic and hypotensive due to which ICU was consulted for admission. Post cardiac arrest EKG in the hospital reveals right bundle branch block, PACs and sinus bradycardia Heart rate and blood pressure stable Consulted Dr. Cobos and pacemaker was placed Continue monitor on tele Levophed discontiued on midodrine 10 mg TID. on Lasix to 20 mg q.6 H along with potassium 40 mEq q.6 H in addition to the protocol. 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 Garland Continue statin Acute on chronic kidney injury: Daily BMP Anemia: H/H is stable.Continue monitor Lines: PIV DVT prophylaxis: Lovenox Gi prophylaxis: Protonix Diet: Heart healthy Code status: Full code; POA sister Brielle Date of Service: Jul 30, 2025 Billing Provider: JEWEL AMBRIZ MD Common Visit Codes: [id number] INP/OBS CARE(HIGH) JEWEL AMBRIZ MD Jul 30, 2025 10:03
[2025-07-30] MEDS: doxycycline 100mg/NS 100mL PB 100 ML IV SCH (19:24)
[2025-07-31] VITALS (22 sets, daily range): BP systolic 107–148; BP diastolic 53–84; PULSE 74–111; RESP 17–31; TEMP 96–97.5; O2SAT 88–96
[2025-07-31 06:16] LABS: MEAN PLATELET VOLUME 7.5 FL (7.4-10.4); RED CELL DISTRIBUTION WIDTH 14.3 % (11.5-14.5)
[2025-07-31 06:20] LABS: CREATININE 1.40 MG/DL (0.40-0.90); PHOSPHORUS 3.8 MG/DL (2.3-4.5); TOTAL CARBON DIOXIDE 35.9 MMOL/L (24-32); eCRCL 27 ML/MIN; eGFR 36 ML/MIN
[2025-07-31 06:24] LABS: APTT 30 SECONDS (22-32); INR 1.3 INR
--- NOTE | 2025-07-31 14:43 | PROGRESS NOTE ---
Daily Progress Note Providers to CC ~ Antibiotic Timeout Antibiotic Ordered?: Yes Subjective No new complaints. Patient states she does not have rehab benefits and wants to go home when cleared. Objective Vital Signs Date Time Temp Pulse Resp B/P (MAP) Pulse Ox O2 Delivery O2 Flow Rate FiO2 07/31/25 12:07 92 20 Nasal Cannula 3.0 07/31/25 12:01 94 32 07/31/25 11:12 97.5 107/56 (73) Result Diagram: 07/31/25 0540 07/31/25 0540 Gen. awake alert oriented asymptomatic HEENT: Normocephalic, atraumatic, pupils round reactive to light and accommodation, extraocular movements are intact, sclera anicteric, conjunctiva pinkish, moist oral mucosa, no rash or ulcers. NECK: Supple, no JVD, trachea midline. CHEST Crackles right base , Pacemaker noted HEART: Regular rate rhythm, no murmur gallop or rub. ABDOMEN: Soft, nontender, no organomegaly. EXTREMITIES: No cyanosis clubbing or edema. NEURO EXAM: Grossly nonfocal. MUSCULOSKELETAL : No joint swelling or deformities. SKIN: No rash or ulcers noted. Coagulation Studies Laboratory Tests Test 07/31/25 05:40 Prothrombin Time 13.0 SECONDS (9.0-12.0) H INR International Normalized Ratio 1.3 INR Activated Partial Thromboplast Time 30 SECONDS (22-32) Coagulation Comments Other Results Medications reviewed Problem\Assessment\Plan This is a 80-year-old female patient with a past medical history of CAD of the LAD, presented to the hospital after she had an episode of a cardiac arrest in the field requiring CPR for about 4 minutes. The patient was traveling from [facility] to [facility], and as she got out of a car she progressively became short of breath and collapsed to the ground. A bystander noticed and started doing chest compressions and called the EMS. On arrival of the EMS, the patient was found to be in asystole. She was coded for 4 minutes and received epinephrine during this time. She was stabilized and brought into the ER, she was awake, alert and oriented x4. However, she was bradycardic and hypotensive due to which ICU was consulted for admission. Post cardiac arrest EKG in the hospital revealed right bundle branch block, PACs and sinus bradycardia Dr. Cobos was consulted and pacemaker was placed ,Continue monitor on tele Levophed hs been discontiued Now on midodrine 10 mg TID. 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 Garland Continue statin Acute on chronic kidney injury: Daily BMP Anemia: H/H is stable.Continue monitor Lines: PIV DVT prophylaxis: Lovenox Gi prophylaxis: Protonix Diet: Heart healthy Code status: Full code; POA sister Brielle Date of Service: Jul 31, 2025 Billing Provider: JEWEL AMBRIZ MD Common Visit Codes: [id number] INP/OBS CARE(HIGH) JEWEL AMBRIZ MD Jul 31, 2025 14:43
[2025-07-31] MEDS: albuterol 2.5 MG/3 ML nebule NEB PRN (20:05)
[2025-08-01] VITALS (49 sets, daily range): BP systolic 103–183; BP diastolic 44–142; PULSE 71–120; RESP 14–47; TEMP 97.6–98.5; O2SAT 86–100
[2025-08-01] MEDS: diazepam 2mg tablet PO ONE (03:10)
[2025-08-01] MEDS: hydrALAZINE 20mg/ml inj. IV ONE ×2 (03:12→04:22)
[2025-08-01] MEDS: furosemide 10 MG/1 ML 10ml inj IV ONE (04:20)
[2025-08-01 05:33] LABS: ABG BASE EXCESS 5.6 mmol/L (-2.0-3.0); ABG HCO3 28.4 mmol/L (21.0-28.0); ABG OXYGEN SATURATION 95.5 % (94.0-98.0); ABG PCO2 (T) 34.2 mmHg (32.0-45.0); ABG PH (T) 7.535 (7.350-7.450); ABG PO2 (T) 71.0 mmHg (83.0-108.0); ALLEN'S TEST POSITIVE; FCOHb 0.9 % (0.5-1.5); FHHb 4.4 % (0.0-5.0); FIO2 70.0 mmHg/%; FMetHb 0.3 % (0.0-1.5); FO2Hb 94.4 % (94.0-98.0); MODE bipap; PATIENT TEMPERATURE 36.6; TOTAL HEMOGLOBIN 11.2 G/dl (12.0-16.0)
--- NOTE | 2025-08-01 06:12 | RADIOLOGY REPORT ---
CHEST RADIOGRAPH Indication: SOB Technique: Single frontal view of the chest was obtained COMPARISON: DI CHEST,SINGLE VIEW on DOS: 07/29/25, DI CHEST,SINGLE VIEW on DOS: 07/28/25, DI CHEST,SINGLE VIEW on DOS: 07/24/25, DI CHEST,SINGLE VIEW on DOS: 07/23/25, DI CHEST,SINGLE VIEW on DOS: 07/22/25 FINDINGS: Lines and Tubes: None. Left anterior chest wall dual lead cardiac pacing device. Lungs: Mild diffuse increased prominence of the pulmonary vasculature. Small bilateral pleural effusions are stable in appearance. No pneumothorax. Cardiomediastinal contours: Cardiomegaly. Bones: Unremarkable IMPRESSION: 1. Cardiomegaly with mild pulmonary vascular congestion and small bilateral pleural effusions.
--- NOTE | 2025-08-01 07:13 | PROGRESS NOTE ---
Progress Note Dictate Providers to CC ~ Progress Note: Brought to ICU due to Hypoxemia requiring BiPAP Central Line/PICC still needed: No Valencia Indications Met/Not Met: F/C Indications Met Antibiotic Ordered?: No Subjective Subjective Mild distress Objective Vitals Vital Signs Date Time Temp Pulse Resp B/P (MAP) Pulse Ox O2 Delivery O2 Flow Rate FiO2 08/01/25 05:55 109 35 109/52 (71) 95 Bi-pap/CPAP 70 08/01/25 03:53 98.5 08/01/25 02:50 15.0 Lab Results: 07/31/25 0540 07/31/25 0540 Objective Heart: S1-2 reg Lungs: crackles at bases Abdomen: soft, non-tender, BS (+) Ext: No edema Coagulation Studies Laboratory Tests Test 07/31/25 05:40 Prothrombin Time 13.0 SECONDS (9.0-12.0) H INR International Normalized Ratio 1.3 INR Activated Partial Thromboplast Time 30 SECONDS (22-32) Coagulation Comments Problem\Assessment\Plan Additional Plan 1-CHFpEF -Add Diuretics 2-PAF -Rate control -Eliquis 3-S/P PPM 4-Acute Hypoxemic Resp Failure -BiPAP as needed Booker Vivar CC time 35min Sepsis Screening Reassessment Date: Aug 01, 2025 ALMA VIVAR MD Aug 01, 2025 07:13
--- NOTE | 2025-08-01 17:29 | PROGRESS NOTE ---
Daily Progress Note Providers to CC ~ Antibiotic Timeout Antibiotic Ordered?: Yes Subjective None new , patient now in ICU, noted to be on BiPAP. Objective Vital Signs Date Time Temp Pulse Resp B/P (MAP) Pulse Ox O2 Delivery O2 Flow Rate FiO2 08/01/25 17:00 80 29 128/61 (83) 100 Bi-pap/CPAP 40 08/01/25 14:00 98.1 08/01/25 02:50 15.0 Result Diagram: 07/31/25 0540 07/31/25 0540 Gen. awake alert oriented asymptomatic HEENT: Normocephalic, atraumatic, pupils round reactive to light and accommodation, extraocular movements are intact, sclera anicteric, conjunctiva pinkish, moist oral mucosa, no rash or ulcers. NECK: Supple, no JVD, trachea midline. CHEST : Coarse breath sounds anteriorly , Pacemaker noted HEART: Regular rate rhythm, no murmur gallop or rub. ABDOMEN: Soft, nontender, no organomegaly. EXTREMITIES: No cyanosis clubbing or edema. NEURO EXAM: Grossly nonfocal. MUSCULOSKELETAL : No joint swelling or deformities. SKIN: No rash or ulcers noted. Coagulation Studies Laboratory Tests Test 07/31/25 05:40 Prothrombin Time 13.0 SECONDS (9.0-12.0) H INR International Normalized Ratio 1.3 INR Activated Partial Thromboplast Time 30 SECONDS (22-32) Coagulation Comments Other Results Medications reviewed Problem\Assessment\Plan This is a 80-year-old female patient with a past medical history of CAD of the LAD, presented to the hospital after she had an episode of a cardiac arrest in the field requiring CPR for about 4 minutes. The patient was traveling from [facility] to [facility], and as she got out of a car she progressively became short of breath and collapsed to the ground. A bystander noticed and started doing chest compressions and called the EMS. On arrival of the EMS, the patient was found to be in asystole. She was coded for 4 minutes and received epinephrine during this time. She was stabilized and brought into the ER, she was awake, alert and oriented x4. However, she was bradycardic and hypotensive due to which ICU was consulted for admission. #Acute respiratory failure: Continue supplemental oxygen and BiPAP PRN # post cardiac arrest: Patient underwent a pacemaker placement. She was initially on Levophed which was discontinued. # AFib: Rate controlled. Presently in sinus rhythm. Continue monitor on tele. Continue Eliquis. # coronary artery disease : Patient has a history of PTCA to the proximal and distal LAD in 2002: Patient follows with a taker away in [facility]. Continue statin. Presently asymptomatic # Bryan/CKD: Continue monitor daily BMP Anemia: H/H is stable.Continue monitor Lines: PIV DVT prophylaxis: Lovenox Gi prophylaxis: Protonix Diet: Heart healthy Code status: Full code; POA sister Brielle Date of Service: Aug 01, 2025 Billing Provider: JEWEL AMBRIZ MD Common Visit Codes: [id number] INP/OBS CARE(HIGH) JEWEL AMBRIZ MD Aug 01, 2025 17:29
[2025-08-01] MEDS: HYDROcodone/acetaminophen 5mg/325mg tablet PO PRN (22:27)
[2025-08-02] VITALS (36 sets, daily range): BP systolic 87–130; BP diastolic 36–67; PULSE 62–113; RESP 11–26; O2SAT 81–100
--- NOTE | 2025-08-02 06:43 | PROGRESS NOTE ---
Progress Note Dictate Providers to CC ~ Progress Note: On HFNC O2 Central Line/PICC still needed: N\A Valencia Indications Met/Not Met: F/C Indications Met Antibiotic Ordered?: No Subjective Subjective Mild respiratory distress Objective Vitals Vital Signs Date Time Temp Pulse Resp B/P (MAP) Pulse Ox O2 Delivery O2 Flow Rate FiO2 08/02/25 06:01 68 12 100/45 (63) 100 High Flow Nasal Cannula 40.0 40 08/02/25 04:02 97.7 Lab Results: 07/31/25 0540 07/31/25 0540 Objective Heart: S1-2 reg Lungs: crackles at bases Abdomen: soft, non-tender, BS (+) Ext: No edema Coagulation Studies Laboratory Tests Test 07/31/25 05:40 Prothrombin Time 13.0 SECONDS (9.0-12.0) H INR International Normalized Ratio 1.3 INR Activated Partial Thromboplast Time 30 SECONDS (22-32) Coagulation Comments Problem\Assessment\Plan Additional Plan 1-CHFpEF -Increase Diuretics 2-PAF -Rate control -Eliquis 3-S/P PPM 4-Acute Hypoxemic Resp Failure -BiPAP as needed -HFNC O2 Booker Vivar CC time 35min Sepsis Screening Reassessment Date: Aug 02, 2025 ALMA VIVAR MD Aug 02, 2025 06:43
[2025-08-02 09:19] LABS: CREATININE 1.66 MG/DL (0.40-0.90); TOTAL CARBON DIOXIDE 35.9 MMOL/L (24-32); eCRCL 23 ML/MIN; eGFR 30 ML/MIN
--- NOTE | 2025-08-02 09:20 | RADIOLOGY REPORT ---
CHEST RADIOGRAPH Indication: infiltrate Technique: Single frontal view of the chest was obtained. Comparison: DI CHEST,SINGLE VIEW on DOS: 08/01/25 Findings: Left chest wall pacemaker. Persistent pulmonary vascular congestion. Probable small bilateral pleural effusions. No pneumothorax. Stable cardiomediastinal silhouette. IMPRESSION: Persistent pulmonary vascular congestion.
--- NOTE | 2025-08-02 16:10 | PROGRESS NOTE ---
Daily Progress Note Providers to CC ~ Antibiotic Timeout Antibiotic Ordered?: Yes Subjective Reports feeling better. Patient is sitting on a bedside chair. Objective Vital Signs Date Time Temp Pulse Resp B/P (MAP) Pulse Ox O2 Delivery O2 Flow Rate FiO2 08/02/25 15:16 76 16 Nasal Cannula 1.0 08/02/25 15:09 99 28 08/02/25 15:00 107/63 (78) 08/02/25 07:00 97.9 Result Diagram: 07/31/25 0540 08/02/25 0856 Gen. awake alert oriented asymptomatic HEENT: Normocephalic, atraumatic, pupils round reactive to light and accommodation, extraocular movements are intact, sclera anicteric, conjunctiva pinkish, moist oral mucosa, no rash or ulcers. NECK: Supple, no JVD, trachea midline. CHEST : Crackles at bases, occasional expiratory rhonchi , Pacemaker noted HEART: Regular rate rhythm, no murmur gallop or rub. ABDOMEN: Soft, nontender, no organomegaly. EXTREMITIES: No cyanosis clubbing or edema. NEURO EXAM: Grossly nonfocal. MUSCULOSKELETAL : No joint swelling or deformities. SKIN: No rash or ulcers noted. Coagulation Studies Laboratory Tests Test 07/31/25 05:40 Prothrombin Time 13.0 SECONDS (9.0-12.0) H INR International Normalized Ratio 1.3 INR Activated Partial Thromboplast Time 30 SECONDS (22-32) Coagulation Comments Other Results Medications reviewed Problem\Assessment\Plan This is a 80-year-old female patient with a past medical history of CAD of the LAD, presented to the hospital after she had an episode of a cardiac arrest in the field requiring CPR for about 4 minutes. The patient was traveling from [facility] to [place] for [facility], and as she got out of a car she progressively became short of breath and collapsed to the ground. A bystander noticed and started doing chest compressions and called the EMS. On arrival of the EMS, the patient was found to be in asystole. She was coded for 4 minutes and received epinephrine during this time. She was stabilized and brought into the ER, she was awake, alert and oriented x4. However, she was bradycardic and hypotensive due to which ICU was consulted for admission. #Acute respiratory failure: Continue supplemental oxygen and BiPAP PRN # post cardiac arrest: Patient underwent a pacemaker placement. She was initially on Levophed which was discontinued. # AFib: Rate controlled. Presently in sinus rhythm. Continue monitor on tele. Continue Eliquis. 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. Continue statin. Presently asymptomatic # Bryan/CKD: Continue monitor daily BMP Anemia: H/H is stable.Continue monitor Lines: PIV DVT prophylaxis: Lovenox Gi prophylaxis: Protonix Diet: Heart healthy Code status: Full code; POA sister Brielle Date of Service: Aug 02, 2025 Billing Provider: JEWEL AMBRIZ MD Common Visit Codes: [id number] INP/OBS CARE(HIGH) JEWEL AMBRIZ MD Aug 02, 2025 16:10
[2025-08-03] VITALS (29 sets, daily range): BP systolic 87–118; BP diastolic 44–65; PULSE 60–94; RESP 12–24; TEMP 97.2–97.7; O2SAT 92–100
[2025-08-03 06:18] LABS: MEAN PLATELET VOLUME 8.2 FL (7.4-10.4); RED CELL DISTRIBUTION WIDTH 14.2 % (11.5-14.5)
[2025-08-03 06:31] LABS: CREATININE 1.71 MG/DL (0.40-0.90); TOTAL CARBON DIOXIDE 37.0 MMOL/L (24-32); eCRCL 22 ML/MIN; eGFR 29 ML/MIN
[2025-08-03 08:04] LABS: PHOSPHORUS 5.5 MG/DL (2.3-4.5)
--- NOTE | 2025-08-03 09:57 | PROGRESS NOTE- Residence ---
Progress Note - Resident Providers to CC Resident Creating Document: RALPH SLATER RES ~ Antibiotic Timeout Antibiotic Ordered?: No Subjective The patient was seen and examined at CICU today. She is doing well overall. She remains on 3 L O2 via NC. Still in A-fib with CVR. The pacemaker site is clean and dry with no erythema, tendrness, or draininage. Renal function trending up; Cr is 1.7 today. Objective Vital Signs Date Time Temp Pulse Resp B/P (MAP) Pulse Ox O2 Delivery O2 Flow Rate FiO2 08/03/25 07:35 65 18 Nasal Cannula 3.0 08/03/25 07:25 97 32 08/03/25 07:00 98.1 94/44 (61) General: Awake and Alert, On 3 L O2 Resp: mild-basilar crackles Heart: Sinus rhythm after cardioversion Abdomen: Soft and non tender no organomegaly Extremities: 1+ pedal edema Skin: Warm and Dry. Result Diagram: 08/03/25 0513 08/03/25 0513 Coagulation Studies Laboratory Tests Test 07/31/25 05:40 Prothrombin Time 13.0 SECONDS (9.0-12.0) H INR International Normalized Ratio 1.3 INR Activated Partial Thromboplast Time 30 SECONDS (22-32) Coagulation Comments Advance Care Planning Advanced Care plannin - 30 Minutes Assessment Assessment The 80-year-old female was admitted for systolic, third-degree AV block and got a dual-chamber pacemaker placement done by Dr. Molina on 07/18/2025. Postprocedure, she developed exacerbation of CHF for which she was on BiPAP and was aggressively diuresed. Now, on 3 L O2 via NC. Still in A-fib with CVR. Plan Plan 1. Third-degree AV block with asystole Status post dual-chamber pacemaker 07/18/2025. Device functioning appropriately. No evidence of lead malfunction or signs of infection. 2. Atrial fibrillation with CVR Heart rate in the 80's S/P electrical cardioversion on 07/21/2025 Amiodarone decreased to 100 mg PO BID; 08/03/25 Continue Eliquis 5 mg twice daily 3. Acute hypoxemic respiratory failure, improving 4. Acute CHFpEF exacerbation Perfusing well with 3 L O2 via NC Monitor respiratory status closely Continue diuresis with Lasix 40 mg Q8H. Cr is trending up. Closely monitor renal function, we may consider backing down on Lasix tomorrow. Metolazone reduced to 5 mg po daily (08/03/25) Strictly monitor JUAN JOSÉ's, Heart healthy diet 5. Coronary artery disease, status post proximal distal LAD stent Aggressive cardiovascular risk factor modification recommended, including: - Heart healthy diet: Low-fat, low-cholesterol, low-sodium - Maintain ideal body weight and engage in regular aerobic exercise as tolerated - Achieve lipid goal with LDL less than 70 mg/dL - Optimize blood pressure control - Adherence to guideline directed medical therapy 6. Hypertension 7. Hyperlipidemia Counseled on coronary risk factor modifications Continue current management Disposition: Renal funcing is trending up (Cr 1.4 to 1.66 to 1.71 today). We will continue to monitor her kidney function. Given the rise in Cr, the dose of metolazone is reduced to 5 mg po daily. Amiodarone is reduced to 100 mg po daily. She woud like to follow up with her carediologist in the [facility], Dr. Ky Garland, once stable. Patient seen and examined by Dr. Janel AGUIRRE. Discussed with warehouse picker team. Ralph Slater Internal Medicine Resident, PGY-3 (Cardiology) Patient seen and examined by Dr. aJnel AGUIRRE. Patient slowly feeling better after diuresis. Keep her potassium above four and magnesium about two. Titrate diuretics as required. Recommend iron supplementation to keep her hemoglobin above 10 g% Encourage incentive spirometry and physical therapy and ambulation. Date of Service: Aug 03, 2025 Billing Provider: MACI MOLINA MD, SHAMS, NICOLE Aug 03, 2025 09:57 MACI MOLINA MD Aug 03, 2025 17:38
--- NOTE | 2025-08-03 14:23 | PROGRESS NOTE ---
Daily Progress Note Providers to CC ~ Antibiotic Timeout Antibiotic Ordered?: Yes Subjective No new complaints, sister at bedside, patient is resting comfortably. Objective Vital Signs Date Time Temp Pulse Resp B/P (MAP) Pulse Ox O2 Delivery O2 Flow Rate FiO2 08/03/25 14:00 73 24 98/45 (62) 97 Nasal Cannula 3.0 08/03/25 10:38 32 08/03/25 09:00 97.9 Result Diagram: 08/03/2551208/03/25512 Gen. awake alert oriented asymptomatic HEENT: Normocephalic, atraumatic, pupils round reactive to light and accommodation, extraocular movements are intact, sclera anicteric, conjunctiva pinkish, moist oral mucosa, no rash or ulcers. NECK: Supple, no JVD, trachea midline. CHEST : CTA anteriorly , Pacemaker noted HEART: Regular rate rhythm, no murmur gallop or rub. ABDOMEN: Soft, nontender, no organomegaly. EXTREMITIES: No cyanosis clubbing or edema. NEURO EXAM: Grossly nonfocal. MUSCULOSKELETAL : No joint swelling or deformities. SKIN: No rash or ulcers noted. Coagulation Studies Laboratory Tests Test 07/31/25 05:40 Prothrombin Time 13.0 SECONDS (9.0-12.0) H INR International Normalized Ratio 1.3 INR Activated Partial Thromboplast Time 30 SECONDS (22-32) Coagulation Comments Other Results Medications reviewed Problem\Assessment\Plan This is a 80-year-old female patient with a past medical history of CAD of the LAD, presented to the hospital after she had an episode of a cardiac arrest in the field requiring CPR for about 4 minutes. The patient was traveling from [facility] to [facility], and as she got out of a car she progressively became short of breath and collapsed to the ground. A bystander noticed and started doing chest compressions and called the EMS. On arrival of the EMS, the patient was found to be in asystole. She was coded for 4 minutes and received epinephrine during this time. She was stabilized and brought into the ER, she was awake, alert and oriented x4. However, she was bradycardic and hypotensive due to which ICU was consulted for admission. #Acute respiratory failure: Continue supplemental oxygen and BiPAP PRN #Hypokalemia Replace per protocol. # Post cardiac arrest: Patient underwent a pacemaker placement. She was initially on Levophed which was discontinued. Doing well # AFib: Rate controlled. Paced beats noted. Presently in sinus rhythm. Continue monitor on tele. Continue Eliquis. # Coronary artery disease : Patient has a history of PTCA to the proximal and distal LAD in 2002: Patient follows with a pipelayer in [facility]. Continue statin. Presently asymptomatic # EVONNE /CKD: Continue monitor daily BMP Anemia: H/H is stable.Continue monitor Lines: PIV DVT prophylaxis: Lovenox Gi prophylaxis: Protonix Diet: Heart healthy Code status: Full code; POA sister Brielle Date of Service: Aug 03, 2025 Billing Provider: JEWEL AMBRIZ MD Common Visit Codes: [id number] INP/OBS CARE(HIGH) JEWEL AMBRIZ MD Aug 03, 2025 14:23
[2025-08-03] MEDS: amiodarone 100mg tablet PO SCH (20:30)
[2025-08-04] VITALS (23 sets, daily range): BP systolic 106–125; BP diastolic 54–63; PULSE 60–86; RESP 14–21; TEMP 97.2–97.9; O2SAT 92–100
[2025-08-04 07:20] LABS: MEAN PLATELET VOLUME 8.4 FL (7.4-10.4); RED CELL DISTRIBUTION WIDTH 14.6 % (11.5-14.5)
[2025-08-04 07:32] LABS: CREATININE 1.62 MG/DL (0.40-0.90); PHOSPHORUS 4.3 MG/DL (2.3-4.5); TOTAL CARBON DIOXIDE 36.2 MMOL/L (24-32); eCRCL 24 ML/MIN; eGFR 31 ML/MIN
--- NOTE | 2025-08-04 15:31 | PROGRESS NOTE ---
Daily Progress Note Providers to CC ~ Antibiotic Timeout Antibiotic Ordered?: Yes Subjective Patient reports feeling better. She states that her potassium keeps going down. Objective Vital Signs Date Time Temp Pulse Resp B/P (MAP) Pulse Ox O2 Delivery O2 Flow Rate FiO2 08/04/25 15:24 74 20 Nasal Cannula 3.0 08/04/25 15:18 92 32 08/04/25 02:00 97.2 109/55 (73) Result Diagram: 08/04/25 0611 08/04/25 0933 Gen. awake alert oriented asymptomatic HEENT: Normocephalic, atraumatic, pupils round reactive to light and accommodation, extraocular movements are intact, sclera anicteric, conjunctiva pinkish, moist oral mucosa, no rash or ulcers. NECK: Supple, no JVD, trachea midline. CHEST : CTA anteriorly , Pacemaker noted HEART: Regular rate rhythm, no murmur gallop or rub. ABDOMEN: Soft, nontender, no organomegaly. EXTREMITIES: No cyanosis clubbing or edema. NEURO EXAM: Grossly nonfocal. MUSCULOSKELETAL : No joint swelling or deformities. SKIN: No rash or ulcers noted. Bruises noted. Coagulation Studies Laboratory Tests Test 07/31/25 05:40 Prothrombin Time 13.0 SECONDS (9.0-12.0) H INR International Normalized Ratio 1.3 INR Activated Partial Thromboplast Time 30 SECONDS (22-32) Coagulation Comments Other Results Medications reviewed Problem\Assessment\Plan This is a 80-year-old female patient with a past medical history of CAD of the LAD, presented to the hospital after she had an episode of a cardiac arrest in the field requiring CPR for about 4 minutes. The patient was traveling from [facility] to [facility], and as she got out of a car she progressively became short of breath and collapsed to the ground. A bystander noticed and started doing chest compressions and called the EMS. On arrival of the EMS, the patient was found to be in asystole. She was coded for 4 minutes and received epinephrine during this time. She was stabilized and brought into the ER, she was awake, alert and oriented x4. However, she was bradycardic and hypotensive due to which ICU was consulted for admission. #Acute respiratory failure: Continue supplemental oxygen and BiPAP PRN #Hypokalemia: Continue attempts to replace per protocol # Post cardiac arrest: Patient underwent a pacemaker placement. She was initially on Levophed which was discontinued. Doing wel # AFib: Rate controlled. Paced beats noted. Presently in sinus rhythm. Continue monitor on tele. Continue Eliquis. # Coronary artery disease : Patient has a history of PTCA to the proximal and distal LAD in 2002: Patient follows with a plant custodian in [facility]. Continue statin. Presently asymptomatic # EVONNE /CKD: Continue monitor daily BMP. We will request Nephrology consultation. Anemia: H/H is stable.Continue monitor Lines: PIV DVT prophylaxis: Lovenox Gi prophylaxis: Protonix Diet: Heart healthy Code status: Full code; POA sister Brielle Date of Service: Aug 04, 2025 Billing Provider: JEWEL AMBRIZ MD Common Visit Codes: [id number] INP/OBS CARE(HIGH) JEWEL AMBRIZ MD Aug 04, 2025 15:31
--- NOTE | 2025-08-04 17:30 | PROGRESS NOTE- Residence ---
Progress Note - Resident Providers to CC Resident Creating Document: GABRIELE FARFAN RES ~ Antibiotic Timeout Antibiotic Ordered?: No Subjective Patient was seen in PCU. She expressed concern about low potassium levels. She has been taking Lasix, metolazone, and acetazolamide. Given evidence of volume depletion with contraction alkalosis, diuretic adjustments were made to improve potassium and optimize volume status. Lasix was held until tomorrow. Repeat BNP and creatinine we will be obtained tomorrow, and Lasix dosing will be adjusted accordingly. Metolazone and acetazolamide were discontinued. Spironolactone 25 mg p.o. daily will be initiated started tomorrow. Potassium 40 mg p.o. now, and 40 mg p.o. in 1 hour. Objective Vital Signs Date Time Temp Pulse Resp B/P (MAP) Pulse Ox O2 Delivery O2 Flow Rate FiO2 08/04/25 15:24 74 20 Nasal Cannula 3.0 08/04/25 15:18 92 32 08/04/25 02:00 97.2 109/55 (73) General: Awake and Alert, On 3 L O2 , appears dry Resp: mild-basilar crackles Heart: Sinus rhythm after cardioversion Abdomen: Soft and non tender no organomegaly Extremities: 1+ pedal edema Skin: Warm and Dry. Result Diagram: 08/04/25 0611 08/04/25 0933 Coagulation Studies Laboratory Tests Test 07/31/25 05:40 Prothrombin Time 13.0 SECONDS (9.0-12.0) H INR International Normalized Ratio 1.3 INR Activated Partial Thromboplast Time 30 SECONDS (22-32) Coagulation Comments Advance Care Planning Advanced Care plannin - 30 Minutes Assessment Assessment The 80-year-old female was admitted for systolic, third-degree AV block and got a dual-chamber pacemaker placement done by Dr. Molina on 07/18/2025. Postprocedure, she developed exacerbation of CHF for which she was on BiPAP and was aggressively diuresed. Now, on 3 L O2 via NC. Still in A-fib with CVR. Plan Plan 1. Third-degree AV block with asystole Status post dual-chamber pacemaker 07/18/2025. Device functioning appropriately. No evidence of lead malfunction or signs of infection. 2. Atrial fibrillation with CVR Heart rate in the 80's S/P electrical cardioversion on 07/21/2025 Amiodarone decreased to 100 mg PO BID; 08/03/25 Continue Eliquis 5 mg twice daily 3. Acute hypoxemic respiratory failure, improving 4. Acute CHFpEF exacerbation Perfusing well with 3 L O2 via NC Monitor respiratory status closely Continue diuresis with Lasix 40 mg Q8H. Cr is trending up. Closely monitor renal function, we may consider backing down on Lasix tomorrow. Metolazone reduced to 5 mg po daily (08/03/25) Strictly monitor JUAN JOSÉ's, Heart healthy diet Plan: She has been taking Lasix, metolazone, and acetazolamide. Given evidence of volume depletion with contraction alkalosis, diuretic adjustments were made to improve potassium and optimize volume status. Lasix was held until tomorrow. Repeat BNP in creatinine we will be obtained tomorrow, and Lasix dosing will be adjusted accordingly. Metolazone and acetazolamide were discontinued. Spironolactone 25 mg p.o. daily will be initiated started tomorrow. 5. Hypokalemia On Lasix, metolazone, and acetazolamide. All three discontinued. Spironolactone 25 mg p.o. daily initiated Oral Potassium 40 now, and 40 mEq in 1 hour Monitor BMP closely 6. Coronary artery disease, status post proximal distal LAD stent Aggressive cardiovascular risk factor modification recommended, including: - Heart healthy diet: Low-fat, low-cholesterol, low-sodium - Maintain ideal body weight and engage in regular aerobic exercise as tolerated - Achieve lipid goal with LDL less than 70 mg/dL - Optimize blood pressure control - Adherence to guideline directed medical therapy 7. Hypertension 8. Hyperlipidemia Counseled on coronary risk factor modifications Continue current management [facility] Internal Medicine Resident, PGY-3 (Cardiology) Patient seen and examined by Dr. Janel AGUIRRE. Patient slowly feeling better after diuresis. Keep her potassium above four and magnesium about two. Titrate diuretics as required. Recommend iron supplementation to keep her hemoglobin above 10 g% Encourage incentive spirometry and physical therapy and ambulation. Patient seen and examined by Dr. Janel AGUIRRE. Patient is up in PCU. Sister at bedside. Patient continues to be hypokalemic. We will hold Lasix and stop metolazone. Add spironolactone 25 mg p.o. q.day. we will also add p.o. potassium supplementation to keep her potassium between four and five. Date of Service: Aug 04, 2025 Billing Provider: MACI MOLINA MD, SHAMS, [facility] Aug 04, 2025 17:30 MACI MOLINA MD Aug 04, 2025 17:36
[2025-08-04] MEDS: potassium Cl 20 mEq SR tablet PO STA (17:32)
[2025-08-04] MEDS: potassium Cl 20 mEq SR tablet PO ONE (20:16)
[2025-08-05] VITALS (20 sets, daily range): BP systolic 100–133; BP diastolic 50–78; PULSE 62–114; RESP 15–26; TEMP 97.2–98; O2SAT 95–99
[2025-08-05 07:06] LABS: MEAN PLATELET VOLUME 7.6 FL (7.4-10.4); RED CELL DISTRIBUTION WIDTH 14.9 % (11.5-14.5)
[2025-08-05 07:22] LABS: CREATININE 1.25 MG/DL (0.40-0.90); TOTAL CARBON DIOXIDE 36.4 MMOL/L (24-32); eCRCL 31 ML/MIN; eGFR 41 ML/MIN
[2025-08-05 07:30] LABS: PHOSPHORUS 3.7 MG/DL (2.3-4.5); PRO BRAIN NATRIURETIC PEPTIDE 11129 PG/ML (0-450)
--- NOTE | 2025-08-05 07:53 | RADIOLOGY REPORT ---
CHEST RADIOGRAPH Indication: pulmonary congestion Technique: Single frontal view of the chest was obtained. Comparison: DI CHEST,SINGLE VIEW on DOS: 08/02/25, DI CHEST,SINGLE VIEW on DOS: 08/01/25, DI CHEST,SINGLE VIEW on DOS: 07/29/25, DI CHEST,SINGLE VIEW on DOS: 07/28/25, DI CHEST,SINGLE VIEW on DOS: 07/24/25, DI CHEST,SINGLE VIEW on DOS: 08/02/25 FINDINGS: Left chest wall pacemaker. Persistent pulmonary vascular congestion. Probable small bilateral pleural effusions. No pneumothorax. Stable cardiomediastinal silhouette. IMPRESSION: 1. Persistent pulmonary vascular congestion.
[2025-08-05] MEDS: potassium Cl 20 mEq SR tablet PO SCH ×2 (08:34→09:34)
--- NOTE | 2025-08-05 11:50 | PROGRESS NOTE- Residence ---
Progress Note - Resident Providers to CC Resident Creating Document: RALPH SLATER RES ~ Antibiotic Timeout Antibiotic Ordered?: No Subjective Patient was seen in PCU. She is in high spirit, happy about her potassium slightly increased. CXR repeated today shows pulmonary vascular congestion and proBNP is significantly elevated (>11,000). Objective Vital Signs Date Time Temp Pulse Resp B/P (MAP) Pulse Ox O2 Delivery O2 Flow Rate FiO2 08/05/25 11:06 74 22 Nasal Cannula 3.0 08/05/25 11:00 97.3 113/54 (73) 98 08/05/25 10:56 32 General: Awake and Alert, On 3 L O2 , appears dry Resp: mild-basilar crackles Heart: Sinus rhythm after cardioversion Abdomen: Soft and non tender no organomegaly Extremities: 1+ pedal edema Skin: Warm and Dry. Result Diagram: 08/05/25 0632 08/05/25 0656 Coagulation Studies Laboratory Tests Test 07/31/25 05:40 Prothrombin Time 13.0 SECONDS (9.0-12.0) H INR International Normalized Ratio 1.3 INR Activated Partial Thromboplast Time 30 SECONDS (22-32) Coagulation Comments Advance Care Planning Advanced Care plannin - 30 Minutes Assessment Assessment The 80-year-old female was admitted for systolic, third-degree AV block and got a dual-chamber pacemaker placement done by Dr. Molina on 07/18/2025. Postprocedure, she developed exacerbation of CHF for which she was on BiPAP and was aggressively diuresed. Now, on 3 L O2 via NC. Still in A-fib with CVR. Plan Plan 1. Third-degree AV block with asystole Status post dual-chamber pacemaker 07/18/2025. Device functioning appropriately. No evidence of lead malfunction or signs of infection. 2. Atrial fibrillation with CVR Heart rate in the 70's S/P electrical cardioversion on 07/21/2025 Amiodarone decreased to 100 mg PO BID; 08/03/25 Continue Eliquis 5 mg twice daily 3. Acute hypoxemic respiratory failure, improving 4. Acute CHFpEF exacerbation Perfusing well with 3 L O2 via NC Monitor respiratory status closely Continue diuresis with Lasix 40 mg Q8H. Cr is trending up. Closely monitor renal function, we may consider backing down on Lasix tomorrow. Metolazone reduced to 5 mg po daily (08/03/25) Strictly monitor JUAN JOSÉ's, Heart healthy diet Plan: She has been taking Lasix, metolazone, and acetazolamide. Given evidence of volume depletion with contraction alkalosis, diuretic adjustments were made to improve potassium and optimize volume status. Lasix was held until tomorrow. Repeat BNP in creatinine we will be obtained tomorrow, and Lasix dosing will be adjusted accordingly. Metolazone and acetazolamide were discontinued. Spironolactone 25 mg p.o. daily will be initiated started tomorrow. 08/05/25: CXR shows [place] [address]. She still requires diuresis with lasix 40mg IV twice daily. 5. Hypokalemia On Lasix, metolazone, and acetazolamide. All three discontinued. Spironolactone 25 mg p.o. daily initiated Oral Potassium 40 now, and 40 mEq in 1 hour Monitor BMP closely 6. Coronary artery disease, status post proximal distal LAD stent Aggressive cardiovascular risk factor modification recommended, including: - Heart healthy diet: Low-fat, low-cholesterol, low-sodium - Maintain ideal body weight and engage in regular aerobic exercise as tolerated - Achieve lipid goal with LDL less than 70 mg/dL - Optimize blood pressure control - Adherence to guideline directed medical therapy 7. Hypertension 8. Hyperlipidemia Counseled on coronary risk factor modifications Continue current management [facility] Resident, PGY-3 (Cardiology) Patient seen and examined by Dr. Janel AGUIRRE. Patient is up in PCU. Sister at bedside. Patient seen and examined again in evening by Dr. Janel AGUIRRE. With aggressive potassium replacement her potassium is 4.1 now. Continue diuresis and potassium replacement. Keep her euvolemic. Date of Service: Aug 05, 2025 Billing Provider: MACI MOLINA MD, SHAMS, NICOLE Aug 05, 2025 11:50 MACI MOLINA MD Aug 05, 2025 17:13
[2025-08-05] MEDS: potassium Cl 20 mEq SR tablet PO ONE ×2 (12:15→21:17)
--- NOTE | 2025-08-05 12:56 | PROGRESS NOTE ---
Daily Progress Note Providers to CC ~ Antibiotic Timeout Antibiotic Ordered?: Yes Subjective Patient is sitting on the bedside chair , has no new complaints, Objective Vital Signs Date Time Temp Pulse Resp B/P (MAP) Pulse Ox O2 Delivery O2 Flow Rate FiO2 08/05/25 11:06 74 22 Nasal Cannula 3.0 08/05/25 11:00 97.3 113/54 (73) 98 08/05/25 10:56 32 Result Diagram: 08/05/25 0632 08/05/25 0656 Gen. awake alert oriented asymptomatic HEENT: Normocephalic, atraumatic, pupils round reactive to light and accommodation, extraocular movements are intact, sclera anicteric, conjunctiva pinkish, moist oral mucosa, no rash or ulcers. NECK: Supple, no JVD, trachea midline. CHEST : CTA anteriorly , Pacemaker noted HEART: Regular rate rhythm, no murmur gallop or rub. ABDOMEN: Soft, Non tender, no organomegaly. EXTREMITIES: No cyanosis clubbing or edema. NEURO EXAM: Grossly non focal. MUSCULOSKELETAL : No joint swelling or deformities. SKIN: No rash or ulcers noted. Bruises noted. Coagulation Studies Laboratory Tests Test 07/31/25 05:40 Prothrombin Time 13.0 SECONDS (9.0-12.0) H INR International Normalized Ratio 1.3 INR Activated Partial Thromboplast Time 30 SECONDS (22-32) Coagulation Comments Other Results Medications reviewed Problem\Assessment\Plan This is a 80-year-old female patient with a past medical history of CAD of the LAD, presented to the hospital after she had an episode of a cardiac arrest in the field requiring CPR for about 4 minutes. The patient was traveling from [facility] to [facility], and as she got out of a car she progressively became short of breath and collapsed to the ground. A bystander noticed and started doing chest compressions and called the EMS. On arrival of the EMS, the patient was found to be in asystole. She was coded for 4 minutes and received epinephrine during this time. She was stabilized and brought into the ER, she was awake, alert and oriented x4. However, she was bradycardic and hypotensive due to which ICU was consulted for admission. #Acute respiratory failure: Continue supplemental oxygen and BiPAP PRN #Hypokalemia Replace per protocol. # Post cardiac arrest: Patient underwent a pacemaker placement. Patient required a pressor support and levophed has been discontinued now . # AFib: Rate controlled. Continue monitor on tele. Continue Eliquis. # Coronary artery disease : Patient has a history of PTCA to the proximal and distal LAD in 2002: Patient follows with a travel registered nurse icu in [facility]. Continue statin. Presently asymptomatic # EVONNE /CKD: Continue monitor daily BMP Anemia: H/H is stable.Continue monitor Lines: PIV Left arm DVT prophylaxis: Lovenox Gi prophylaxis: Protonix Diet: Heart healthy Code status: Full code; POA sister Brielle Date of Service: Aug 05, 2025 Billing Provider: JEWEL AMBRIZ MD Common Visit Codes: [id number] INP/OBS CARE(HIGH) JEWEL AMBRIZ MD Aug 05, 2025 12:56
[2025-08-05 13:54] LABS: LEUKOCYTE ESTERASE ,URINE NEGATIVE (Neg); NITRITES, URINE NEGATIVE (Neg); OCCULT BLOOD,URINE NEGATIVE (Neg)
[2025-08-05 14:01] LABS: CREATININE,URINE RANDOM 11.0 MG/DL; UA UREA RANDOM 202.0 MG/DL
[2025-08-05 14:13] LABS: UA COLLECTION TYPE NON-SPECIFIED
[2025-08-05 14:38] LABS: UA EOSINOPHILS NO EOS /HPF
--- NOTE | 2025-08-05 16:58 | CONSULTATION REPORT ---
Consult Providers to CC ~ History of Present Illness Reason for Admit\Complaint: Cardiac Arrest History of Present Illness This is a 80-year-old woman with a history of coronary artery disease (status post PTCA to proximal and distal LAD in 2002) who presented with [id number] cardiac arrest, requiring 34 minutes of CPR and epinephrine, followed by bradycardia and hypotension necessitating ICU admission, vasopressor support, and eventual pacemaker placement. She did not require intubation but was on BiPAP for a period. During her hospitalization, she developed acute kidney injury (EVONNE), most likely due to ischemic acute tubular necrosis (ATN) in the setting of cardiac arrest and subsequent hemodynamic instability. She has had significant hypervolemia during her hospital course, managed with aggressive diuresis (furosemide, metolazone, acetazolamide), and now appears to be intravascularly volume depleted, with only trace lower extremity edema. Laboratory evaluation reveals a creatinine of 1.25 (baseline unknown), BUN 45, hemoglobin 9.1, albumin 2.6, BNP 11,129, and bland urine sediment. She is mildly tachypneic, on 3L nasal cannula, and hemodynamically stable on exam. Her potassium is now normalized with supplementation. The clinical picture is consistent with resolving ischemic ATN in the setting of prior volume overload, now likely over-diuresed with resultant intravascular depletion. Allergies: Coded Allergies: No Known Allergies (Unverified , 07/17/25) Home Medications Home Medications Active Reported Eliquis (Apixaban) 5 Mg Tablet 1 Tab PO BID Rosuvastatin Calcium 40 Mg Tablet 1 Tab PO DAILY Losartan Potassium 50 Mg Tablet 1 Tab PO HS Carvedilol ER (Carvedilol Phosphate) 10 Mg Cpmp.24hr 1 Cap PO DAILY Propafenone HCl 425 Mg Cap.er.12h 1 Cap PO BID Past Medical History Past Medical History Reviewed Past Surgical History Surgical History Comment Reviewed Family History Family History: Patient reports no known family medical history. Past Social History Social History Comment Reviewed Exam Vitals: Vital Signs Date Time Temp Pulse Resp B/P (MAP) Pulse Ox O2 Delivery O2 Flow Rate FiO2 08/05/25 16:07 18 08/05/25 15:58 80 Nasal Cannula 3.0 08/05/25 15:36 97 32 08/05/25 15:00 97.2 106/50 (68) Alert, appears comfortable RRR w/o murmur CTAB +BS, NT trace edema Diagnostic Data Last Recorded Lab Results: 08/05/25 0632 08/05/25 1607 Diagnostic Data: I & O 08/05/25 07:00 Intake Total 1050 ml Output Total 1450 ml Balance -400 ml Intake Oral 1050 ml Output Urine Total 1450 ml # Voids 1 Laboratory Tests Test 07/31/25 05:40 Prothrombin Time 13.0 SECONDS (9.0-12.0) H INR International Normalized Ratio 1.3 INR Activated Partial Thromboplast Time 30 SECONDS (22-32) Coagulation Comments Problems: (1) Cardiac arrest Status: Acute Assessment & Plan: History of Coronary Artery Disease and Recent Cardiac Arrest High risk for further cardiac events. Requires careful volume and hemodynamic management. Continue telemetry monitoring. Maintain euvolemia. Coordinate with cardiology for ongoing management and pacemaker follow-up. (2) Disorders of fluid, electrolyte, and acid-base balance Assessment & Plan: Electrolyte Abnormalities Potassium normalized with supplementation; monitor for ongoing losses. Magnesium and phosphorus within acceptable range. Continue to monitor and replete as needed. (3) EVONNE (acute kidney injury) Assessment & Plan: Acute Kidney Injury (likely ischemic ATN) Most likely due to ischemic injury from cardiac arrest and hypotension. [place] urine sediment and FEurea calculation support ATN. Creatinine is improving, suggesting recovery phase. Monitor renal function daily. Avoid further nephrotoxins. Adjust medication dosing for current renal function. (4) Intravascular volume depletion Assessment & Plan: Intravascular Volume Depletion Clinical exam and recent aggressive diuresis suggest intravascular depletion despite trace edema. Low albumin may contribute to third-spacing. Hold further diuretics. Consider cautious isotonic fluid boluses ([id number] mL NS) with close monitoring. Reassess volume status after each intervention. (5) Anemia Assessment & Plan: Anemia of Chronic Disease/Acute Illness Hemoglobin 9.1, likely multifactorial. Monitor hemoglobin/hematocrit. Transfuse only if symptomatic or hemoglobin <78 g/dL. ALTAF RIZZO III DO Aug 05, 2025 16:58
[2025-08-05] MEDS ORDERED: potassium Cl 20 mEq SR tablet PO SCH (17:30)
[2025-08-06] VITALS (18 sets, daily range): BP systolic 103–133; BP diastolic 54–78; PULSE 62–114; RESP 15–25; TEMP 97–98.2; O2SAT 95–98
[2025-08-06 07:25] LABS: MEAN PLATELET VOLUME 7.9 FL (7.4-10.4); RED CELL DISTRIBUTION WIDTH 15.4 % (11.5-14.5)
[2025-08-06 08:21] LABS: CREATININE 1.35 MG/DL (0.40-0.90); PHOSPHORUS 3.9 MG/DL (2.3-4.5); PRO BRAIN NATRIURETIC PEPTIDE 7164 PG/ML (0-450); TOTAL CARBON DIOXIDE 34.2 MMOL/L (24-32); eCRCL 28 ML/MIN; eGFR 38 ML/MIN
[2025-08-06] MEDS: potassium Cl 20 mEq SR tablet PO SCH (08:27)
[2025-08-06] MEDS: carvedilol 6.25mg tablet PO SCH (09:52)
[2025-08-06] MEDS: potassium Cl 20 mEq SR tablet PO STA (09:52)
--- NOTE | 2025-08-06 12:27 | PROGRESS NOTE- Residence ---
Progress Note - Resident Providers to CC Resident Creating Document: RALPH SLATER RES ~ Antibiotic Timeout Antibiotic Ordered?: No Subjective Patient was seen in PCU while sitting on a chair. She is doing well, happy about her potassium level. For rate control, Coreg 6.25 mg BID was added. Will continue to diurese her with lasix 40 mg IV BID. Objective Vital Signs Date Time Temp Pulse Resp B/P (MAP) Pulse Ox O2 Delivery O2 Flow Rate FiO2 08/06/25 11:15 100 18 96 Nasal Cannula* 2 28 08/06/25 08:00 118/65 (82) 106/54 (71) 08/06/25 06:02 98.0 General: Awake and Alert, On 3 L O2 , appears dry Resp: mild-basilar crackles Heart: Sinus rhythm after cardioversion Abdomen: Soft and non tender no organomegaly Extremities: 1+ pedal edema Skin: Warm and Dry. Result Diagram: 08/06/25 0654 08/06/25 0654 Coagulation Studies Laboratory Tests Test 07/31/25 05:40 Prothrombin Time 13.0 SECONDS (9.0-12.0) H INR International Normalized Ratio 1.3 INR Activated Partial Thromboplast Time 30 SECONDS (22-32) Coagulation Comments Advance Care Planning Advanced Care plannin - 30 Minutes Assessment Assessment The 80-year-old female was admitted for systolic, third-degree AV block and got a dual-chamber pacemaker placement done by Dr. Molina on 07/18/2025. Postprocedure, she developed exacerbation of CHF for which she was on BiPAP and was aggressively diuresed. Now, on 3 L O2 via NC. Still in A-fib with CVR. Plan Plan 1. Third-degree AV block with asystole Status post dual-chamber pacemaker 07/18/2025. Device functioning appropriately. No evidence of lead malfunction or signs of infection. 2. Atrial fibrillation with CVR Heart rate in the 70's S/P electrical cardioversion on 07/21/2025 Amiodarone decreased to 100 mg PO BID; 08/03/25 Added Coreg 6.25 mg BID today (08/06/25) Continue Eliquis 5 mg twice daily 3. Acute hypoxemic respiratory failure, improving 4. Acute CHFpEF exacerbation Perfusing well with 3 L O2 via NC Monitor respiratory status closely Continue diuresis with Lasix 40 mg Q8H. Cr is trending up. Closely monitor renal function, we may consider backing down on Lasix tomorrow. Metolazone reduced to 5 mg po daily (08/03/25) Strictly monitor JUAN JOSÉ's, Heart healthy diet Plan: She has been taking Lasix, metolazone, and acetazolamide. Given evidence of volume depletion with contraction alkalosis, diuretic adjustments were made to improve potassium and optimize volume status. Lasix was held until tomorrow. Repeat BNP in creatinine we will be obtained tomorrow, and Lasix dosing will be adjusted accordingly. Metolazone and acetazolamide were discontinued. Spironolactone 25 mg p.o. daily will be initiated started tomorrow. 08/05/25: CXR shows pulmonary [place] [address]. She still requires diuresis with lasix 40mg IV twice daily. 08/06/25: Continue Lasix 40 mg IV BID. 5. Hypokalemia, resolving On Lasix, metolazone, and acetazolamide. All three discontinued. Spironolactone 25 mg p.o. daily initiated Given 160 meq of p.o K yesterday, 3.7 today. Given another 40 meq PO today. Monitor BMP closely 6. Coronary artery disease, status post proximal distal LAD stent Aggressive cardiovascular risk factor modification recommended, including: - Heart healthy diet: Low-fat, low-cholesterol, low-sodium - Maintain ideal body weight and engage in regular aerobic exercise as tolerated - Achieve lipid goal with LDL less than 70 mg/dL - Optimize blood pressure control - Adherence to guideline directed medical therapy 7. Hypertension 8. Hyperlipidemia Counseled on coronary risk factor modifications Continue current management Ralph Slater Internal Medicine Resident, PGY-3 (Cardiology) Patient seen and examined by Dr. Janel AGUIRRE. Patient is up in PCU. Continue to supplement potassium and titrate diuretics as required. Encourage discharge planning. Patient prefers to go to a rehab facility close to [place] [address] [place] Date of Service: Aug 06, 2025 Billing Provider: MACI MOLINA MD, SHAMS, NICOLE Aug 06, 2025 12:27 MACI MOLINA MD Aug 06, 2025 13:34
[2025-08-06] MEDS ORDERED: SPIR25TA PO (14:10)
[2025-08-06] MEDS ORDERED: FURO-149 PO (14:10)
[2025-08-06] MEDS ORDERED: AMIO100T PO (14:10)
[2025-08-06] MEDS ORDERED: PANT40TA54 PO (14:10)
[2025-08-06] MEDS ORDERED: FER325T PO (14:10)
[2025-08-06] MEDS ORDERED: IPRA3AMP9 NEB (14:10)
[2025-08-06] MEDS ORDERED: ASPI-1071 PO (14:10)
[2025-08-06] MEDS ORDERED: CARV6.253 PO (14:10)
--- NOTE | 2025-08-06 15:00 | DISCHARGE SUMMARY ---
Discharge Summary Providers to CC ~ Discharge Summary Admission Diagnosis: Cardiac arrrest Hospital Course DATE OF ADMISSION: 07/17/2025 DATE OF DISCHARGE: 08/07/2025 Discharge Diagnosis\Comment: Acute respiratory failure Cardiac arrest AFib CAD Bryan/CKD CHF with preserved EF Operations\Procedures: Pacemaker placement Consultants: Cardiology Nephrology Dr. Segundo Complications: Cardiac arrest Condition on DC: Stable New Medications: Furosemide (Lasix) 40 Mg Tablet 40 MG PO DAILY for 30 Days, #30 TAB Amiodarone HCl (Pacerone) 100 Mg Tablet 100 MG PO BID for 30 Days, #30 TAB Aspirin (Ecotrin*) 81 Mg Tablet. 1 TAB PO DAILY for 30 Days, #30 TAB.SR Carvedilol (Carvedilol) 6.25 Mg Tablet 6.25 MG PO BID for 30 Days, #30 TAB Ferrous Sulfate (Ferrous Sulfate) 325 Mg (65 Mg Iron) Tablet 325 MG PO TID@0830,1230,1730 for 10 Days, #30 TAB Ipratropium/Albuterol Sulfate (IPRAT-ALBUT 0.5-3(2.5) MG/3 ML nebule) 0.5 Mg-3 Mg (2.5 Mg Base)/3 Ml Ampul.neb 3 ML NEB Q4HRT for 30 Days, #120 ML Pantoprazole Sodium (Pantoprazole Sodium) 40 Mg Tablet.dr 40 MG PO BKF for 30 Days, #30 TAB.SR Spironolactone (Aldactone) 25 Mg Tablet 25 MG PO DAILY@0830 for 30 Days, #30 TAB Continued Medications: Apixaban (Eliquis) 5 Mg Tablet 1 TAB PO BID Losartan Potassium (Losartan Potassium) 50 Mg Tablet 1 TAB PO HS Propafenone HCl (Propafenone HCl) 425 Mg Cap.er.12h 1 CAP PO BID Rosuvastatin Calcium (Rosuvastatin Calcium) 40 Mg Tablet 1 TAB PO DAILY Discontinued Medications: Carvedilol Phosphate (Carvedilol ER) 10 Mg Cpmp.24hr 1 CAP PO DAILY Discharge Summary: Reason for admission: 80 years old female with a history of CAD of the LAD, presented to the ER after she had an episode of cardiac arrest in the field requiring CPR x4 minutes. Patient was traveling to [place] for a [employer] and as she got out of the car, she progressively became short of breath and collapsed on the ground. A bystander noted and started doing chest compressions and called the EMS. On arrival of the EMS, patient was noted to be in asystole. She was coded for 4 minutes received epinephrine, was stabilized and brought to the ER where she was awake and alert x4. Patient was bradycardic and hypotensive. Please refer to admission H&P for further details Hospital course: She was admitted on the monitored floor under hospital course as follows. # bradycardia and hypotension: Patient was evaluated by Cardiology and underwent a pacemaker placement. #acute respiratory failure required supplemental oxygen BiPAP #CHF with preserved EF, treated with Coreg, Lasix and spironolactone # hyperlipidemia: Continued on rosuvastatin #hypertension: Continued on losartan #AFib: Continued on amiodarone and Eliquis. # pneumonia ruled out: Patient was initially empirically started on antibiotics however chest x-ray showed CHF and no infiltrate. All cultures has been negative. # code status patient was kept as a full code as per her request Discharge exam: I examined the patient on the day of discharge. Awake cooperative in no acute distress HEENT normocephalic atraumatic extraocular movements are intact Neck supple, no JVD Chest: Decreased breath sounds with crackles at bases Heart regular rate rhythm, no murmur or gallop rub Abdomen is soft, nontender, no organomegaly Extremities no cyanosis clubbing or edema Neuro exam is nonfocal Disposition: Home with home health and oxygen. *Problems/Diagnosis: (1) Cardiac arrest Status: Acute (2) Disorders of fluid, electrolyte, and acid-base balance (3) BRYAN (acute kidney injury) (4) Intravascular volume depletion (5) Anemia Total Time Spent on D/C: > 30 Minutes Date of Service: Aug 07, 2025 Billing Provider: JEWEL AMBRIZ MD Common Visit Codes: 51936-FYL/OBS DISCH DAY >30min JEWEL AMBRIZ MD Aug 06, 2025 15:00
--- NOTE | 2025-08-06 17:18 | PROGRESS NOTE ---
Daily Progress Note Providers to CC ~ Antibiotic Timeout Antibiotic Ordered?: No Subjective No new complaints patient is sitting on a bedside chair ,reports feeling better. Objective Vital Signs Date Time Temp Pulse Resp B/P (MAP) Pulse Ox O2 Delivery O2 Flow Rate FiO2 08/06/25 15:42 83 18 Nasal Cannula 2.0 08/06/25 15:40 95 28 08/06/25 15:00 08/06/25 11:00 97.2 Result Diagram: 08/06/25 0654 08/06/25 0654 Gen. awake alert oriented asymptomatic HEENT: Normocephalic, atraumatic, pupils round reactive to light and accommodation, extraocular movements are intact, sclera anicteric, conjunctiva pinkish, moist oral mucosa, no rash or ulcers. NECK: Supple, no JVD, trachea midline. CHEST : CTA anteriorly , Pacemaker noted HEART: Regular rate rhythm, no murmur gallop or rub. ABDOMEN: Soft, Non tender, no organomegaly. EXTREMITIES: No cyanosis clubbing or edema. NEURO EXAM: Grossly non focal. MUSCULOSKELETAL : No joint swelling or deformities. SKIN: No rash or ulcers noted. Bruises noted. Coagulation Studies Laboratory Tests Test 07/31/25 05:40 Prothrombin Time 13.0 SECONDS (9.0-12.0) H INR International Normalized Ratio 1.3 INR Activated Partial Thromboplast Time 30 SECONDS (22-32) Coagulation Comments Other Results Medications reviewed Problem\Assessment\Plan This is a 80-year-old female patient with a past medical history of CAD of the LAD, presented to the hospital after she had an episode of a cardiac arrest in the field requiring CPR for about 4 minutes. The patient was traveling [facility] to [facility], and as she got out of a car she progressively became short of breath and collapsed to the ground. A bystander noticed and started doing chest compressions and called the EMS. On arrival of the EMS, the patient was found to be in asystole. She was coded for 4 minutes and received epinephrine during this time. She was stabilized and brought into the ER, she was awake, alert and oriented x4. However, she was bradycardic and hypotensive due to which ICU was consulted for admission. #Acute respiratory failure: Improving Continue supplemental oxygen and BiPAP PRN #Hypokalemia Replaced per protocol. # Post cardiac arrest: Patient underwent a pacemaker placement. Patient required a pressor support and levophed has been discontinued now . # AFib: Rate controlled. Continue monitor on tele. Continue Eliquis. # Coronary artery disease : Patient has a history of PTCA to the proximal and distal LAD in 2002: Patient follows with a customer relations consultant in [place]. Continue statin. Presently asymptomatic # EVONNE /CKD: Continue monitor daily BMP Anemia: H/H is stable.Continue monitor Lines: PIV Left arm DVT prophylaxis: Lovenox Gi prophylaxis: Protonix Diet: Heart healthy Code status: Full code; POA sister Brielle Date of Service: Aug 06, 2025 Billing Provider: JEWEL AMBRIZ MD Common Visit Codes: [id number] INP/OBS CARE(HIGH) JEWEL AMBRIZ MD Aug 06, 2025 17:18
--- NOTE | 2025-08-06 21:08 | PROGRESS NOTE ---
Progress Note Dictate Providers to CC ~ Progress Note: This is a 80-year-old woman with a history of coronary artery disease (status post PTCA to proximal and distal LAD in 2002) who presented with [id number] cardiac arrest, requiring 34 minutes of CPR and epinephrine, followed by bradycardia and hypotension necessitating ICU admission, vasopressor support, and eventual pacemaker placement. She did not require intubation but was on BiPAP for a period. During her hospitalization, she developed acute kidney injury (EVONNE), most likely due to ischemic acute tubular necrosis (ATN) in the setting of cardiac arrest and subsequent hemodynamic instability. She has had significant hypervolemia during her hospital course, managed with aggressive diuresis (furosemide, metolazone, acetazolamide), and now appears to be intravascularly volume depleted, with only trace lower extremity edema. Laboratory evaluation reveals a creatinine of 1.25 (baseline unknown), BUN 45, hemoglobin 9.1, albumin 2.6, BNP 11,129, and bland urine sediment. She is mildly tachypneic, on 3L nasal cannula, and hemodynamically stable on exam. Her potassium is now normalized with supplementation. The clinical picture is consistent with resolving ischemic ATN in the setting of prior volume overload, now likely over-diuresed with resultant intravascular depletion. Antibiotic Ordered?: N/A Subjective Subjective Doing well today, no specific complaints Objective Vitals Vital Signs Date Time Temp Pulse Resp B/P (MAP) Pulse Ox O2 Delivery O2 Flow Rate FiO2 08/06/25 18:30 69 08/06/25 17:57 14 08/06/25 15:42 Nasal Cannula 2.0 08/06/25 15:40 95 28 08/06/25 15:00 97.0 111/67 (82) RRR w/o murmur CTAB +BS, NT + trace edema Lab Results: 08/06/25 0654 08/06/25 0654 Coagulation Studies Laboratory Tests Test 07/31/25 05:40 Prothrombin Time 13.0 SECONDS (9.0-12.0) H INR International Normalized Ratio 1.3 INR Activated Partial Thromboplast Time 30 SECONDS (22-32) Coagulation Comments Other Results I & O 08/06/25 07:00 Intake Total 1550 ml Output Total 1250 ml Balance 300 ml Intake Oral 1550 ml Output Urine Total 1250 ml # Bowel Movements 2 Problem\Assessment\Plan Problems/Diagnosis: (1) Cardiac arrest Assessment & Plan: History of Coronary Artery Disease and Recent Cardiac Arrest High risk for further cardiac events. Requires careful volume and hemodynamic management. Continue telemetry monitoring. Maintain euvolemia. Coordinate with cardiology for ongoing management and pacemaker follow-up. (2) Disorders of fluid, electrolyte, and acid-base balance Assessment & Plan: Electrolyte Abnormalities Potassium normalized with supplementation; monitor for ongoing losses. Magnesium and phosphorus within acceptable range. Continue to monitor and replete as needed. (3) EVONNE (acute kidney injury) Assessment & Plan: Acute Kidney Injury (likely ischemic ATN) improving Most likely due to ischemic injury from cardiac arrest and hypotension. [place] urine sediment and FEurea calculation support ATN. Creatinine is improving, suggesting recovery phase. Monitor renal function daily. Avoid further nephrotoxins. Adjust medication dosing for current renal function. (4) Intravascular volume depletion Assessment & Plan: Intravascular Volume Depletion Clinical exam and recent aggressive diuresis suggest intravascular depletion despite trace edema. Low albumin may contribute to third-spacing. Hold further diuretics. Consider cautious isotonic fluid boluses (759200 mL NS) with close monitoring. Reassess volume status after each intervention. (5) Anemia Assessment & Plan: Anemia of Chronic Disease/Acute Illness Hemoglobin 9.1, likely multifactorial. Monitor hemoglobin/hematocrit. Transfuse only if symptomatic or hemoglobin <78 g/dL. ALTAF RIZZO III DO Aug 06, 2025 21:08
[2025-08-07 02:00] VITALS: BP 124/80; PULSE 64; RESP 22; TEMP 97.8; O2SAT 91
[2025-08-07 06:49] LABS: MEAN PLATELET VOLUME 8.1 FL (7.4-10.4); RED CELL DISTRIBUTION WIDTH 15.5 % (11.5-14.5)
[2025-08-07 07:07] LABS: CREATININE 1.33 MG/DL (0.40-0.90); PHOSPHORUS 4.3 MG/DL (2.3-4.5); TOTAL CARBON DIOXIDE 35.5 MMOL/L (24-32); eCRCL 29 ML/MIN; eGFR 39 ML/MIN
[2025-08-07 07:16] VITALS: PULSE 67; RESP 16; O2SAT 98
[2025-08-07 07:25] VITALS: PULSE 68; RESP 16
[2025-08-07 08:06] VITALS: BP_SYST 110
[2025-08-07 08:37] VITALS: RESP 18
[2025-08-07] MEDS: bisacodyl 10mg suppository rectal RC PRN (08:50)
--- NOTE | 2025-08-07 09:24 | PROGRESS NOTE- Residence ---
Progress Note - Resident Providers to CC Resident Creating Document: RALPH FARFAN RES ~ Antibiotic Timeout Antibiotic Ordered?: No Subjective Patient was seen in PCU while sitting on a chair. She is in high spirits in excited about going home. I reviewed her medications in the lab work with her this morning. We also discussed the next step to follow up with her material man in [place] area. Objective Vital Signs Date Time Temp Pulse Resp B/P (MAP) Pulse Ox O2 Delivery O2 Flow Rate FiO2 08/07/25 08:37 18 Room Air 08/07/25 07:25 68 1.0 08/07/25 07:16 98 24 08/07/25 02:00 97.8 124/80 (95) General: Awake and Alert, On 1 L O2 , appears dry Resp: mild-basilar crackles . Pacemaker site is clean and dry. no signs of inflammation. Heart: Sinus rhythm after cardioversion Abdomen: Soft and non tender no organomegaly Extremities: 1+ pedal edema Skin: Warm and Dry. Result Diagram: 08/07/25 0615 08/07/25 0615 Coagulation Studies Laboratory Tests Test 07/31/25 05:40 Prothrombin Time 13.0 SECONDS (9.0-12.0) H INR International Normalized Ratio 1.3 INR Activated Partial Thromboplast Time 30 SECONDS (22-32) Coagulation Comments Advance Care Planning Advanced Care plannin - 30 Minutes Assessment Assessment Patient with a history of complete heart block status post dual-chamber pacemaker placement on 07/18/2025. Surgical site is clean. No evidence of infection. Patient also has atrial fibrillation; now rate controlled in the 70s, status post electrical cardioversion on 07/21/2025. She also have acute exacerbation of CHF with preserved ejection fraction. Being diuresed with Lasix 40 mg IV twice daily along with potassium supplementation. Plan Plan 1. Third-degree AV block with asystole Status post dual-chamber pacemaker 07/18/2025. Device functioning appropriately. No evidence of lead malfunction or signs of infection. 2. Atrial fibrillation with CVR Heart rate in the 70's S/P electrical cardioversion on 07/21/2025 Amiodarone decreased to 100 mg PO BID; 08/03/25 Added Coreg 6.25 mg BID today (08/06/25) Continue Eliquis 5 mg twice daily 3. Acute hypoxemic respiratory failure, improving 4. Acute CHFpEF exacerbation Perfusing well with 3 L O2 via NC Monitor respiratory status closely Continue diuresis with Lasix 40 mg Q8H. Cr is trending up. Closely monitor renal function, we may consider backing down on Lasix tomorrow. Metolazone reduced to 5 mg po daily (08/03/25) Strictly monitor JUAN JOSÉ's, Heart healthy diet Plan: She has been taking Lasix, metolazone, and acetazolamide. Given evidence of volume depletion with contraction alkalosis, diuretic adjustments were made to improve potassium and optimize volume status. Lasix was held until tomorrow. Repeat BNP in creatinine we will be obtained tomorrow, and Lasix dosing will be adjusted accordingly. Metolazone and acetazolamide were discontinued. Spironolactone 25 mg p.o. daily will be initiated started tomorrow. 08/05/25: CXR shows pulmonary [place] [address]. She still requires diuresis with lasix 40mg IV twice daily. 08/06/25: Continue Lasix 40 mg IV BID. 5. Hypokalemia, resolving Continue Spironolactone 25 mg p.o. Potassium supplementation Monitor BMP closely 6. Coronary artery disease, status post proximal distal LAD stent Aggressive cardiovascular risk factor modification recommended, including: - Heart healthy diet: Low-fat, low-cholesterol, low-sodium - Maintain ideal body weight and engage in regular aerobic exercise as tolerated - Achieve lipid goal with LDL less than 70 mg/dL - Optimize blood pressure control - Adherence to guideline directed medical therapy 7. Hypertension 8. Hyperlipidemia Counseled on coronary risk factor modifications Continue current management Disposition: Continue the following upon discharge: Amiodarone 100 mg p.o. b.i.d. Carvedilol 6.25 mg b.i.d. Eliquis 5 mg b.i.d. Furosemide 40 mg p.o. b.i.d. Spironolactone 25 mg p.o. daily Potassium supplementation Maintain serum potassium above four and magnesium above two. Propafenone discontinued. Class 1 C antiarrhythmic drug, C/I in patient with structural heart disease/CAD. Repeat proBNP and BMP in one week. Patient will follow up with her material man in the [place] area. [facility] Internal Medicine Resident, PGY-3 (Cardiology) Patient's case reviewed with resident physician by Dr. BARRERA. Discharge medications reviewed. Patient recommended to follow up with primary physician as well as primary material man when she returns home. Date of Service: Aug 07, 2025 Billing Provider: MACI MOLINA MDRALPH, RES Aug 07, 2025 09:24 MACI MOLINA MD Aug 07, 2025 16:57
== END 2025-08-07 09:44 | disposition home or self-care (01) | DRG 242 ==
LOC: ER 17:34 → ED HOLD 19:11 → EDBEDREQ 21:30 → CICU 2S 22:10 → PCU 3S 07-19 12:30 → CICU 2S 07-20 13:03 → PCU 3S 07-27 17:43 → CICU 2S 08-01 05:44 → PCU 3S 08-03 16:00
PROVIDERS: ADMIT Internal Medicine Critical Care Medicine; ATTEND Internal Medicine Critical Care Medicine
PROC: 0JH606Z Insertion of Pacemaker, Dual Chamber into Chest Subcutaneous Tissue and Fascia, Open Approach (ICD-10-PCS; principal; 2025-07-18)
PROC: 02H63JZ Insertion of Pacemaker Lead into Right Atrium, Percutaneous Approach (ICD-10-PCS; 2025-07-18)
PROC: 02HK3JZ Insertion of Pacemaker Lead into Right Ventricle, Percutaneous Approach (ICD-10-PCS; 2025-07-18)
PROC: 5A0935A Assistance with Respiratory Ventilation, Less than 24 Consecutive Hours, High Flow/Velocity Cannula (ICD-10-PCS; 2025-07-18)
PROC: 02HV33Z Insertion of Infusion Device into Superior Vena Cava, Percutaneous Approach (ICD-10-PCS; 2025-07-20)
PROC: B548ZZA Ultrasonography of Superior Vena Cava, Guidance (ICD-10-PCS; 2025-07-20)
PROC: 5A09357 Assistance with Respiratory Ventilation, Less than 24 Consecutive Hours, Continuous Positive Airway Pressure (ICD-10-PCS; 2025-07-20)
PROC: 5A2204Z Restoration of Cardiac Rhythm, Single (ICD-10-PCS; 2025-07-21)
PROC: 5A0935A Assistance with Respiratory Ventilation, Less than 24 Consecutive Hours, High Flow/Velocity Cannula (ICD-10-PCS; 2025-07-21)
PROC: 5A09357 Assistance with Respiratory Ventilation, Less than 24 Consecutive Hours, Continuous Positive Airway Pressure (ICD-10-PCS; 2025-07-22)
PROC: B32T1ZZ Computerized Tomography (CT Scan) of Left Pulmonary Artery using Low Osmolar Contrast (ICD-10-PCS; 2025-07-23)
PROC: B3201ZZ Computerized Tomography (CT Scan) of Thoracic Aorta using Low Osmolar Contrast (ICD-10-PCS; 2025-07-23)
PROC: B32S1ZZ Computerized Tomography (CT Scan) of Right Pulmonary Artery using Low Osmolar Contrast (ICD-10-PCS; 2025-07-23)
PROC: 5A09357 Assistance with Respiratory Ventilation, Less than 24 Consecutive Hours, Continuous Positive Airway Pressure (ICD-10-PCS; 2025-07-23)
PROC: 5A0945A Assistance with Respiratory Ventilation, 24-96 Consecutive Hours, High Flow/Velocity Cannula (ICD-10-PCS; 2025-07-23)
PROC: 03HY32Z Insertion of Monitoring Device into Upper Artery, Percutaneous Approach (ICD-10-PCS; 2025-07-26)
PROC: 5A0935A Assistance with Respiratory Ventilation, Less than 24 Consecutive Hours, High Flow/Velocity Cannula (ICD-10-PCS; 2025-08-01)
PROC: 5A09357 Assistance with Respiratory Ventilation, Less than 24 Consecutive Hours, Continuous Positive Airway Pressure (ICD-10-PCS; 2025-08-01)
PROC: 5A0935A Assistance with Respiratory Ventilation, Less than 24 Consecutive Hours, High Flow/Velocity Cannula (ICD-10-PCS; 2025-08-02)
PROC: 5A09357 Assistance with Respiratory Ventilation, Less than 24 Consecutive Hours, Continuous Positive Airway Pressure (ICD-10-PCS; 2025-08-02)
DX: I44.2 Atrioventricular block, complete (principal); I46.9 Cardiac arrest, cause unspecified; I50.33 Acute on chronic diastolic (congestive) heart failure; R57.0 Cardiogenic shock; J80 Acute respiratory distress syndrome; Z20.822 Contact with and (suspected) exposure to COVID-19; I13.0 Hypertensive heart and chronic kidney disease with heart failure and stage 1 through stage 4 chronic kidney disease, or unspecified chronic kidney disease; E83.39 Other disorders of phosphorus metabolism; D63.8 Anemia in other chronic diseases classified elsewhere; N17.9 Acute kidney failure, unspecified; Z79.01 Long term (current) use of anticoagulants; N18.31 Chronic kidney disease, stage 3a; E87.1 Hypo-osmolality and hyponatremia; E86.9 Volume depletion, unspecified; I48.0 Paroxysmal atrial fibrillation; E78.5 Hyperlipidemia, unspecified; I25.10 Atherosclerotic heart disease of native coronary artery without angina pectoris; I95.89 Other hypotension; E87.6 Hypokalemia; Z63.4 Disappearance and death of family member; Z79.82 Long term (current) use of aspirin; Z86.73 Personal history of transient ischemic attack (TIA), and cerebral infarction without residual deficits; Z98.61 Coronary angioplasty status
CPT/HCPCS: 33208; 36415; 36600; 71045; 71110; 71275; 80047; 80048; 80053; 80162; 81001; 81003; 82570; 82803; 82948; 83605; 83735; 83880; 84100; 84132; 84145; 84484; 84540; 85007; 85018; 85025; 85610; 85651; 85730; 87040; 87070; 87081; 87088; 87207; 87804; 87811; 92508; 92616; 93005; 93306; 94640; 94660; 94664; 94668; 94760; 94799; 96365; 97110; 97116; 97161; 97164; 97530; 97535; 99152; 99153; 99291; A4565; A4615; A4620; A4624; A4628; A5200; A6212; A6213; A6258; A6260; A6402; A6449; A7015; A9900; C1751; C1758; C1785; C1898; G0378; J0169; J0282; J0360; J0690; J0696; J1160; J1200; J1250; J1271; J1885; J1938; J2250; J2270; J2405; J2470; J2543; J3010; J3373; J3475; J3480; J3490; J7030; J7040; P9047; Q9967